=== PATIENT | female | born 1935 | race Caucasian/White ===

== ENCOUNTER → 2017-10-19 | Outpatient (CLI) | payer OTHER ==
[~2017-10-19] MED LIST: AMLO-114 PO; ASPEC81; ENAL10TA88; FLUT0.15 NAE; IPRA1AER2 INH; MULT-506 PO; SIMV20TA2
[2017-10-19 10:10] LABS: BLOOD UREA NITROGEN 13 mg/dl (7-18); CREATININE 0.91 mg/dl (0.60-1.20)
== END | disposition home or self-care (01) ==
LOC: C.LAB 08:29
PROVIDERS: ATTEND Internal Medicine Pulmonary Disease
DX: J43.9 Emphysema, unspecified (principal); I10 Essential (primary) hypertension

== ENCOUNTER → 2017-10-22 | Outpatient (CLI) | payer OTHER ==
[~2017-10-22] MED LIST changes: +OPTIRAY 320 IV PRN
--- NOTE | 2017-10-22 13:47 | DIAGNOSTIC IMAGING REPORT ---
CT OF THE CHEST WITH IV CONTRAST CLINICAL HISTORY: Emphysema. COMPARISON STUDY: Chest CT November 28, 2015. TECHNIQUE: Following IV administration of 93 mL of Optiray-320, helical axial images of the chest were obtained. Sagittal and coronal reconstructions were viewed as well as maximal intensity projections on an independent 3-D workstation. A dose lowering technique was utilized adhering to the principles of ALARA. CT DOSE: 219.99 mGy.cm FINDINGS: The heart is mildly enlarged. Mild dilatation of the ascending aorta, measuring 4.1 cm at the level the main pulmonary artery is unchanged per there is no thoracic aortic dissection. There is no pericardial effusion. There is a mildly enlarged precarinal lymph node that measures 1.4 cm in short axis diameter. This region was obscured on prior CT of November 28, 2015 due to artifact. However, this node was likely present and is unchanged. Central airways are patent. There is moderate emphysema. Linear and groundglass opacities reflect atelectasis. There is no consolidation to suggest pneumonia. Symmetric biapical opacities are unchanged and reflects scarring. The central airways are patent. There is no pneumothorax or pleural effusion. There are no suspicious pulmonary nodules. Bony thorax is unremarkable. A left renal cyst is partially imaged. Calcifications within visualized portions of the pancreas indicate chronic pancreatitis. A 1.5 cm cystic lesion arising from the superior aspect of the pancreatic body shown on axial image 307 of 346 is unchanged since exam of November 24, 2015. This likely reflects a side branch intraductal papillary mucinous neoplasm. There is moderate atherosclerotic plaque of the thoracic aorta. IMPRESSION: 1. No acute intrathoracic findings. 2. Moderate emphysema. 3. No suspicious pulmonary nodules. 4. Mildly enlarged precarinal lymph node which is nonspecific but likely unchanged since CT of November 24, 2015. 5. 1.5 cm cystic lesion within the pancreatic body which is similar to CT of November 24, 2015 and likely reflects a side branch IPMN. Electronically signed by: Abelino Porter M.D. 10/22/2017 1:45 PM Dictated Date/Time: 10/22/2017 1:25 PM
== END | disposition home or self-care (01) ==
LOC: C.CTS 12:43
PROVIDERS: ATTEND Internal Medicine Pulmonary Disease
DX: J43.9 Emphysema, unspecified (principal)

== ENCOUNTER 2018-02-21 15:39 | Emergency (ER) | payer OTHER ==
[~2018-02-21] VITALS: Ht 163.8 cm; Wt 57.0 kg
[~2018-02-21 15:39] MED LIST changes: -ENAL10TA88; +ENAL10TA88 PO; -OPTIRAY 320 IV PRN; -SIMV20TA2; +SIMV20TA2 PO
[2018-02-21 15:47] VITALS: TEMP 36.6; Ht 163.8 cm; Wt 57.0 kg
--- NOTE | 2018-02-21 16:16 | DIAGNOSTIC IMAGING REPORT ---
L FOOT MIN 3 VIEWS ROUTINE HISTORY: 82 years-old Female L foot pain acute left foot pain status post trauma COMPARISON: None available TECHNIQUE: 3 views of the left foot FINDINGS: Bones are mildly demineralized. At least mild degenerative changes about the first MTP joint with mild to moderate multidigit interphalangeal and mild multidigit metatarsal phalangeal osteoarthritis. Prominent medial marginal spurring about the first metatarsal head with mild hallux valgus deformity compatible with bunion formation with mild adjacent soft tissue prominence. There is an acute transverse fracture involving the base of the fifth metatarsal with apparent intra-articular extension into the metatarsal cuboid joint. Moderate associated soft tissue swelling. No opaque foreign body. Mild spurring about the calcaneus and dorsal midfoot. IMPRESSION: 1. Acute nondisplaced transverse fracture involves the proximal metaphyseal portion of the fifth metatarsal with intra-articular extension. 2. Osteopenic appearance of the bones with degenerative changes as above. The above report was generated using voice recognition software. It may contain grammatical, syntax or spelling errors. Electronically signed by: Joaquin Lopez M.D. 02/21/2018 4:15 PM Dictated Date/Time: 02/21/2018 4:13 PM
[2018-02-21] MEDS ORDERED: ACETAMINOPHEN/CODEINE 300/30MG TAB PO ONE (16:30)
[2018-02-21] MEDS ORDERED: ASPI81TA28 PO (16:30)
[2018-02-21] MEDS ORDERED: ACET300T3 PO (16:31)
--- NOTE | 2018-02-21 16:35 | EMERGENCY ROOM VISIT NOTE ---
History First contact with patient: 15:50 Chief Complaint: FOOT PAIN Stated Complaint: LEFT FOOT PAIN HARD TO WALK History of Present Illness The patient is a 82 year old female who presents to the Emergency Room with complaints of left foot pain. The patient reports that her foot went to sleep, and when she got up to walk, her foot inverted. The patient did not fall to the ground. She denies any pain extending into the ankle or leg. Weightbearing worsens her pain to a 6 out of 10. The patient denies any prior history of left foot injuries. Review of Systems 10 system review was performed and was negative except for pertinent positives and negatives as indicated in history of present illness Past Medical/Surgical History Medical Problems: (1) COPD, moderate (2) High cholesterol (3) HTN (hypertension) Surgical Problems: (1) H/O tubal ligation Family History Patient reports no known family medical history. Social History Smoking Status: Former Smoker Drug Use: none Marital Status: Housing Status: lives with significant other Occupation Status: retired Current/Historical Medications Scheduled Amlodipine (Norvasc), 10 MG PO DAILY Aspirin (Aspirin Ec), 81 MG PO DAILY Enalapril (Vasotec), 10 MG PO DAILY Fluticasone Propionate (Nasal) (Flonase Allergy Relief), 2 SPRAYS HOLLIS DAILY Ipratropium-Albuterol (Combivent Respimat), 1 PUFFS INH QID Multivitamin (Multivitamin), 1 TAB PO DAILY Simvastatin (Zocor), 20 MG PO DAILY Scheduled PRN Acetaminophen/Codeine (Tylenol W/Codeine #3), 1-2 TABS PO q4-6h PRN for Pain Physical Exam Vital Signs Date Time Temp Pulse Resp B/P (MAP) Pulse Ox O2 Delivery O2 Flow Rate FiO2 02/21/18 15:47 36.6 80 20 134/69 88 Nasal Cannula 2.0 Physical Exam CONSTITUTIONAL: Healthy and well nourished. Alert and oriented X 3 with positive affect. Patient does not appear in any acute distress. HEENT: Normocephalic, atraumatic. Pupils equal, round and reactive. NECK: Full active range of motion without discomfort. MUSCULOSKELETAL: Examination of the left foot shows dorsal lateral ecchymosis and edema. The patient has no focal tenderness over the lateral malleolus or deltoid ligament. Negative anterior draw. No focal tenderness over the phalanges, calcaneus or Achilles tendon. Pedal pulses are intact. INTEGUMENTARY: No rash or other significant dermatologic conditions noted. NEUROLOGIC: Left foot and toes are sensory intact. Medical Decision & Procedures ER Provider Diagnostic Interpretation: My interpretation of left foot x-rays shows a transverse intra-articular fracture of the fifth metatarsal. Radiologist report is as follows: L FOOT MIN 3 VIEWS ROUTINE HISTORY: 82 years-old Female L foot pain acute left foot pain status post trauma COMPARISON: None available TECHNIQUE: 3 views of the left foot FINDINGS: Bones are mildly demineralized. At least mild degenerative changes about the first MTP joint with mild to moderate multidigit interphalangeal and mild multidigit metatarsal phalangeal osteoarthritis. Prominent medial marginal spurring about the first metatarsal head with mild hallux valgus deformity compatible with bunion formation with mild adjacent soft tissue prominence. There is an acute transverse fracture involving the base of the fifth metatarsal with apparent intra-articular extension into the metatarsal cuboid joint. Moderate associated soft tissue swelling. No opaque foreign body. Mild spurring about the calcaneus and dorsal midfoot. IMPRESSION: 1. Acute nondisplaced transverse fracture involves the proximal metaphyseal portion of the fifth metatarsal with intra-articular extension. 2. Osteopenic appearance of the bones with degenerative changes as above. ED Course Patient history and physical exam were performed. Nurse's notes were reviewed. Vital signs were reviewed. The patient had an O2 saturation of 88% on room air. She does have an oxygen tank with her. The patient was switched to wall O2 at 2 L/min via nasal cannula. The patient's oxygen saturation elevated to 92 %. The patient reports that this is usually what her levels are. The patient refused any analgesics on initial exam. X-rays of the left foot confirms an intra-articular fracture at the base of the fifth metatarsal. A walking boot was applied. The patient reports that she has multiple ambulatory devices at home, including a wheelchair and walker. She was encouraged to intermittently apply ice and elevate the foot for swelling and pain. On final reevaluation, the patient did request some Tylenol with codeine for pain. The patient was administered this, and provided a prescription for the same. She was warned about constipation and drowsiness while taking this medicine. She was instructed to follow-up with [facility] for further reevaluation and management. The patient was happy with plan of care, and voiced understanding of all discharge instructions, rating her discomfort a 4 out of 10. The case was also discussed with Dr. Acosta, ED attending physician, who agrees with workup and plan of care. Medical Decision [place] Drug Monitoring Program Search Results: patient reviewed within database, no issues identified Medication Reconcilliation Current Medication List: was personally reviewed by me Blood Pressure Screening Patient's blood pressure: Normal blood pressure Impression Primary Impression: Fracture of fifth metatarsal bone of left foot Departure Information Prescriptions Acetaminophen/Codeine (Tylenol W/Codeine #3) 300 Mg/30 Mg Tab 1-2 TABS PO q4-6h Y for Pain, #15 TAB For Initial Treatment Prov: Toby Castañeda PA 02/21/18 Referrals Roger Khalil M.D.(LUÍS) (PCP) Patient Instructions My [facility] Problem Qualifiers Primary Impression: Fracture of fifth metatarsal bone of left foot Encounter type: initial encounter Fracture type: closed Fracture alignment : displaced Qualified Codes: S92.352A - Displaced fracture of fifth metatarsal bone, left foot, initial encounter for closed fracture
[2018-02-21 16:39] VITALS: BP 153/66; PULSE 84; O2SAT 95
--- NOTE | 2018-02-21 23:34 | EMERGENCY ROOM VISIT NOTE ---
ED Visit Note First contact with patient: 15:50 I reviewed the patient's past medical history, medications, and visit nursing notes. I discussed the case with the physician blood donor unit assistant, examined the patient, and agree with the findings and plan as documented in the physician assistants note.
== END 2018-02-21 17:20 | disposition home or self-care (01) ==
LOC: C.EDB 15:41 → C.EDD 17:20
DX: S92.355A Nondisplaced fracture of fifth metatarsal bone, left foot, initial encounter for closed fracture (principal); X58.XXXA Exposure to other specified factors, initial encounter; Z87.891 Personal history of nicotine dependence; Z79.82 Long term (current) use of aspirin; Z79.899 Other long term (current) drug therapy; Z79.52 Long term (current) use of systemic steroids

== ENCOUNTER 2019-10-11 04:22 | Inpatient (IN) ==
[2019-10-11] MEDS ORDERED: fentaNYL citrate 100 MCG/2 ML VIAL IV STA (05:15)
[2019-10-11] MEDS ORDERED: SODIUM CHLORIDE 0.9% 1000ML 1,000 ML IV SCH (05:15)
[2019-10-11] MEDS ORDERED: LORazepam 0.5 MG/1 ML VIAL IV STA (05:27)
[2019-10-11] MEDS ORDERED: fentaNYL citrate 100 MCG/2 ML VIAL IV ONE (05:38)
[2019-10-11 06:10] LABS: Basophils # (auto) 0.03 K/uL (0-0.2); Basophils % (auto) 0.3 %; Eosinophils # (auto) 0.06 K/uL (0-0.5); Eosinophils % (auto) 0.6 %; Hematocrit (blood only) 32.6 % (37-47); Hemoglobin 10.7 g/dL (12.0-16.0); Immature Granulocytes # (auto) 0.03 K/uL (0.00-0.02); Immature Granulocytes % (auto) 0.3 %; Lymphocytes # (auto) 0.66 K/uL (1.2-3.4); Lymphocytes % (auto) 6.1 %; Mean Corpuscular Hemoglobin 29.1 pg (25-34); Mean Corpuscular Hgb Conc 32.8 g/dL (32-36); Mean Corpuscular Volume 88.6 fL (80-100); Mean Platelet Volume 9.5 fL (7.4-10.4); Monocytes # (auto) 0.55 K/uL (0.11-0.59); Monocytes % (auto) 5.1 %; Neutrophils # (auto) 9.49 K/uL (1.4-6.5); Neutrophils % (auto) 87.6 %; Platelet Count 323 K/uL (130-400); RDW Coefficient of Variation 14.6 % (11.5-14.5); RDW Standard Deviation 47.5 fL (36.4-46.3); Red Blood Count 3.68 M/uL (4.2-5.4); White Blood Count 10.82 K/uL (4.8-10.8)
[2019-10-11 06:26] LABS: Albumin Level 3.5 gm/dl (3.4-5.0); BUN Creatinine Ratio 14.7 (10-20); Calcium 9.3 mg/dl (8.5-10.1); Creatinine Clr Calc Pharmacy 38.6 ml/min; Est GFR (African American) 68.1; Est GFR (Non-African American) 58.7; Potassium 4.1 mmol/L (3.5-5.1)
[2019-10-11 06:29] LABS: Bilirubin,Total 0.6 mg/dl (0.2-1); Globulin 3.6 gm/dl (2.5-4.0); Total Protein 7.1 gm/dl (6.4-8.2)
[2019-10-11 06:45] LABS: Partial Thromboplastin Ratio 0.9; Partial Thromboplastin Time 24.4 Seconds (21.0-31.0); Prothrombin Time 10.1 Seconds (9.0-12.0)
--- NOTE | 2019-10-11 06:48 | XRay Report ---
XR chest 1V portable CLINICAL HISTORY: trauma COMPARISON STUDY: Chest radiograph November 20, 2018. FINDINGS: This study is significantly rotated. No pneumothorax or pleural effusion is noted. No lobar consolidation is noted. No evidence for pulmonary edema. Allowing for patient rotation, cardiomediastinal silhouette is likel y unremarkable. IMPRESSION: No acute cardiopulmonary findings. Rotated study. ACT 112: Negative or not required by law. Electronically signed by: Abelino Porter M.D. 10/11/2019 6:47 AM
--- NOTE | 2019-10-11 06:49 | XRay Report ---
XR hip LT min 2V CLINICAL HISTORY: trauma COMPARISON: None FINDINGS: Note is made of an acute displaced left femoral neck fracture. No additional fractures are identified on this examination. Sacroiliac joints and symphysis pubis appear intact. IMPRESSION: Acute displaced left femoral neck fracture. ACT 112: Negative or not required by law. Electronically signed by: Abelino Porter M.D. 10/11/2019 6:48 AM
--- NOTE | 2019-10-11 07:25 | Orthopedic Consultation ---
Date of Consultation October 11, 2019 Assessment & Plan (1) Subcapital fracture of left hip: Will require Left hip hemiarthroplasty to return to ambulation. Small elevation in WBC - recommend UA Keep NPO. Hospitalist service reports that she is otherwise clear for surgery - can plan for surgery this morning. Plan for admission for evaluation by PT/OT before disposition to next level of care. Expect to be WBAT with posterior hip precautions. Plan for 6 weeks of DVT ppxconsider Lovenox while inpatient and transition to daily aspirin, defer choice to the hospitalist service.. History of Present Illness Reason for Consultation: left femoral neck fracture Attending Physician: Ruddy Hancock MD History of Present Illness 84 yo F with O2-dependency from COPD and pulmonary HTN who lives independently tripped over oxygen cord in bathroom, resulting in fall and subsquent pain and difficulty WBing on LLE. Was brought to [place] ED overnight and diagnosed with left femoral neck fracture. She was accompanied in her hospital room today by her daughter, who is the power of litigation attorney associate and her granddaughter. They report that she lives independently and does not use a cane or walker to ambulate. Her oxygen requirement recently increased but she has been cared for recently by her senior ui designer. They deny recent illnesses nor hip pain. Allergies Allergy/AdvReac Type Severity Reaction Status Date / Time bee venom protein (honey bee) Allergy Mild RASH Verified 10/11/19 05:59 Home Medications Home Medications Medication Instructions Recorded Confirmed Type amlodipine 10 mg tablet 10 mg PO DAILY 09/15/19 10/11/19 History aspirin 81 mg tablet,delayed 81 mg PO DAILY 09/15/19 10/11/19 History release enalapril maleate 10 mg tablet 10 mg PO DAILY 09/15/19 10/11/19 History epinephrine 0.3 mg/0.3 mL 0.3 mg IM UD PRN 09/15/19 10/11/19 History injection, auto-injector fluticasone propionate 50 2 sprays INTNAS DAILY 09/15/19 10/11/19 History mcg/actuation nasal spray,suspension ipratropium-albuterol 0.5 mg-3 3 ml INH Q6H PRN ml 09/15/19 10/11/19 History mg(2.5 mg base)/3 mL nebulization soln multivitamin 1 tab PO DAILY 09/15/19 10/11/19 History simvastatin 20 mg tablet 20 mg PO QPM 09/15/19 10/11/19 History cholecalciferol (vitamin D3) 1,000 unit PO DAILY 10/11/19 10/11/19 History [Vitamin D3] Patient History Medical History COPD, moderate (Chronic) High cholesterol (Chronic) HTN (hypertension) (Chronic) Surgical History H/O tubal ligation (Resolved) "1972" Family History Other No pertinent family history Social History Preferred Language: Andorran Communication Ability: Effective Maintenance Supervisor Required: No Beliefs That Will Affect Care: None Current Living Situation: Alone Other Information That Helps Us Care for You: No Feels Safe at Home: Yes Safety Concerns: Feels Safe At This Time Smoking Status: Current every day smoker Tobacco Type: cigarettes ; Do You Dip or Chew Tobacco: No ; Smoking End Date: 1-2 per day. Use to be a 1 PPD smoker. Trying to quit. ; Second Hand Exposure: No ; Tobacco Cessation Education Requested by Patient: Yes Hx Substance Use: No Review of Systems Constitutional: no fever, no chills and no problem reported Eyes: as per Subjective / HPI; no problem reported Ear, Nose, Mouth, Throat: as per Subjective / HPI; no problem reported Respiratory: as per Subjective / HPI; no problem reported Cardiovascular: no edema and no problem reported Gastrointestinal: no nausea, no vomiting and no problem reported Musculoskeletal: as per Subjective / HPI Integumentary: as per Subjective / HPI; no problem reported Neurologic: no tingling, no paresthesia and no problem reported Psychiatric: no problem reported Endocrine: as per Subjective / HPI Hematologic / Lymphatic: as per Subjective / HPI Allergy / Immunological: no problem reported Physical Exam Constitutional: well nourished, + thin and + underweight; no acute distress, not ill appearing and no altered mental status Eyes: PERRL, conjunctivae normal, anicteric sclerae ENMT: external ear and nose normal, oropharynx normal Respiratory: normal respiratory effort; no labored breathing Using oxygen by nasal cannula. Cardiovascular: Extremities: normal capillary refill; no pedal edema Musculoskeletal: Left lower extremity: The skin overlying the hip is without disruption. She has position with high hip and knee flexion, stating this is the most comfortable position. There is no obvious ecchymosis. She can dorsiflex and plantarflex through the her ankle and has positive EHL activity. She has 2+ DP and PT pulses. Sensation is grossly intact to light touch. Results & Data Vital Signs (Past 12 Hours) Vital Signs Temp Pulse Pulse Resp BP BP Pulse Ox 10/11/19 07:11 86 20 140/67 95 10/11/19 06:10 83 16 130/65 94 10/11/19 04:32 36.6 C 95 H 18 147/66 H 95 PG Care Time/CCT Total # of Minutes Spent Total Time Spent with Patient: Total time spent is greater than 50% in coordination of care (as documented) at patient's floor/unit and/or counseling patient: (1) Subcapital fracture of left hip Encounter type: initial encounter Fracture type: closed Qualified Code(s): S72.012A - Unspecified intracapsular fracture of left femur, initial encounter for closed fracture
[2019-10-11] MEDS ORDERED: POLYETHYLENE (MIRALAX) 17 GM PACK PO PRN (07:57)
[2019-10-11] MEDS ORDERED: ONDANSETRON INJ 2 MG/ML 2 ML VIAL IV PRN ×2 (07:57→14:40)
[2019-10-11] MEDS ORDERED: EPINEPHRINE ADULT AUTO-INJECT 0.3 MG SYR IM PRN (07:57)
[2019-10-11] MEDS: SODIUM CHLORIDE 0.9% 1000ML 1,000 ML IV SCH ×2 (09:15→21:20)
[2019-10-11] MEDS: HYDROmorphone INJ 0.5 MG/0.5 ML SYR IV PRN (09:17)
[2019-10-11] MEDS ORDERED: fentaNYL citrate 100 MCG/2 ML VIAL ONE (10:02)
[2019-10-11] MEDS ORDERED: BACITRACIN INJ 50,000 UNIT VIAL ONE (10:07)
[2019-10-11] MEDS ORDERED: BUPIVACAINE 0.5 % 5 MG/1 ML MPF 30ML VIAL ONE (10:07)
[2019-10-11 10:14] LABS: Appearance Urine Clear (Clear); Bilirubin Urine Negative (Negative); Blood Urine Negative (Negative); Color Urine Yellow; Glucose Urine UA Negative (Negative); Ketones Urine Negative (Negative); Leukocyte Esterase Urine Negative (Negative); Nitrite Urine Negative (Negative); Protein Urine Negative (Negative); Specific Gravity Urine 1.011 (1.000-1.030); Urobilinogen Urine Negative (Negative)
--- NOTE | 2019-10-11 10:25 | History and Physical Report ---
DATE OF ADMISSION: 10/11/2019 CHIEF COMPLAINT: Status post fall and left hip fracture. HISTORY OF PRESENT ILLNESS: This is an 84-year-old female with past medical history significant for hyperlipidemia, COPD - on home oxygen, pulmonary hypertension, hypertension. The patient lives alone. She comes with a fall and found to have a left hip fracture. In the middle of the night when she went to bathroom, she tripped on her oxygen cannula and fell in the bathroom. She somehow got into the bedroom and sat in a chair and she waited until 3:30 in the morning to call her daughter and was brought in here. Imaging study shows a left hip fracture. After the pain medication, currently she feels drowsy. She says she did not loss her consciousness. She did not hit her head. Denies any headache, no dizziness, no blurred vision, no earache, no runny nose, no sore throat, no difficulty swallowing. Appetite is okay. No chest pain, no shortness of breath, no cough, no fevers, no nausea, no vomiting, no abdominal pain. Sometimes constipated, but no black stools or bloody stools. Normal bladder movements. No hematuria. No swelling in the legs, no rash. Hemodynamically stable. Daughter says the patient is otherwise very active. She can climb steps and walk without any issues. ALLERGIES: BEE STINGS. PAST MEDICAL HISTORY: As mentioned above. PAST SURGICAL HISTORY: Ligation of oviduct, appendectomy, cataract surgery. MEDICATIONS: The patient is on Flonase 2 sprays to each nostril daily, DuoNeb q.6 hours p.r.n., simvastatin 20 mg p.o. daily, enalapril 10 mg p.o. daily, amlodipine 10 mg p.o. daily, vitamin D 2000 units p.o. daily, EpiPen p.r.n., multivitamins p.o. daily, aspirin 81 mg p.o. daily. FAMILY HISTORY: Significant for mother had diabetes, stroke. Daughter has hypothyroidism. Father at the age of 65. Sister has ND. SOCIAL HISTORY: , currently lives alone. Quit smoking in 2017, smoked for 48 years. Alcohol rare. No drug use. REVIEW OF SYMPTOMS: As per HPI. Rest of the review of systems is negative. PHYSICAL EXAMINATION: GENERAL: The patient is old and frail, not in acute distress. VITAL SIGNS: Temperature 36.6, pulse 83, respiratory rate 16, blood pressure 130/65, oxygen 95% on 2.5 liters. HEENT: No pallor, no icterus. Pupils equal, round, reactive to light. NECK: No JVD, no neck masses, no carotid bruits. CARDIOVASCULAR: S1, S2 heard, regular rhythm. No murmurs. RESPIRATORY SYSTEM: Normal AP diameter. No accessory muscle use. No wheezing, no crackles. ABDOMEN: Soft, bowel sounds present, nontender. No distention. CENTRAL NERVOUS SYSTEM: Cranial nerves II-XII grossly intact. Nonfocal. EXTREMITIES: No edema, no erythema. LABORATORY DATA: WBC 10.8, hemoglobin 10.7, hematocrit 30.6, platelets 323. PT 10.1, INR 1, APTT 24.4. Sodium 133, potassium 4.1, chloride 98, bicarbonate 30, BUN 13, creatinine 0.9, serum glucose 131, calcium 9.3, total bilirubin 0.6, AST 20, ALT 19, alkaline phosphatase 61. Chest x-ray: No acute pulmonary findings. Left hip x-ray: Acute displaced left femoral neck fracture. EKG: Normal sinus rhythm with rate of 92. No significant change from previous EKG. ASSESSMENT AND PLAN: This is an 84-year-old female who presents with fall and left hip fracture. 1. Mechanical fall, left hip fracture, acute displaced left femoral neck fracture. Laboratories are okay. Chest x-ray and EKG are unremarkable. The patient is otherwise active, but she uses oxygen 2.5 liters while resting and sleeping and 3 liters while ambulating because of her chronic obstructive pulmonary disease. The patient should be at acceptable risk to proceed with surgery. We will keep her n.p.o., IV fluids, IV pain medications p.r.n., IV antiemetics p.r.n. and consult Orthopedics. Monitor on the medical floor. 2. History of chronic obstructive pulmonary disease and pulmonary hypertension. Continue home oxygen and and nebulizers p.r.n. Currently stable.Stress echo in 2014 Normal Ef and Pulmonary artery pressure of 49mmhg. 3. Hypertension. Continue amlodipine, enalapril. 4. Hyperlipidemia, on statin. 5. Deep venous thrombosis prophylaxis. Could not put sequential compression devices because of the femur fracture and could not place on anticoagulation secondary to plan for surgery. Postoperatively, deep venous thrombosis prophylaxis per surgery. 6. Disposition: Admit to medical floor. Physical therapy and occupational therapy prior to discharge. Social Service to help with discharge planning. Code status: Level 1, full code. MTDD
--- NOTE | 2019-10-11 10:51 | Anesthesiology Consultation ---
Date of Service October 11, 2019 Assessment & Plan (1) Encounter for pre-operative examination: Chart Review Chart Review: Acceptable Risk for Surgery and Patient NOT seen in Pre Admission Testing Consults Requested none ASA ASA4 Proposed Anesthesia Anesthesia Type: Spinal Risk / Benefits Reviewed With: PT / POA / Parent / Guardian, Accepts Plan and Informed Consent Obtained History Surgery Operation Date: 10/11/19 09:30 Proposed Procedures p Left Bipolar Hip Hemiarthroplasty(Left) - Ruddy Santi Height/Weight Height: 5 ft 5 in Weight: 53.2 kg Allergies Allergy/AdvReac Type Severity Reaction Status Date / Time bee venom protein (honey bee) Allergy Mild RASH Verified 10/11/19 05:59 Medications Home Medications Medication Instructions Recorded Confirmed Last Taken amlodipine 10 mg tablet 10 mg PO DAILY 09/15/19 10/11/19 10/10/19 aspirin 81 mg tablet,delayed 81 mg PO DAILY 09/15/19 10/11/19 10/10/19 release enalapril maleate 10 mg tablet 10 mg PO DAILY 09/15/19 10/11/19 10/10/19 epinephrine 0.3 mg/0.3 mL 0.3 mg IM UD PRN 09/15/19 10/11/19 Unknown injection, auto-injector fluticasone propionate 50 2 sprays INTNAS DAILY 09/15/19 10/11/19 10/10/19 mcg/actuation nasal spray,suspension ipratropium-albuterol 0.5 mg-3 3 ml INH Q6H PRN ml 09/15/19 10/11/19 10/10/19 mg(2.5 mg base)/3 mL nebulization soln multivitamin 1 tab PO DAILY 09/15/19 10/11/19 10/10/19 simvastatin 20 mg tablet 20 mg PO QPM 09/15/19 10/11/19 10/10/19 cholecalciferol (vitamin D3) 1,000 unit PO DAILY 10/11/19 10/11/19 10/10/19 [Vitamin D3] Active Medications Generic Name Dose Route Start Last Admin Trade Name Freq PRN Reason Stop Dose Admin Hydromorphone HCl 0.5 mg 10/11/19 07:57 10/11/19 09:17 Dilaudid IV 10/25/19 07:56 0.5 mg Q3H PRN Administration Pain Sodium Chloride 1,000 mls @ 80 mls/hr 10/11/19 09:00 10/11/19 09:15 Nss 1000ml IV 11/10/19 08:59 80 mls/hr .[id number] SHARITA Administration NPO Date Last Intake of Fluids: 10/10/19 Time Last Intake of Fluids: 23:30 Date Last Intake of Solids: 10/10/19 Time Last Intake of Solids: 21:30 Past Medical History Medical History COPD, moderate (Chronic) High cholesterol (Chronic) HTN (hypertension) (Chronic) Exercise / Class Metabolic Activity IV < 2 Limit ADL/Bedbound Past Family History Family History Other No pertinent family history Past Surgical History Surgical History H/O tubal ligation (Resolved) "1972" History of appendectomy Social History Smoking Status: Current every day smoker tobacco type: cigarettes Do You Dip or Chew Tobacco: No Smoking End Date: 1-2 per day. Use to be a 1 PPD smoker. Trying to quit. Alcohol type: wine alcohol intake frequency: holidays/special occasions only Hx Substance Use: No Physical Exam Vital Signs Last Vital Signs Temp 36.9 C 10/11/19 07:58 Pulse 91 H 10/11/19 07:58 Resp 18 10/11/19 07:58 BP 134/69 10/11/19 07:58 Pulse Ox 91 10/11/19 07:58 Constitutional not obese ENMT Mouth: + edentulous; no TMJ abnormality and oral opening not small Thyromental Distance: < 3.5 Finger Breadths Mallampati Class: II Neck normal visual inspection; neck extension not limited Respiratory normal respiratory effort Auscultation: lungs clear to auscultation bilaterally Cardiovascular Rate/Rhythm: regular rate and regular rhythm Heart Sounds: no murmur Neurologic moves all extremities Psychiatric Orientation: alert and oriented x 3 Testing Laboratory Results 10/11/19 05:52 10/11/19 05:52 PT 10.1 Seconds (9.0-12.0) 10/11/19 05:52 INR 1.0 (0.9-1.1) 10/11/19 05:52 APTT 24.4 Seconds (21.0-31.0) 10/11/19 05:52 Urine Color Yellow 10/11/19 09:55 Urine Appearance Clear (Clear) 10/11/19 09:55 Urine pH 8.0 (4.5-7.5) H 10/11/19 09:55 Ur Specific [place] 1.011 (1.000-1.030) 10/11/19 09:55 Urine Protein Negative (Negative) 10/11/19 09:55 Urine Glucose (UA) Negative (Negative) 10/11/19 09:55 Urine Ketones Negative (Negative) 10/11/19 09:55 Urine Nitrite Negative (Negative) 10/11/19 09:55 Ur Leukocyte Esterase Negative (Negative) 10/11/19 09:55 Electrocardiogram Date: 10/11/19 Normal sinus rhythm Minimal voltage criteria for LVH, may be normal variant Possible Anterior infarct , age undetermined Chest X-Ray Normal sinus rhythm (92) Minimal voltage criteria for LVH, may be normal variant Possible Anterior infarct , age undetermined Echocardiogram Date: 10/23/17 EF: 65-70% LV Function: normal Other Findings: + LVH (mild, concentric) and + diastolic dysfunction (grade 1) Valvular Disease: + no significant valvular disease mildly elevated RVSP (46 mmHg)
[2019-10-11] MEDS ORDERED: BUPIVACAINE/EPINEPHRINE 0.5% MPF 1:200,000 10 ML VIAL ONE (11:03)
[2019-10-11] MEDS ORDERED: BUPIVACAINE LIPOSOME 1.3% 266 MG/20 ML VIAL ONE (12:12)
[2019-10-11] MEDS ORDERED: SODIUM CHLORIDE 0.9% PF 50 ML VIAL ONE (12:12)
[2019-10-11] MEDS ORDERED: BUPIVACAINE/EPINEPHRINE 0.25% 1:200,000 30 ML VIAL ONE (12:12)
[2019-10-11] MEDS ORDERED: PROPOFOL IV EMULSION 10 MG/ML 20 ML VIAL IV ONE (13:50)
[2019-10-11] MEDS ORDERED: ePHEDrine sulfate 50 MG/ML SYR ONE (13:50)
[2019-10-11] MEDS ORDERED: PHENYLEPHRINE HCL 10 MG/ML VIAL ONE (13:50)
[2019-10-11] MEDS ORDERED: LIDOCAINE HCL 2% 2 ML VIAL/AMP(20MG/ML) INFIL ONE (13:50)
[2019-10-11] MEDS ORDERED: PHENYLEPHRINE 100MCG/ML 5ML SYR ONE (13:50)
[2019-10-11] MEDS: CHOLECALCIFEROL 1,000 UNITS TAB PO SCH (13:55)
[2019-10-11] MEDS: MULTIVITAMIN TAB PO SCH (13:55)
[2019-10-11] MEDS: FLUTICASONE PROPIONATE NA SPR 16 GM BTL SCH (13:58)
--- NOTE | 2019-10-11 14:02 | Post Operative Brief Note ---
PG Immediate Post Op with CF Date of Surgery October 11, 2019 Pre & Post Diagnosis Operation Date: 10/11/19 09:30 Pre-Op Diagnosis: left femoral neck fracture Post-Op Diagnosis: left femoral neck fracture I identified the patient and participated in the time-out.: Yes Procedure Operation Date: 10/11/19 09:30 Actual Procedures p Left Bipolar Hip Hemiarthroplasty(Left) - Ruddy Hancock Surgeon Ruddy Hancock Nail Feeder Lobo, PAShaunnaC Estimated Blood Loss 50 Findings Consistent with Post-Op Diagnosis Specimens Specimen Description: Permanent: A. Left Femoral Head Drains Wilhelm Catheter (patient arrived to OR with patent wilhelm draining clear yellow urine)
--- NOTE | 2019-10-11 14:03 | Operative Report ---
PG Post Operative Report Pre & Post Diagnosis Operation Date: 10/11/19 09:30 Pre-Op Diagnosis: left femoral neck fracture Post-Op Diagnosis: left femoral neck fracture I identified the patient and participated in the time-out.: Yes Procedure Operation Date: 10/11/19 09:30 Actual Procedures p Left Bipolar Hip Hemiarthroplasty(Left) - Ruddy Hancock Surgeon Ruddy Hancock Injection Wax Molder PATRICIA Diamond Estimated Blood Loss 50 Findings Consistent with Post-Op Diagnosis Biomet/Kandy left bipolar hemiarthroplasty implants: Stem8 mm Taperloc, standard Shell/liner45 mm RingLoc Head28 mm ceramic, standard, +0 neck Fluids See anesthetic record Specimens Femoral head to pathology. Anesthesia Type MAC Spinal Regional Complications none Disposition Accompanied Patient To Recovery: No Disposition: Surgical ICU Indications 84-year-old independent living female who sustained a fall in her bathroom after tripping on her oxygen line. She had immediate pain and inability to bear weight. She is admitted to the emergency room with a femoral neck fracture. Orthopedics was consulted for operative management. The risks and benefits of surgery were reviewed with the family members in detail. Her power of insurance attorney was her daughter who participated in the consent process. We discussed the risks include but are not limited to infection, neurovascular injury, need for revision surgery, pain syndromes, leg length discrepancy, hip instability, blood clots and complications related to anesthesia. The power of insurance attorney, the patient, and accompanying family members asked appropriate questions, demonstrated a good understanding, and elected to proceed with operative stabilization of her hip fracture with a partial hip replacement or hemia rthroplasty. We did discuss her nickel allergy. We evaluated the implant options and were limited to the use of cobalt chrome for a bipolar hemiarthroplasty situation. I did not think the risk of instability and further bleeding and morbidity of a total hip arthroplasty surgery would warrant the avoidance of cobalt-chromium for its minimal nickel content. We did plan for a titanium convertible stem, ceramic head, and standard polyethylene and cobalt- chromium bipolar shell. I discussed that the stem will be convertible if she develops an allergy. In that situation the cobalt chromium bipolar shell could be removed for a total hip arthroplasty without cobalt chromium components. They were agreeable to proceed today with a bipolar hemiarthroplasty as described. Description of Procedure On the day of surgery was agreed in the preoperative holding area with informed consent was reviewed and confirmed by the patient. The the operative extremity was identified by the patient and then signed by myself. She was then turned over anesthesia. Anesthesia took the patient to the operating room and positioned upon the OR after placing a spinal anesthetic. The spinal was placed and had excellent effect. She was then positioned for surgery in the lateral decubitus position of her left hip surgery. All bony prominences were well-padded. A Stulberg positioner was used to hold the pelvis firmly in the lateral decubitus position. The right lower extremity then prepped and draped in usual sterile fashion. Surgical timeout was called by the circulating nurse and verified by all present. Laterality was confirmed and appropriate equipment and implants were available and functional. Surgery was initiated by creating a standard posterior approach to the hip with a sharp incision over the greater trochanter measuring at least 8 cm. Dissection was carried out using Bovie electrocautery for hemostasis. Skin rakes were used to assist with retracting the skin layers. The fascia was then identified and exposed using a Wright. We marked the midpoint to plan for a accurate repair of the IT band. Then used a 10 blade to incise to the IT band and carried up into the muscular tissues of the gluteus cyrus. We spread in line with the raphe and carried the opening of the fascia down distally to approximately the gluteal sling. The Charnley self-retaining retractor was then placed to hold open the fascial incision. We then internally rotated the hip and exposed the bursa which was taken down using the Bovie. We exposed the short external rotators and the piriformis tendon which was identified. We then tagged the piriformis and short external hip rotators with separate Ti-Cron sutures. We then used a Bovie to take down the piriformis and short external rotators with caution for the nearby sciatic nerve. We internally rotated the hip to expose the hip capsule we removed soft tissue by scraping with a lap sponge. Then performed a capsulotomy in a T-shaped fashion across the base of the neck and extending along the course of the neck. We tacked the corners with 0 Ethibond sutures. The femoral neck fracture was then exposed. The hematoma was evacuated. The neck cut was then plan using the proprietary template from [employer]. Bovie electrocautery was used to williams the planned neck cut approximately 1 fingerbreadth above the lesser trochanter. Sagittal saw was then used to complete this cut. We then used a rongeur to to remove excess bone on the lateral aspect of the femoral neck. We then worked to remove the femoral head first using a corkscrew and next using the tenaculum. We did have to rotate this to put tension of the ligament teres and the used a shoehorn device to disrupt the ligamentum teres. The acetabulum was cleared of debris and appeared unhealthy cartilage. We did remove some excess capsular tissue in the most inferior aspect to ensure we did not have tissue blocking our reduction. Adequate hemostasis was achieved. We then sized the acetabulum using the ball shaped sizers. We had a good suction fit and fill using a 45 template. The Charnley retractor was then removed. The femoral intertrochanteric was then exposing the femoral retractors. The double foot retractor was placed under the femoral neck. Sharp Hohmann was placed behind the abductor sling. This exposed the entrance to the femoral canal well. We used a hot box spotter to remove excess lateral femoral neck and access the intertrochanteric region. We then used a canal finder to access the canal. The lateralizing reamer was then placed into this canal and used to remove excess bone from the lateral aspect of the greater trochanter to ensure no induced varus. We then began our broach sequence. A size 4 broach was then used to initiate and find the canal. This was sunk easily. We then moved sequentially from a size 5 up to a size 8 broach. This had adequate fill and fit. We used the broach to rasp the lateral aspect of our canal entrance. We then sunk the 8 while ensuring appropriate version which was marked on the base of the femoral neck. The size 8 broach was left in place for trialing. We put on a standard neck and 45 head. This appeared to be an adequate fit and adequate islam of leg length and excellent stability. Provided the ability to externally rotate the foot in full extension approximately 30 degrees. Hip flexed past 90 with good stability and internally rotated approximately 60 degrees before liftoff inside the acetabulum. There was excellent mid flexion stability with no shuck or toggle. We then removed our trial implants and thoroughly irrigated the canal. We then placed the stem down in the canal and use the positioner device to ensure appropriate rotation, before sinking the final implant down to the level of neck cut. It had good capture of the femur. There was no evidence of fracture. The joint was then thoroughly irrigated with bacitracin impregnated pulse lavage. We then began our closing sequence. This involve repair of her capsule layers using side to side repair in [id number] fashion of her longitudinal cut. We then tied the previous tagging sutures in the capsular corners together firmly. This repaired her back wall of the capsule well. 2 mm drill bit was used to access the piriformis fossa for independent repair of the conjoined tendon and piriformis. A firm knot was tied after passing the sutures through the bone tunnel. We irrigated once again thoroughly. We then positioned the hip in anatomic position and began closure of the IT band and fascial layer. For this we use #1 PDS suture in a running and interrupted fashion. Then thoroughly irrigated once again. We then closed the fatty layer using interrupted size 0 undyed Vicryl suture in the deep fascial layers followed by interrupted 2-0 Polysorb suture in the subcuticular layer. The final skin closure was performed with pa. The wound was then cleansed and dressed with sterile Xeroform, sterile gauze, and ABD. Foam tape was used to hold her dressing. The patient tolerated procedure well. She awoke from anesthesia without complication in the operating room. She was rolled supine and an abduction pillow was placed. She was transferred onto her hospital bed and then escorted to the PACU by anesthesia in stable condition. Disposition: She will be weightbearing as tolerated and begin physical therapy as soon as possible. We will use routine DVT prophylaxis consisting of Lovenox while inpatient and likely transition to oral aspirin therapy. We will get postoperative x-ray in the PACU. Surgical findings and plan ahead will be reviewed with the family members. I attest to the content of the Intraoperative Record and any orders documented therein. Any exceptions are noted below.
[2019-10-11] MEDS ORDERED: fentaNYL citrate 100 MCG/2 ML VIAL IV PRN (14:40)
[2019-10-11] MEDS ORDERED: ALBUT/IPRATROP 3MG/0.5MG NEB 3 ML VIAL INH PRN (14:40)
[2019-10-11] MEDS ORDERED: ATROPINE SULFATE 0.1 MG/ML 10ML SYR IV PRN (14:40)
[2019-10-11] MEDS ORDERED: ePHEDrine sulfate 50 MG/ML AMP IV PRN (14:40)
[2019-10-11] MEDS: ENALAPRIL MALEATE 10 MG TAB PO SCH (14:49)
[2019-10-11] MEDS: AMLODIPINE BESYLATE 5 MG TAB PO SCH (14:49)
--- NOTE | 2019-10-11 15:17 | XRay Report ---
XR hip LT min 2V CLINICAL HISTORY: Post-Operative implant position COMPARISON: Left hip radiographs performed earlier today. FINDINGS: Alignment of the total left hip arthroplasty is anatomic. There is no periprosthetic fract ure or unexpected radiopaque foreign body. There are skin pa. IMPRESSION: Expected findings following total left hip arthroplasty. ACT 112: Negative or not required by law. Electronically signed by: Abelino Porter M.D. 10/11/2019 3:16 PM
--- NOTE | 2019-10-11 15:19 | XRay Report ---
XR chest 1V portable CLINICAL HISTORY: SOB after surgery COMPARISON STUDY: Chest CT October 2017. Chest radiograph performed earlier today. FINDINGS: Patient is rotated. Skinfold projects over the left hemithorax. There is no pneumothorax or pleural effusion. There is no consolidation. Cardiac size is unremarkable. Mediastinal contours are unremarkable when allowing for patient rotation. There is pulmonary vascular congestion without overt pulmonary edema. IMPRESSION: 1. Pulmonary vascular congestion without overt pulmonary edema. 2. Rotated study. ACT 112: Negative or not required by law. Electronically signed by: Abelino Porter M.D. 10/11/2019 3:18 PM
[2019-10-11] MEDS ORDERED: NALOXONE HCL 0.4 MG/1 ML VIAL/CARP IV PRN (15:47)
--- NOTE | 2019-10-11 17:13 | Anesthesiology Progress Note ---
Date of Service October 11, 2019 Anesthesia Post Procedure Vital Signs Vital Signs: Temp Pulse Pulse Pulse Resp BP BP 10/11/19 16:38 36.3 C L 98 H 16 126/64 10/11/19 16:06 37 C 90 16 129/66 10/11/19 15:39 37.0 C 95 H 16 145/71 H 10/11/19 15:30 93 H 14 10/11/19 15:26 92 H 14 140/63 10/11/19 15:25 91 H 14 10/11/19 15:21 93 H 16 141/72 H 10/11/19 15:20 92 H 14 10/11/19 15:16 91 H 14 140/73 10/11/19 15:15 37.6 C H 92 H 14 10/11/19 15:11 91 H 12 130/69 10/11/19 15:10 94 H 12 10/11/19 15:06 95 H 16 136/72 10/11/19 15:05 96 H 15 10/11/19 15:01 93 H 20 120/70 10/11/19 15:00 94 H 10 L 10/11/19 14:56 85 14 136/68 10/11/19 14:55 87 16 10/11/19 14:51 91 H 20 145/87 H 10/11/19 14:50 91 H 17 10/11/19 14:49 90 18 10/11/19 14:47 91 H 22 149/70 H 10/11/19 14:45 86 10 L 10/11/19 14:41 89 23 160/75 H 10/11/19 14:40 92 H 19 10/11/19 14:36 89 15 150/77 H 10/11/19 14:35 91 H 21 10/11/19 14:31 92 H 23 142/74 H 10/11/19 14:30 94 H 16 10/11/19 14:26 95 H 19 157/78 H 10/11/19 14:25 96 H 16 10/11/19 14:21 87 17 166/82 H 10/11/19 14:20 89 21 10/11/19 14:16 90 14 160/76 H 10/11/19 14:15 25 H 10/11/19 14:11 94 H 23 158/81 H 10/11/19 14:10 96 H 19 10/11/19 14:06 37.1 C 93 H 92 H 24 156/84 H 156/84 H 10/11/19 07:58 36.9 C 91 H 18 134/69 10/11/19 07:11 86 20 140/67 10/11/19 06:10 83 16 130/65 10/11/19 04:32 36.6 C 95 H 18 147/66 H Pulse Ox 10/11/19 16:38 91 10/11/19 16:06 96 10/11/19 15:39 95 10/11/19 15:30 94 10/11/19 15:26 95 10/11/19 15:25 95 10/11/19 15:21 95 10/11/19 15:20 93 10/11/19 15:16 92 10/11/19 15:15 92 10/11/19 15:11 90 10/11/19 15:10 92 10/11/19 15:06 92 10/11/19 15:05 92 10/11/19 15:01 88 L 10/11/19 15:00 88 L 10/11/19 14:56 99 10/11/19 14:55 99 10/11/19 14:51 99 10/11/19 14:50 99 10/11/19 14:49 97 10/11/19 14:47 97 10/11/19 14:45 97 10/11/19 14:41 97 10/11/19 14:40 92 10/11/19 14:36 89 L 10/11/19 14:35 86 L 10/11/19 14:31 88 L 10/11/19 14:30 90 10/11/19 14:26 90 10/11/19 14:25 90 10/11/19 14:21 92 10/11/19 14:20 93 10/11/19 14:16 93 10/11/19 14:15 89 L 10/11/19 14:11 88 L 10/11/19 14:10 95 10/11/19 14:06 94 10/11/19 07:58 91 10/11/19 07:11 95 10/11/19 06:10 94 10/11/19 04:32 95 Pain Intensity Left Hip: Pain Intensity: 0 Transfer of Care Handoff Completed per policy Notes Mental Status: alert / awake / arousable and participated in evaluation Nausea / Vomiting: adequately controlled Pain: adequately controlled Airway Patency, RR, SpO2: stable & adequate BP & HR: stable & adequate Hydration State: stable & adequate Neuraxial Anesthesia: was administered and sensory block is resolving Anesthetic Complications: no major complications apparent and Pt Satisfied with anesthetic care Notes: Patient c/o SOB in PACU. CXR ordered and reviewed - consistent with COPD but without any acute findings. Given nebulizer treatment with good effect. Continuous pulse oximetry ordered for the floor.
[2019-10-11] MEDS: ACETAMINOPHEN 325 MG TAB PO PRN (17:53)
--- NOTE | 2019-10-11 18:41 | Emergency Department Note ---
Entered by [place] acting as a scribe for History of Present Illness General Chief complaint: Fall Stated complaint: Fall, Left Hip pain Time Seen by Provider: 10/11/19 05:05 Source: patient History of Present Illness Onset (ago): hour(s) (5.5) Location: hip and left Severity: severe Pain Consistency: + constant Maximum Pain Intensity: 7 Exacerbated By: + movement Associated symptoms: + denies other symptoms (abdominal pain, neck pain); no chest pain and no shortness of breath The patient is an 84 y/o female who presents to the ED w/ CC of constant, severe, left hip pain beginning 5.5 hours ago. The patient states she fell this morning around 0000 when she was trying to go to the restroom. She reports she thinks she tripped over her oxygen cord. The patient notes she cannot move her left hip without a significant increase in her discomfort. She states she did not call her daughter until 3 hours after the fall because she wanted her to sleep. The patient denies abdominal pain, neck pain, chest pain, and shortness of breath. Home Medications Home Medications Medication Instructions Recorded Confirmed Type amlodipine 10 mg tablet 10 mg PO DAILY 09/15/19 10/11/19 History aspirin 81 mg tablet,delayed 81 mg PO DAILY 09/15/19 10/11/19 History release enalapril maleate 10 mg tablet 10 mg PO DAILY 09/15/19 10/11/19 History epinephrine 0.3 mg/0.3 mL 0.3 mg IM UD PRN 09/15/19 10/11/19 History injection, auto-injector fluticasone propionate 50 2 sprays INTNAS DAILY 09/15/19 10/11/19 History mcg/actuation nasal spray,suspension ipratropium-albuterol 0.5 mg-3 3 ml INH Q6H PRN ml 09/15/19 10/11/19 History mg(2.5 mg base)/3 mL nebulization soln multivitamin 1 tab PO DAILY 09/15/19 10/11/19 History simvastatin 20 mg tablet 20 mg PO QPM 09/15/19 10/11/19 History cholecalciferol (vitamin D3) 1,000 unit PO DAILY 10/11/19 10/11/19 History [Vitamin D3] Allergies Allergy/AdvReac Type Severity Reaction Status Date / Time bee venom protein (honey bee) Allergy Mild RASH Verified 10/11/19 05:59 nickel AdvReac Redness of Verified 10/11/19 12:21 Skin Past Med/Surg History Medical History COPD, moderate (Chronic) High cholesterol (Chronic) HTN (hypertension) (Chronic) Surgical History H/O tubal ligation (Resolved) "1972" History of appendectomy Family History Other No pertinent family history Social History Preferred Language: Kiswahili Communication Ability: Effective Complex Care Nurse Practitioner Required: No Beliefs That Will Affect Care: None marital status: / Current Living Situation: Alone Other Information That Helps Us Care for You: No Feels Safe at Home: Yes Safety Concerns: Feels Safe At This Time Smoking Status: Current every day smoker Tobacco Type: cigarettes ; Do You Dip or Chew Tobacco: No ; Smoking End Date: 1-2 per day. Use to be a 1 PPD smoker. Trying to quit. ; Second Hand Exposure: No ; Tobacco Cessation Education Requested by Patient: Yes Hx Substance Use: No Review of Systems See HPI for pertinent positives & negatives. and A total of 10 systems reviewed and were otherwise negative Physical Exam Vital Signs Vital Signs - 24 hr 10/11/19 04:32 10/11/19 06:10 Temperature 36.6 C Temperature Source Oral Pulse Rate 95 H Pulse Rate [Finger] 83 Respiratory Rate 18 16 Respiratory Effort / Characteristics Non-Labored Respiratory Depth Normal Normal Blood Pressure 147/66 H Blood Pressure [Left Arm] 130/65 Blood Pressure Mean 93 Blood Pressure Mean [Left Arm] 86 Pulse Oximetry 95 94 Oxygen Delivery Method Nasal Cannula Nasal Cannula Oxygen Flow Rate 2.5 2.5 Sepsis Recent Fever Within 48 Hours No Sepsis Action Taken by Nursing No Action Required Vital signs reviewed. General: 84 year old somewhat frail-appearing female in significant discomfort. HEENT: No scleral icterus, PERRLA, neck supple. Atraumatic. Nasal cannula oxyge n in place. Cardiovascular: Regular rate and rhythm, no extra sounds. Pulmonary: Clear to auscultation bilaterally, normal work of breathing. Abdomen: Soft, nontender, nondistended, positive bowel sounds. Musculoskeletal: No peripheral edema. Tenderness to palpation over the left hip. Unable to fully straighten the leg. Neurovascularly intact distally. Neurologic: Patient awake alert and oriented x 3 Skin: Warm, dry, no rash Course Course 0525: Past medical records reviewed. The patient was evaluated in room B06. A complete history and physical examination was performed. 0610: Upon reevaluation, the patient is resting comfortably. I discussed laboratory and radiographic results with the patient's daughter. She verbalized agreement of the treatment plan. The patient will be evaluated for further management and care. 0612: I [facility] the [facility] will [facility] the patient for further management. 0625: I discussed the albertina's case with Dr. Hancock, Orthopedic Surgery. He is aware of the patient's case. Administered Medications Acetaminophen (Tylenol) 650 mg PO Q4H PRN PRN Reason: pain/fever Stop: 11/10/19 07:56 Last Admin: 10/12/19 11:07 Dose: 650 mg Documented by: [id number] Admin: 10/11/19 17:53 Dose: 650 mg Documented by: [id number] Hydrox/Mg Hydrox/Simethicone (Maalox Max) 30 ml PO Q6H PRN PRN Reason: Indigestion Stop: 11/11/19 20:03 Last Admin: 10/12/19 20:26 Dose: 30 ml Documented by: [id number] Albuterol (Duoneb) 3 ml INH Q6H PRN PRN Reason: Shortness Of Breath Or Wheezing Stop: 11/10/19 07:56 Last Admin: 10/12/19 23:05 Dose: 3 ml Documented by: [id number] Admin: 10/12/19 18:07 Dose: 3 ml Documented by: [id number] Admin: 10/12/19 08:27 Dose: 3 ml Documented by: [id number] Admin: 10/11/19 19:10 Dose: 3 ml Documented by: [id number] Amlodipine Besylate (Norvasc) 10 mg PO DAILY SHARITA Stop: 11/10/19 08:59 Last Admin: 10/12/19 08:16 Dose: 10 mg Documented by: [id number] Admin: 10/11/19 14:49 Dose: Not Given Documented by: [id number] Enalapril Maleate (Vasotec) 10 mg PO DAILY SHARITA Stop: 11/10/19 08:59 Last Admin: 10/12/19 08:16 Dose: 10 mg Documented by: [id number] Admin: 10/11/19 14:49 Dose: Not Given Documented by: [id number] Enoxaparin Sodium (Lovenox) 40 mg SQ QAM SHARITA Stop: 11/11/19 08:59 Last Admin: 10/12/19 08:16 Dose: 40 mg Documented by: [id number] Fluticasone Propionate (Flonase) 2 sprays NA DAILY SHARITA Stop: 11/10/19 08:59 Last Admin: 10/12/19 08:15 Dose: 2 sprays Documented by: [id number] Admin: 10/11/19 13:58 Dose: Not Given Documented by: [id number] Hydromorphone HCl (Dilaudid) 0.5 mg IV Q3H PRN PRN Reason: Pain Stop: 10/25/19 07:56 Last Admin: 10/11/19 09:17 Dose: 0.5 mg Documented by: [id number] Sodium Chloride (Nss 1000ml) 1,000 mls @ 80 mls/hr IV .[id number] SHARITA Stop: 11/10/19 08:59 Last Infusion: 10/12/19 22:00 Dose: 80 mls/hr Documented by: [id number] Admin: 10/12/19 20:29 Dose: 80 mls/hr Documented by: [id number] Infusion: 10/12/19 20:29 Dose: 80 mls/hr Documented by: [id number] Admin: 10/12/19 08:17 Dose: 80 mls/hr Documented by: [id number] Infusion: 10/12/19 08:17 Dose: 80 mls/hr Documented by: [id number] Admin: 10/11/19 21:20 Dose: 80 mls/hr Documented by: [id number] Infusion: 10/11/19 21:20 Dose: 0 mls/hr Documented by: [id number] Infusion: 10/11/19 10:40 Dose: 0 mls/hr Documented by: [id number] Admin: 10/11/19 09:15 Dose: 80 mls/hr Documented by: [id number] Multivitamins (Multivitamin Tab) 1 tab PO DAILY SHARITA Stop: 11/10/19 08:59 Last Admin: 10/12/19 08:16 Dose: 1 tab Documented by: [id number] Admin: 10/11/19 13:55 Dose: Not Given Documented by: [id number] Oxycodone HCl (Roxicodone Immediate Rel) 5 - 10 mg PO Q4H PRN PRN Reason: Pain Stop: 10/25/19 15:46 Last Admin: 10/13/19 01:05 Dose: 10 mg Documented by: [id number] Admin: 10/12/19 13:28 Dose: 10 mg Documented by: [id number] Admin: 10/12/19 08:14 Dose: 10 mg Documented by: [id number] Admin: 10/12/19 03:36 Dose: 10 mg Documented by: [id number] Admin: 10/11/19 22:42 Dose: 5 mg Documented by: [id number] Admin: 10/11/19 21:24 Dose: 5 mg Documented by: [id number] Simvastatin (Zocor) 20 mg PO QPM [facility] Stop: 11/10/19 20:59 Last Admin: 10/12/19 20:26 Dose: 20 mg Documented by: [id number] Admin: 10/11/19 21:17 Dose: 20 mg Documented by: [id number] Vitamin D (Vitamin D3) 1,000 units PO DAILY [facility] Stop: 11/10/19 08:59 Last Admin: 10/12/19 08:16 Dose: 1,000 units Documented by: [id number] Admin: 10/11/19 13:55 Dose: Not Given Documented by: [id number] Discontinued Medications Albuterol (Duoneb) 3 ml INH ONCE PRN PRN Reason: PACU Use Only-SOB/Wheezing Stop: 10/11/19 19:41 Last Admin: 10/11/19 14:48 Dose: 3 ml Documented by: [id number] Bacitracin (Bacitracin) Confirm Administered Dose 50,000 units .ROUTE .STK-MED ONE Stop: 10/11/19 10:08 Last Admin: 10/11/19 13:48 Dose: 50,000 units Documented by: [id number] Bupivacaine HCl (Marcaine 0.5% Mpf) Confirm Administered Dose 30 ml .ROUTE .STK- MED ONE Stop: 10/11/19 10:08 Last Admin: 10/11/19 13:49 Dose: Not Given Documented by: [id number] Bupivacaine HCl/Epinephrine Bitart (Sensorcaine/Epinephrine 0.5% Mpf 1:200,000) Confirm Administered Dose 60 ml .ROUTE .STK-MED ONE Stop: 10/11/19 11:04 Last Admin: 10/11/19 13:49 Dose: Not Given Documented by: [id number] Bupivacaine HCl/Epinephrine Bitart (Bupivacaine 0.25%-Epi 1:[id number]) Confirm Administered Dose 60 ml .ROUTE .STK-MED ONE Stop: 10/11/19 12:13 Last Admin: 10/11/19 13:50 Dose: 50 ml Documented by: [id number] Bupivacaine Liposome (Exparel) Confirm Administered Dose 266 mg .ROUTE .STK-MED ONE Stop: 10/11/19 12:13 Last Admin: 10/11/19 13:50 Dose: 266 mg Documented by: [id number] Fentanyl Citrate (Fentanyl Citrate) 25 mcg IV NOW STA Stop: 10/11/19 05:16 Last Admin: 10/11/19 05:21 Dose: 25 mcg Documented by: [id number] Fentanyl Citrate (Fentanyl Citrate) 25 mcg IV NOW ONE Stop: 10/11/19 05:39 Last Admin: 10/11/19 05:39 Dose: 25 mcg Documented by: [id number] Sodium Chloride (Nss 1000ml) 1,000 mls @ 75 mls/hr IV .[id number] [facility]ARITA Stop: 10/11/19 18:34 Last Infusion: 10/11/19 18:58 Dose: 0 mls/hr Documented by: [id number] Admin: 10/11/19 05:38 Dose: 75 mls/hr Documented by: [id number] Lorazepam (Ativan) 0.5 mg in 1 mls @ 1 mls/min IV NOW STA Stop: 10/11/19 05:28 Last Admin: 10/11/19 05:33 Dose: 1 mls/min Documented by: [id number] Sodium Chloride (Sodium Chloride 0.9% Pf) Confirm Administered Dose 50 ml .ROUTE .STK-MED ONE Stop: 10/11/19 12:13 Last Admin: 10/11/19 13:49 Dose: 30 ml Documented by: [id number] Sodium Chloride ([place] Nasal) Confirm Administered Dose 225 sprays .ROUTE .STK- MED ONE Stop: 10/11/19 18:53 Last Admin: 10/11/19 19:10 Dose: 225 sprays Documented by: [id number] Medical Decision Making Differential Diagnosis Differential diagnoses include major intracranial, cervical, spinal, thoracic, abdominal, pelvic and neurologic injury. Fracture, contusion, sprain, strain, laceration, abrasions included as well. Medical Records Attestation: I reviewed the patient's medical records. Home Medications Current Medication List: was personally reviewed by me Laboratory Data Attestation: I reviewed the patient's lab results. Result diagrams: 10/12/19 08:34 10/12/19 08:34 Lab Results 10/11/19 10/11/19 10/11/19 Range/Units 05:52 05:52 05:52 WBC 10.82 H (4.8-10.8) K/uL RBC 3.68 L (4.2-5.4) M/uL Hgb 10.7 L (12.0-16.0) g/dL Hct 32.6 L (37-47) % MCV 88.6 (80-100) fL MCH 29.1 (25-34) pg MCHC 32.8 (32-36) g/dL RDW Std Deviation 47.5 H (36.4-46.3) fL RDW Coeff of Gladis 14.6 H (11.5-14.5) % Plt Count 323 (130-400) K/uL MPV 9.5 (7.4-10.4) fL Immature Gran % (Auto) 0.3 % Neut % (Auto) 87.6 % Lymph % (Auto) 6.1 % [place] % (Auto) 5.1 % Eos % (Auto) 0.6 % Baso % (Auto) 0.3 % Immature Gran # (Auto) 0.03 H (0.00-0.02) K/uL Neut # (Auto) 9.49 H (1.4-6.5) K/uL Lymph # (Auto) 0.66 L (1.2-3.4) K/uL [place] # (Auto) 0.55 (0.11-0.59) K/uL Eos # (Auto) 0.06 (0-0.5) K/uL Baso # (Auto) 0.03 (0-0.2) K/uL PT 10.1 (9.0-12.0) Seconds INR 1.0 (0.9-1.1) APTT 24.4 (21.0-31.0) Seconds PTT Ratio 0.9 Sodium 133 L (136-145) mmol/L Potassium 4.1 (3.5-5.1) mmol/L Chloride 98 (98-107) mmol/L Carbon Dioxide 30 (21-32) mmol/L Anion Gap 5.0 (3-11) BUN 13 (7-18) mg/dl Creatinine 0.90 (0.6-1.2) mg/dl Est Cr Clr Drug Dosing 38.6 ml/min Est GFR ( Amer) 68.1 Est GFR (Non-Af Amer) 58.7 BUN/Creatinine Ratio 14.7 (10-20) Glucose 131 H (70-99) mg/dl Calcium 9.3 (8.5-10.1) mg/dl Total Bilirubin 0.6 (0.2-1) mg/dl AST 20 (15-37) U/L ALT 19 (12-78) U/L Alkaline Phosphatase 61 (45-117) U/L Total Protein 7.1 (6.4-8.2) gm/dl Albumin 3.5 (3.4-5.0) gm/dl Globulin 3.6 (2.5-4.0) gm/dl Albumin/Globulin Ratio 1.0 (0.9-2) Imaging Data Attestation: I personally reviewed and interpreted this imaging study as follows: My Impression: XR chest 1V portable: no focal lung consolidation. No pneumothorax. No failure. XR hip LT min 2V: Subcapital hip fracture on the left. ECG Data Attestation: I personally reviewed and interpreted this ECG as follows: Indication: + other (trauma) Rate (beats per minute): 92 Rhythm: + sinus rhythm ECG Intervals/blocks: + Normal QT ECG Findings: + LVH and + Other (Poor quality baseline, possible previous anterior infarct) Blood Pressure Blood Pressure Findings: Elevated blood pressure Blood Pressure Disposition: further management by hospitalist RUSLAN Preston This patient was evaluated and appeared to be in no significant distress. IV access was obtained and laboratory work was drawn. The patient was placed on the lathe set up operator and found to be in a sinus rhythm. Patient was medicated with IV fentanyl and Zofran with minimal improvement. She was subsequently given 0.5 mg of Ativan for muscle relaxation with significant improvement. X- rays were performed and reveals a left hip fracture. Chest x-ray was obtained and is clear. EKG reveals a sinus rhythm without acute ischemic change. Findings were discussed with the patient and her daughter. Consultation with Dr. Hancock of orthopedic surgery was placed. The patient will be evaluated by Dr. Cantu of the [facility] service for admission and further management. Impression & Plan Subcapital fracture of left hip Discharge Plan Visit Data *Final* Discharge Date/Time: 10/11/19 07:18 Chief Complaint: Fall Stated Complaint: Fall, Left Hip pain ED Provider: Alexandria Newton Discharge Problem: Subcapital fracture of left hip Patient Disposition: Admitted As Inpatient Discharge Instructions Interventions: ED Discharge Assessment Last Done: 10/11/19 07:18 Discharge Problem: Subcapital fracture of left hip Qualifiers: Encounter type: initial encounter Fracture type: closed Qualified Code(s): S72.012A - Unspecified intracapsular fracture of left femur, initial encounter for closed fracture The scribe's documentation has been prepared under my direction and personally reviewed by me in its entirety. I confirm that the note above accurately reflects all work, treatment, procedures, and medical decision making performed by me.
[2019-10-11] MEDS ORDERED: SODIUM CHLORIDE 0.65% NA SOLN 45 ML (OCEAN) ONE (18:52)
[2019-10-11] MEDS: ALBUT/IPRATROP 3MG/0.5MG NEB 3 ML VIAL INH PRN (19:10)
[2019-10-11] MEDS: SIMVASTATIN 20 MG TAB PO SCH (21:17)
[2019-10-11] MEDS: OXYCODONE HCL IR 5 MG TAB (IMMEDIATE RELEASE) PO PRN ×2 (21:24→22:42)
[2019-10-12] MEDS: OXYCODONE HCL IR 5 MG TAB (IMMEDIATE RELEASE) PO PRN ×3 (03:36→13:28)
[2019-10-12] MEDS: FLUTICASONE PROPIONATE NA SPR 16 GM BTL SCH (08:15)
[2019-10-12] MEDS: CHOLECALCIFEROL 1,000 UNITS TAB PO SCH (08:16)
[2019-10-12] MEDS: MULTIVITAMIN TAB PO SCH (08:16)
[2019-10-12] MEDS: ENALAPRIL MALEATE 10 MG TAB PO SCH (08:16)
[2019-10-12] MEDS: ENOXAPARIN INJ 40 MG/0.4 ML SYR SQ SCH (08:16)
[2019-10-12] MEDS: AMLODIPINE BESYLATE 5 MG TAB PO SCH (08:16)
[2019-10-12] MEDS: SODIUM CHLORIDE 0.9% 1000ML 1,000 ML IV SCH ×2 (08:17→20:29)
[2019-10-12] MEDS: ALBUT/IPRATROP 3MG/0.5MG NEB 3 ML VIAL INH PRN ×3 (08:27→23:05)
--- NOTE | 2019-10-12 08:47 | Anesthesiology Progress Note ---
Date of Service October 12, 2019 Anesthesia Post Procedure Vital Signs Vital Signs: Temp Pulse Pulse Pulse Resp BP BP 10/12/19 08:27 100 H 22 10/12/19 07:25 37.3 C 95 H 19 136/65 10/12/19 03:47 37 C 98 H 20 149/78 H 10/12/19 02:33 88 10/11/19 23:12 37.0 C 105 H 17 136/60 10/11/19 22:03 94 H 10/11/19 19:22 37.2 C 108 H 18 118/73 10/11/19 19:14 102 H 18 10/11/19 17:35 37.0 C 100 H 16 137/65 10/11/19 16:38 36.3 C L 98 H 16 126/64 10/11/19 16:06 37 C 90 16 129/66 10/11/19 15:39 37.0 C 95 H 16 145/71 H 10/11/19 15:30 93 H 14 10/11/19 15:26 92 H 14 140/63 10/11/19 15:25 91 H 14 10/11/19 15:21 93 H 16 141/72 H 10/11/19 15:20 92 H 14 10/11/19 15:16 91 H 14 140/73 10/11/19 15:15 37.6 C H 92 H 14 10/11/19 15:11 91 H 12 130/69 10/11/19 15:10 94 H 12 10/11/19 15:06 95 H 16 136/72 10/11/19 15:05 96 H 15 10/11/19 15:01 93 H 20 120/70 10/11/19 15:00 94 H 10 L 10/11/19 14:56 85 14 136/68 10/11/19 14:55 87 16 10/11/19 14:51 91 H 20 145/87 H 10/11/19 14:50 91 H 17 10/11/19 14:49 90 18 10/11/19 14:47 91 H 22 149/70 H 10/11/19 14:45 86 10 L 10/11/19 14:41 89 23 160/75 H 10/11/19 14:40 92 H 19 10/11/19 14:36 89 15 150/77 H 10/11/19 14:35 91 H 21 12/28/19 14:31 92 H 23 142/74 H 10/11/19 14:30 94 H 16 10/11/19 14:26 95 H 19 157/78 H 10/11/19 14:25 96 H 16 10/11/19 14:21 87 17 166/82 H 10/11/19 14:20 89 21 10/11/19 14:16 90 14 160/76 H 10/11/19 14:15 25 H 10/11/19 14:11 94 H 23 158/81 H 10/11/19 14:10 96 H 19 10/11/19 14:06 37.1 C 93 H 92 H 24 156/84 H 156/84 H Pulse Ox 10/12/19 08:27 94 10/12/19 07:25 100 10/12/19 03:47 93 10/12/19 02:33 95 10/11/19 23:12 93 10/11/19 22:03 93 10/11/19 19:22 94 10/11/19 19:14 94 10/11/19 17:35 97 10/11/19 16:38 91 10/11/19 16:06 96 10/11/19 15:39 95 10/11/19 15:30 94 10/11/19 15:26 95 10/11/19 15:25 95 10/11/19 15:21 95 10/11/19 15:20 93 10/11/19 15:16 92 10/11/19 15:15 92 10/11/19 15:11 90 10/11/19 15:10 92 10/11/19 15:06 92 10/11/19 15:05 92 10/11/19 15:01 88 L 10/11/19 15:00 88 L 10/11/19 14:56 99 10/11/19 14:55 99 10/11/19 14:51 99 10/11/19 14:50 99 10/11/19 14:49 97 10/11/19 14:47 97 10/11/19 14:45 97 10/11/19 14:41 97 10/11/19 14:40 92 10/11/19 14:36 89 L 10/11/19 14:35 86 L 10/11/19 14:31 88 L 10/11/19 14:30 90 12/28/19 14:26 90 10/11/19 14:25 90 10/11/19 14:21 92 10/11/19 14:20 93 10/11/19 14:16 93 10/11/19 14:15 89 L 10/11/19 14:11 88 L 10/11/19 14:10 95 10/11/19 14:06 94 Pain Intensity Left Hip: Pain Intensity: 6 Notes Mental Status: alert / awake / arousable and participated in evaluation Patient Amnestic to Procedure: Yes Nausea / Vomiting: adequately controlled Pain: adequately controlled Airway Patency, RR, SpO2: stable & adequate BP & HR: stable & adequate Hydration State: stable & adequate Neuraxial Anesthesia: was administered and sensory block resolved Anesthetic Complications: no major complications apparent and Pt Satisfied with anesthetic care
[2019-10-12 08:48] LABS: Hematocrit (blood only) 28.8 % (37-47); Hemoglobin 9.3 g/dL (12.0-16.0); Mean Corpuscular Hemoglobin 29.5 pg (25-34); Mean Corpuscular Hgb Conc 32.3 g/dL (32-36); Mean Corpuscular Volume 91.4 fL (80-100); Mean Platelet Volume 9.1 fL (7.4-10.4); Platelet Count 227 K/uL (130-400); RDW Standard Deviation 50.4 fL (36.4-46.3); Red Blood Count 3.15 M/uL (4.2-5.4); White Blood Count 7.65 K/uL (4.8-10.8)
[2019-10-12 09:03] LABS: BUN Creatinine Ratio 21.6 (10-20); Calcium 8.7 mg/dl (8.5-10.1); Creatinine Clr Calc Pharmacy 46.9 ml/min; Est GFR (African American) 84.8; Est GFR (Non-African American) 73.2; Potassium 4.4 mmol/L (3.5-5.1)
[2019-10-12 09:06] LABS: Basophils # (auto) 0.01 K/uL (0-0.2); Basophils % (auto) 0.1 %; Eosinophils # (auto) 0.01 K/uL (0-0.5); Eosinophils % (auto) 0.1 %; Immature Granulocytes # (auto) 0.01 K/uL (0.00-0.02); Immature Granulocytes % (auto) 0.1 %; Lymphocytes # (auto) 0.59 K/uL (1.2-3.4); Lymphocytes % (auto) 7.7 %; Monocytes % (auto) 10.5 %; Neutrophils # (auto) 6.23 K/uL (1.4-6.5); Neutrophils % (auto) 81.5 %
[2019-10-12] MEDS: ACETAMINOPHEN 325 MG TAB PO PRN (11:07)
--- NOTE | 2019-10-12 12:59 | Orthopedic Progress Note ---
Date of Service October 12, 2019 Assessment & Plan (1) Subcapital fracture of left hip: Making uncomplicated progress at postop day 1. Continue pain management per the primary team. Continue DVT prophylaxis. Continue PT/OT evaluations. Dressing can be changed on postop day 3, and then daily until the wound is dry for 24 hours. Disposition: Based on the PT/OT recommendations, she will likely need some inpatient next level of care. She lives at home alone and was previously independent ambulatory. After discharge, she can follow-up with orthopedics in 10 to 14 days after her surgery. She will need staple removal and repeat radiographs. Subjective Patient reports that she continues to have pain to the left hip, as expected. She was encouraged that she was able to get out of bed with physical therapy and get to the chair. She reports a good appetite. Family was at bedside including her daughter who is the power of communications station manager. They reported that she had some pain overnight and they were concerned. Review of Systems Review of Systems: All systems reviewed & are unremarkable except as noted in HPI & below Physical Exam Physical Exam: She was seated in the bedside chair. She is awake, alert and oriented. She is cooperative on exam. She is very conversant. Left hip: Dressing was clean dry and intact. Leg lengths appear to be equal on inspection. She is distally neurovascular intact with positive dorsiflexion/plantarflexion/EHL activity. She has 2+ DP/PT pulses Results & Data Vital Signs (Past 12 Hours) Vital Signs Temp Pulse Resp BP Pulse Ox 10/12/19 08:27 100 H 22 94 10/12/19 07:25 37.3 C 95 H 19 136/65 100 10/12/19 03:47 37 C 98 H 20 149/78 H 93 10/12/19 02:33 88 95 Radiographs: Suboptimal position limits the utility of this radiograph. The implant is reduced and there appear to be no obvious complications. PG Care Time/CCT Total # of Minutes Spent Total Time Spent with Patient: Total time spent is greater than 50% in coordination of care (as documented) at patient's floor/unit and/or counseling patient: (1) Subcapital fracture of left hip Encounter type: initial encounter Fracture type: closed Qualified Code(s): S72.012A - Unspecified intracapsular fracture of left femur, initial encounter for closed fracture
--- NOTE | 2019-10-12 13:21 | Hospitalist Progress Note ---
Date of Service October 12, 2019 Assessment & Plan (1) Subcapital fracture of left hip: Status post mechanical fall with left hip fracture Status post left hip bipolar hemiarthroplasty on 10/11 Appreciate Ortho input and recommendation Minimal pain at the left hip Management as per Ortho (2) COPD, moderate: No shortness of breath and/or wheezing at rest We will continue current medications (3) HTN (hypertension): Blood pressure seems to be under control Continue current meds (4) High cholesterol: Continue current meds Subjective 10/12 The patient was seen and examined in the medical floor in presence of the daughter She is a status post left bipolar hip hemiarthroplasty on 10/11 Complains today of some pain at the joint but denies any other symptoms Review of Systems Review of Systems: All systems reviewed and are unremarkable except as noted below Musculoskeletal: Pain in the left hip on movement Physical Exam Physical Exam: Lying in bed comfortably Constitutional: well developed and well nourished; no acute distress Eyes: PERRL, conjunctivae normal, anicteric sclerae ENMT: external ear and nose normal, oropharynx normal Neck: trachea midline, no thyromegaly Respiratory: normal respiratory effort Auscultation: lungs clear to auscultation bilaterally and + diminished lung sounds Cardiovascular: Rate/Rhythm: regular rate and regular rhythm Heart Sounds: no murmur Gastrointestinal (Abdomen): Inspection/Auscultation: abdomen normal to inspection and normal bowel sounds Musculoskeletal: Left hip area is bandaged,status post surgery Neurologic: Alert, awake and oriented x3 Results & Data Vital Signs (Past 12 Hours) Vital Signs Temp Pulse Resp BP Pulse Ox 10/12/19 08:27 100 H 22 94 10/12/19 07:25 37.3 C 95 H 19 136/65 100 10/12/19 03:47 37 C 98 H 20 149/78 H 93 10/12/19 02:33 88 95 Laboratory Results Short CBC 10/12/19 Range/Units 08:34 WBC 7.65 (4.8-10.8) K/uL Hgb 9.3 L (12.0-16.0) g/dL Hct 28.8 L (37-47) % Plt Count 227 (130-400) K/uL BMP 10/12/19 08:34 Sodium 135 L Potassium 4.4 Chloride 100 Carbon Dioxide 30 BUN 16 Creatinine 0.75 Glucose 103 H Calcium 8.7 Medications Administered Current Inpatient Medications Acetaminophen (Tylenol) 650 mg PO Q4H PRN PRN Reason: pain/fever Stop: 11/10/19 07:56 Last Admin: 10/12/19 11:07 Dose: 650 mg Documented by: Albuterol (Duoneb) 3 ml INH Q6H PRN PRN Reason: Shortness Of Breath Or Wheezing Stop: 11/10/19 07:56 Last Admin: 10/12/19 08:27 Dose: 3 ml Documented by: Amlodipine Besylate (Norvasc) 10 mg PO DAILY [facility] Stop: 11/10/19 08:59 Last Admin: 10/12/19 08:16 Dose: 10 mg Documented by: Enalapril Maleate (Vasotec) 10 mg PO DAILY [facility] Stop: 11/10/19 08:59 Last Admin: 10/12/19 08:16 Dose: 10 mg Documented by: Enoxaparin Sodium (Lovenox) 40 mg SQ QAM [facility] Stop: 11/11/19 08:59 Last Admin: 10/12/19 08:16 Dose: 40 mg Documented by: Fluticasone Propionate (Flonase) 2 sprays NA DAILY [facility] Stop: 11/10/19 08:59 Last Admin: 10/12/19 08:15 Dose: 2 sprays Documented by: Hydromorphone HCl (Dilaudid) 0.5 mg IV Q3H PRN PRN Reason: Pain Stop: 10/25/19 07:56 Last Admin: 10/11/19 09:17 Dose: 0.5 mg Documented by: Sodium Chloride (Nss 1000ml) 1,000 mls @ 80 mls/hr IV .[id number] [facility] Stop: 11/10/19 08:59 Last Admin: 10/12/19 08:17 Dose: 80 mls/hr Documented by: Multivitamins (Multivitamin Tab) 1 tab PO DAILY [facility] Stop: 11/10/19 08:59 Last Admin: 10/12/19 08:16 Dose: 1 tab Documented by: Naloxone HCl (Narcan) 0.1 mg IV UD PRN PRN Reason: Opioid Overdose Stop: 11/10/19 15:46 Ondansetron HCl (Zofran) 4 mg IV Q6H PRN PRN Reason: Nausea Stop: 11/10/19 07:56 Oxycodone HCl (Roxicodone Immediate Rel) 5 - 10 mg PO Q4H PRN PRN Reason: Pain Stop: 10/25/19 15:46 Last Admin: 10/12/19 08:14 Dose: 10 mg Documented by: Polyethylene Glycol (Miralax Powder Packet) 17 gm PO DAILY PRN PRN Reason: Constipation Stop: 11/10/19 07:56 Simvastatin (Zocor) 20 mg PO QPM [facility] Stop: 11/10/19 20:59 Last Admin: 10/11/19 21:17 Dose: 20 mg Documented by: Vitamin D (Vitamin D3) 1,000 units PO DAILY [facility] Stop: 11/10/19 08:59 Last Admin: 10/12/19 08:16 Dose: 1,000 units Documented by: (1) Subcapital fracture of left hip Encounter type: initial encounter Fracture type: closed Qualified Code(s): S72.012A - Unspecified intracapsular fracture of left femur, initial encounter for closed fracture
[2019-10-12] MEDS: SIMVASTATIN 20 MG TAB PO SCH (20:26)
[2019-10-12] MEDS: ALUMINUM/MAGNESIUM/SIMETH (MAALOX MAX) 30 ML UDC PO PRN (20:26)
[2019-10-13] MEDS: OXYCODONE HCL IR 5 MG TAB (IMMEDIATE RELEASE) PO PRN ×3 (01:05→17:08)
--- NOTE | 2019-10-13 07:17 | Orthopedic Progress Note ---
Date of Service October 13, 2019 Assessment & Plan (1) Subcapital fracture of left hip: Making uncomplicated progress at postop day 2. Continue pain management per the primary team. Continue DVT prophylaxis. Continue PT/OT evaluations. Dressing can be changed daily until the wound is dry for 24 hours. Disposition: Based on the PT/OT recommendations, she will likely need some inpatient next level of care. She lives at home alone and was previously independent ambulatory. After discharge, she can follow-up with orthopedics in 10 to 14 days after her surgery. She will need staple removal and repeat radiographs. Subjective She reports continued pain and difficulty with ambulation, as expected. Pain is located in her groin and the left hip. No other issues. She is eating well. Review of Systems Review of Systems: All systems reviewed & are unremarkable except as noted in HPI & below Physical Exam Physical Exam: She was sleeping upon arrival but wakes easily.. She is cooperative on exam. She is very conversant and pleasant. Left hip: Dressing was removed and the wound was exposed upon arrival. The wound is well approximated without erythema or drainage. There is mild ecchymosis, as expected.. Leg lengths appear to be equal on inspection. She is distally neurovascular intact with positive dorsiflexion/plantarflexion/EHL activity. She has 2+ DP/PT pulses Results & Data Vital Signs (Past 12 Hours) Vital Signs Temp Pulse Resp BP Pulse Ox 10/12/19 23:11 37.3 C 109 H 18 125/80 97 10/12/19 23:05 107 H 22 70 L PG Care Time/CCT Total # of Minutes Spent Total Time Spent with Patient: Total time spent is greater than 50% in coordination of care (as documented) at patient's floor/unit and/or counseling patient: (1) Subcapital fracture of left hip Encounter type: initial encounter Fracture type: closed Qualified Code(s): S72.012A - Unspecified intracapsular fracture of left femur, initial encounter for closed fracture
[2019-10-13] MEDS: ALBUT/IPRATROP 3MG/0.5MG NEB 3 ML VIAL INH PRN ×2 (07:39→13:20)
[2019-10-13 08:04] LABS: Basophils # (auto) 0.01 K/uL (0-0.2); Basophils % (auto) 0.1 %; Hematocrit (blood only) 24.8 % (37-47); Hemoglobin 8.2 g/dL (12.0-16.0); Immature Granulocytes # (auto) 0.02 K/uL (0.00-0.02); Immature Granulocytes % (auto) 0.2 %; Lymphocytes # (auto) 0.96 K/uL (1.2-3.4); Lymphocytes % (auto) 9.3 %; Mean Corpuscular Hgb Conc 33.1 g/dL (32-36); Mean Corpuscular Volume 90.8 fL (80-100); Mean Platelet Volume 9.6 fL (7.4-10.4); Monocytes # (auto) 0.97 K/uL (0.11-0.59); Monocytes % (auto) 9.4 %; Neutrophils # (auto) 8.37 K/uL (1.4-6.5); Platelet Count 223 K/uL (130-400); RDW Coefficient of Variation 14.8 % (11.5-14.5); RDW Standard Deviation 49.2 fL (36.4-46.3); Red Blood Count 2.73 M/uL (4.2-5.4); White Blood Count 10.33 K/uL (4.8-10.8)
[2019-10-13 08:30] LABS: BUN Creatinine Ratio 26.5 (10-20); Creatinine Clr Calc Pharmacy 43.4 ml/min; Est GFR (African American) 77.3; Est GFR (Non-African American) 66.7; Potassium 4.5 mmol/L (3.5-5.1)
[2019-10-13] MEDS: HYDROmorphone INJ 0.5 MG/0.5 ML SYR IV PRN (08:39)
[2019-10-13] MEDS: SODIUM CHLORIDE 0.9% 1000ML 1,000 ML IV SCH ×2 (08:40→20:37)
[2019-10-13] MEDS: FLUTICASONE PROPIONATE NA SPR 16 GM BTL SCH (09:41)
[2019-10-13] MEDS: ENALAPRIL MALEATE 10 MG TAB PO SCH (09:42)
[2019-10-13] MEDS: CHOLECALCIFEROL 1,000 UNITS TAB PO SCH (09:42)
[2019-10-13] MEDS: ENOXAPARIN INJ 40 MG/0.4 ML SYR SQ SCH (09:42)
[2019-10-13] MEDS: ACETAMINOPHEN 325 MG TAB PO PRN ×3 (09:42→19:46)
[2019-10-13] MEDS: MULTIVITAMIN TAB PO SCH (09:42)
[2019-10-13] MEDS: AMLODIPINE BESYLATE 5 MG TAB PO SCH (09:42)
[2019-10-13] MEDS ORDERED: bisacodyL 5 MG TABEC PO ONE ×2 (13:46)
--- NOTE | 2019-10-13 16:23 | Hospitalist Progress Note ---
Date of Service October 13, 2019 Assessment & Plan (1) Subcapital fracture of left hip: Status post mechanical fall with left hip fracture Status post left hip bipolar hemiarthroplasty on 10/11 Appreciate Ortho input and recommendation Minimal pain at the left hip Management as per Ortho Clinically much better, tolerating physical therapy Ready to be discharged when accepted to rehab (2) COPD, moderate: No shortness of breath and/or wheezing at rest We will continue current medications Denies any acute symptoms (3) HTN (hypertension): Blood pressure seems to be under control Continue current meds Blood pressure is controlled (4) High cholesterol: Continue current meds Subjective 10/12 The patient was seen and examined in the medical floor in presence of the daughter She is a status post left bipolar hip hemiarthroplasty on 10/11 Complains today of some pain at the joint but denies any other symptoms 10/13 The patient was seen and examined in medical floor She has been feeling a lot better Her pain is well controlled She is ready to be out of the hospital Review of Systems Review of Systems: All systems reviewed and are unremarkable except as noted below Musculoskeletal: Pain in the left hip on movement Physical Exam Physical Exam: No apparent distress at rest Constitutional: well developed and well nourished; no acute distress Eyes: PERRL, conjunctivae normal, anicteric sclerae ENMT: external ear and nose normal, oropharynx normal Neck: trachea midline, no thyromegaly Respiratory: normal respiratory effort Auscultation: lungs clear to auscultation bilaterally and + diminished lung sounds Cardiovascular: Rate/Rhythm: regular rate and regular rhythm Heart Sounds: no murmur Gastrointestinal (Abdomen): Inspection/Auscultation: abdomen normal to inspection and normal bowel sounds Musculoskeletal: Pain with movement of the left lower extremity Skin: no rashes, warm and dry Neurologic: Alert, awake and oriented x3 Lymphatic: no cervical or axillary lymphadenopathy Results & Data Vital Signs (Past 12 Hours) Vital Signs Temp Pulse Resp BP Pulse Ox 10/13/19 15:41 36.5 C 93 H 18 112/56 L 91 10/13/19 13:23 90 20 90 10/13/19 07:39 85 20 95 10/13/19 07:18 37.1 C 98 H 20 101/44 L 93 Laboratory Results Short CBC 10/13/19 Range/Units 07:39 WBC 10.33 (4.8-10.8) K/uL Hgb 8.2 L (12.0-16.0) g/dL Hct 24.8 L (37-47) % Plt Count 223 (130-400) K/uL [facility] 10/13/19 07:39 Sodium 132 L Potassium 4.5 Chloride 99 Carbon Dioxide 29 BUN 22 H Creatinine 0.81 Glucose 106 H Calcium 9.0 Medications Administered Current Inpatient Medications Acetaminophen (Tylenol) 650 mg PO Q4H PRN PRN Reason: pain/fever Stop: 11/10/19 07:56 Last Admin: 10/13/19 13:36 Dose: 650 mg Documented by: Al Hydrox/Mg Hydrox/Simethicone (Maalox Max) 30 ml PO Q6H PRN PRN Reason: Indigestion Stop: 11/11/19 20:03 Last Admin: 10/12/19 20:26 Dose: 30 ml Documented by: Albuterol (Duoneb) 3 ml INH Q6H PRN PRN Reason: Shortness Of Breath Or Wheezing Stop: 11/10/19 07:56 Last Admin: 10/13/19 13:20 Dose: 3 ml Documented by: Amlodipine Besylate (Norvasc) 10 mg PO DAILY [facility] Stop: 11/10/19 08:59 Last Admin: 10/13/19 09:42 Dose: 10 mg Documented by: Enalapril Maleate (Vasotec) 10 mg PO DAILY [facility] Stop: 11/10/19 08:59 Last Admin: 10/13/19 09:42 Dose: 10 mg Documented by: Enoxaparin Sodium (Lovenox) 40 mg SQ QAM [facility] Stop: 11/11/19 08:59 Last Admin: 10/13/19 09:42 Dose: 40 mg Documented by: Fluticasone Propionate (Flonase) 2 sprays NA DAILY [facility] Stop: 11/10/19 08:59 Last Admin: 10/13/19 09:41 Dose: 2 sprays Documented by: Hydromorphone HCl (Dilaudid) 0.5 mg IV Q3H PRN PRN Reason: Pain Stop: 10/25/19 07:56 Last Admin: 10/13/19 08:39 Dose: 0.5 mg Documented by: Sodium Chloride (Nss 1000ml) 1,000 mls @ 80 mls/hr IV .[id number] [facility] Stop: 11/10/19 08:59 Last Admin: 10/13/19 08:40 Dose: 80 mls/hr Documented by: Multivitamins (Multivitamin Tab) 1 tab PO DAILY [facility] Stop: 11/10/19 08:59 Last Admin: 10/13/19 09:42 Dose: 1 tab Documented by: Naloxone HCl (Narcan) 0.1 mg IV UD PRN PRN Reason: Opioid Overdose Stop: 11/10/19 15:46 Ondansetron HCl (Zofran) 4 mg IV Q6H PRN PRN Reason: Nausea Stop: 11/10/19 07:56 Oxycodone HCl (Roxicodone Immediate Rel) 5 - 10 mg PO Q4H PRN PRN Reason: Pain Stop: 10/25/19 15:46 Last Admin: 10/13/19 07:31 Dose: 10 mg Documented by: Polyethylene Glycol (Miralax Powder Packet) 17 gm PO DAILY PRN PRN Reason: Constipation Stop: 11/10/19 07:56 Simvastatin (Zocor) 20 mg PO QPM [facility] Stop: 11/10/19 20:59 Last Admin: 10/12/19 20:26 Dose: 20 mg Documented by: Vitamin D (Vitamin D3) 1,000 units PO DAILY [facility] Stop: 11/10/19 08:59 Last Admin: 10/13/19 09:42 Dose: 1,000 units Documented by: (1) Subcapital fracture of left hip Encounter type: initial encounter Fracture type: closed Qualified Code(s): S72.012A - Unspecified intracapsular fracture of left femur, initial encounter for closed fracture
[2019-10-13] MEDS: SIMVASTATIN 20 MG TAB PO SCH (20:35)
[2019-10-14] MEDS: OXYCODONE HCL IR 5 MG TAB (IMMEDIATE RELEASE) PO PRN ×5 (02:08→22:55)
[2019-10-14 07:22] LABS: Basophils # (auto) 0.01 K/uL (0-0.2); Basophils % (auto) 0.1 %; Eosinophils % (auto) 1.1 %; Hematocrit (blood only) 25.6 % (37-47); Hemoglobin 8.6 g/dL (12.0-16.0); Immature Granulocytes # (auto) 0.02 K/uL (0.00-0.02); Immature Granulocytes % (auto) 0.2 %; Lymphocytes # (auto) 0.69 K/uL (1.2-3.4); Lymphocytes % (auto) 7.4 %; Mean Corpuscular Hemoglobin 30.5 pg (25-34); Mean Corpuscular Hgb Conc 33.6 g/dL (32-36); Mean Corpuscular Volume 90.8 fL (80-100); Mean Platelet Volume 9.3 fL (7.4-10.4); Monocytes % (auto) 7.5 %; Neutrophils # (auto) 7.79 K/uL (1.4-6.5); Neutrophils % (auto) 83.7 %; Platelet Count 222 K/uL (130-400); RDW Coefficient of Variation 14.9 % (11.5-14.5); RDW Standard Deviation 49.7 fL (36.4-46.3); Red Blood Count 2.82 M/uL (4.2-5.4); White Blood Count 9.31 K/uL (4.8-10.8)
[2019-10-14] MEDS: ALBUT/IPRATROP 3MG/0.5MG NEB 3 ML VIAL INH PRN ×2 (07:50→13:10)
[2019-10-14] MEDS: FLUTICASONE PROPIONATE NA SPR 16 GM BTL SCH (08:24)
[2019-10-14] MEDS: AMLODIPINE BESYLATE 5 MG TAB PO SCH (08:36)
[2019-10-14] MEDS: CHOLECALCIFEROL 1,000 UNITS TAB PO SCH (08:37)
[2019-10-14] MEDS: MULTIVITAMIN TAB PO SCH (08:37)
[2019-10-14] MEDS: ENOXAPARIN INJ 40 MG/0.4 ML SYR SQ SCH (08:37)
[2019-10-14] MEDS: ENALAPRIL MALEATE 10 MG TAB PO SCH (08:38)
--- NOTE | 2019-10-14 09:15 | Orthopedic Progress Note ---
Date of Service October 14, 2019 Assessment & Plan (1) Subcapital fracture of left hip: Making uncomplicated progress at postop day 3. Continue pain management per the primary team. Continue DVT prophylaxis. Continue PT/OT evaluations. Dressing can be changed daily until the wound is dry for 24 hours. Disposition: Based on the PT/OT recommendations, she will likely need some inpatient next level of care. She lives at home alone and was previously independent ambulatory. After discharge, she can follow-up with orthopedics in 10 to 14 days after her surgery. She will need staple removal and repeat radiographs. Supervising Physician Co-Signing Physician Notes Patient seen and examined by myself. Please keep the wound covered and change the dressing daily. Agree with the above note by PATRICIA Prabhakar for transition to inpatient rehabilitation when possible. Valencia Howell complains of constipation today. Reports that she had it even before her surgery. She was recently given prune juice to hopefully relieve this. She is otherwise symptom free and denies hip pain at rest. States that she has gotten up and ambulated the previous two days. She is hoping to go to a rehab facility once an open room is available. She denies fevers, chills, and sweats. Review of Systems Review of Systems: All systems reviewed & are unremarkable except as noted in HPI & below Physical Exam Physical Exam: She was sitting upright in her bed in mild discomfort from constipation, with her daughter accompanying her. She is cooperative on exam. She is very conversant and pleasant. Left hip: Dressing was removed and the wound was exposed upon arrival. The wound is well approximated. The incision site is clean, dry, and intact without erythema or drainage. There is mild ecchymosis, as expected. Leg lengths appear to be equal on inspection. She is distally neurovascular intact with positive dorsiflexion/plantarflexion/EHL activity. She has 2+ DP/PT pulses Results & Data Vital Signs (Past 12 Hours) Vital Signs Temp Pulse Resp BP Pulse Ox 10/14/19 07:37 92 10/14/19 07:09 36.5 C 99 H 20 120/58 L 10/13/19 23:54 36.4 C L 91 H 14 122/58 L 97 PG Care Time/CCT Total # of Minutes Spent Total Time Spent with Patient: Total time spent is greater than 50% in coordination of care (as documented) at patient's floor/unit and/or counseling patient: (1) Subcapital fracture of left hip Encounter type: initial encounter Fracture type: closed Qualified Code(s): S72.012A - Unspecified intracapsular fracture of left femur, initial encounter for closed fracture
[2019-10-14] MEDS ORDERED: bisacodyL 10 MG SUPP PR STA (10:30)
[2019-10-14] MEDS ORDERED: SOD PHOSPHATE/SOD BIPHOSPHATE ENEMA 132 ML BTL PR PRN (10:45)
[2019-10-14] MEDS ORDERED: FUROSEMIDE 40 MG in SYRINGE 0 ML IV ONE (11:00)
[2019-10-14] MEDS: SODIUM CHLORIDE 0.9% 1000ML 1,000 ML IV SCH ×2 (11:33→22:56)
--- NOTE | 2019-10-14 14:01 | Hospitalist Progress Note ---
Date of Service October 14, 2019 Assessment & Plan (1) Subcapital fracture of left hip: Status post mechanical fall with left hip fracture Status post left hip bipolar hemiarthroplasty on 10/11 Appreciate Ortho input and recommendation Minimal pain at the left hip Management as per Ortho Clinically much better, tolerating physical therapy Ready to be discharged when accepted to rehab Not yet accepted to rehab (2) COPD, moderate: No shortness of breath and/or wheezing at rest We will continue current medications Denies any acute symptoms Complains a little short of breath today Likely has minimal bibasilar crackles Will try 1 dose of intravenous Lasix today (3) HTN (hypertension): Blood pressure seems to be under control Continue current meds Blood pressure is controlled (4) High cholesterol: Continue current meds Has not been accepted yet to rehab Likely to go in a day or 2 Subjective 10/12 The patient was seen and examined in the medical floor in presence of the daughter She is a status post left bipolar hip hemiarthroplasty on 10/11 Complains today of some pain at the joint but denies any other symptoms 10/13 The patient was seen and examined in medical floor She has been feeling a lot better Her pain is well controlled She is ready to be out of the hospital 10/14 The patient was seen and examined in medical floor She complains of constipation with some abdominal discomfort today Feels a little more short of breath today Pain seems to be under control Review of Systems Review of Systems: All systems reviewed and are unremarkable except as noted below Musculoskeletal: Pain in the left hip on movement Physical Exam Physical Exam: Lying in bed with minimal discomfort Constitutional: well developed and well nourished; no acute distress Eyes: PERRL, conjunctivae normal, anicteric sclerae ENMT: external ear and nose normal, oropharynx normal Neck: trachea midline, no thyromegaly Respiratory: normal respiratory effort Auscultation: + diminished lung sounds and + crackles (Occasional crackles at the bases) Cardiovascular: Rate/Rhythm: regular rate and regular rhythm Heart Sounds: no murmur Gastrointestinal (Abdomen): Inspection/Auscultation: abdomen normal to inspection and normal bowel sounds Skin: no rashes, warm and dry Lymphatic: no cervical or axillary lymphadenopathy Results & Data Vital Signs (Past 12 Hours) Vital Signs Temp Pulse Resp BP Pulse Ox 10/14/19 13:10 114 H 18 96 10/14/19 07:50 102 H 18 90 10/14/19 07:37 92 10/14/19 07:09 36.5 C 99 H 20 120/58 L Laboratory Results Short CBC 10/14/19 Range/Units 06:58 WBC 9.31 (4.8-10.8) K/uL Hgb 8.6 L (12.0-16.0) g/dL Hct 25.6 L (37-47) % Plt Count 222 (130-400) K/uL Medications Administered Current Inpatient Medications Acetaminophen (Tylenol) 650 mg PO Q4H PRN PRN Reason: pain/fever Stop: 11/10/19 07:56 Last Admin: 10/13/19 19:46 Dose: 650 mg Documented by: Al Hydrox/Mg Hydrox/Simethicone (Maalox Max) 30 ml PO Q6H PRN PRN Reason: Indigestion Stop: 11/11/19 20:03 Last Admin: 10/12/19 20:26 Dose: 30 ml Documented by: Albuterol (Duoneb) 3 ml INH Q6H PRN PRN Reason: Shortness Of Breath Or Wheezing Stop: 11/10/19 07:56 Last Admin: 10/14/19 13:10 Dose: 3 ml Documented by: Amlodipine Besylate (Norvasc) 10 mg PO DAILY [facility] Stop: 11/10/19 08:59 Last Admin: 10/14/19 08:36 Dose: 10 mg Documented by: Enalapril Maleate (Vasotec) 10 mg PO DAILY [facility] Stop: 11/10/19 08:59 Last Admin: 10/14/19 08:38 Dose: 10 mg Documented by: Enoxaparin Sodium (Lovenox) 40 mg SQ QAM [facility] Stop: 11/11/19 08:59 Last Admin: 10/14/19 08:37 Dose: 40 mg Documented by: Fluticasone Propionate (Flonase) 2 sprays NA DAILY [facility] Stop: 11/10/19 08:59 Last Admin: 10/14/19 08:24 Dose: 2 sprays Documented by: Hydromorphone HCl (Dilaudid) 0.5 mg IV Q3H PRN PRN Reason: Pain Stop: 10/25/19 07:56 Last Admin: 10/13/19 08:39 Dose: 0.5 mg Documented by: Sodium Chloride (Nss 1000ml) 1,000 mls @ 80 mls/hr IV .[id number] [facility] Stop: 11/10/19 08:59 Last Admin: 10/14/19 11:33 Dose: 80 mls/hr Documented by: Multivitamins (Multivitamin Tab) 1 tab PO DAILY [facility] Stop: 11/10/19 08:59 Last Admin: 10/14/19 08:37 Dose: 1 tab Documented by: Naloxone HCl (Narcan) 0.1 mg IV UD PRN PRN Reason: Opioid Overdose Stop: 11/10/19 15:46 Ondansetron HCl (Zofran) 4 mg IV Q6H PRN PRN Reason: Nausea Stop: 11/10/19 07:56 Oxycodone HCl (Roxicodone Immediate Rel) 5 - 10 mg PO Q4H PRN PRN Reason: Pain Stop: 10/25/19 15:46 Last Admin: 10/14/19 11:32 Dose: 5 mg Documented by: Polyethylene Glycol (Miralax Powder Packet) 17 gm PO DAILY PRN PRN Reason: Constipation Stop: 11/10/19 07:56 Last Admin: 10/14/19 08:37 Dose: 17 gm Documented by: Simvastatin (Zocor) 20 mg PO QPM [facility] Stop: 11/10/19 20:59 Last Admin: 10/13/19 20:35 Dose: 20 mg Documented by: Sodium Biphosphate/Sodium Phosphate (Fleet Enema) 132 ml [place] 1200 PRN PRN Reason: CONSTIPATION Stop: 10/14/19 23:59 Vitamin D (Vitamin D3) 1,000 units PO DAILY [facility] Stop: 11/10/19 08:59 Last Admin: 10/14/19 08:37 Dose: 1,000 units Documented by: (1) Subcapital fracture of left hip Encounter type: initial encounter Fracture type: closed Qualified Code(s): S72.012A - Unspecified intracapsular fracture of left femur, initial encounter for closed fracture
[2019-10-14] MEDS ORDERED: bisacodyL 10 MG SUPP PR ONE (15:22)
[2019-10-14] MEDS: SIMVASTATIN 20 MG TAB PO SCH (20:20)
[2019-10-15] MEDS: ALBUT/IPRATROP 3MG/0.5MG NEB 3 ML VIAL INH PRN (07:01)
[2019-10-15] MEDS: OXYCODONE HCL IR 5 MG TAB (IMMEDIATE RELEASE) PO PRN ×3 (07:29→15:51)
[2019-10-15] MEDS: FLUTICASONE PROPIONATE NA SPR 16 GM BTL SCH (07:37)
[2019-10-15 08:03] LABS: Basophils # (auto) 0.02 K/uL (0-0.2); Basophils % (auto) 0.2 %; Eosinophils # (auto) 0.11 K/uL (0-0.5); Eosinophils % (auto) 1.2 %; Hematocrit (blood only) 27.1 % (37-47); Hemoglobin 8.9 g/dL (12.0-16.0); Immature Granulocytes # (auto) 0.03 K/uL (0.00-0.02); Immature Granulocytes % (auto) 0.3 %; Lymphocytes % (auto) 11.9 %; Mean Corpuscular Hemoglobin 29.3 pg (25-34); Mean Corpuscular Hgb Conc 32.8 g/dL (32-36); Mean Corpuscular Volume 89.1 fL (80-100); Mean Platelet Volume 9.3 fL (7.4-10.4); Monocytes # (auto) 0.89 K/uL (0.11-0.59); Monocytes % (auto) 9.6 %; Neutrophils # (auto) 7.09 K/uL (1.4-6.5); Neutrophils % (auto) 76.8 %; Platelet Count 269 K/uL (130-400); RDW Coefficient of Variation 14.9 % (11.5-14.5); RDW Standard Deviation 49.2 fL (36.4-46.3); Red Blood Count 3.04 M/uL (4.2-5.4); White Blood Count 9.24 K/uL (4.8-10.8)
[2019-10-15] MEDS: CHOLECALCIFEROL 1,000 UNITS TAB PO SCH (09:08)
[2019-10-15] MEDS: MULTIVITAMIN TAB PO SCH (09:08)
[2019-10-15] MEDS: ENOXAPARIN INJ 40 MG/0.4 ML SYR SQ SCH (09:08)
[2019-10-15] MEDS: AMLODIPINE BESYLATE 5 MG TAB PO SCH (09:08)
[2019-10-15] MEDS: ENALAPRIL MALEATE 10 MG TAB PO SCH (09:08)
--- NOTE | 2019-10-15 09:47 | Orthopedic Progress Note ---
Date of Service October 15, 2019 Assessment & Plan (1) Subcapital fracture of left hip: Making uncomplicated progress at postop day 4 -continue plan of care and await for transfer to [facility]. Continue pain management per the primary team. Continue DVT prophylaxis. Continue PT/OT evaluations. Dressing can be changed daily until the wound is dry for 24 hours. Disposition: After discharge, she can follow-up with orthopedics in 10 to 14 days after her surgery. She will need staple removal and repeat radiographs. Subjective Accompanied by her daughter today. They report that she is doing quite well. She states that she is ready to transition to [facility]. They are waiting for a bed. She says the pain is in and out. She thinks she is generally improved. Her daughter has no concerns today. Physical Exam Physical Exam: She was sleeping upon arrival but wakes easily.. She is cooperative on exam. She is very conversant and pleasant. Left hip: Dressing clean dry and intact. There is a minimal amount of spotting centrally. Leg lengths appear to be equal on inspection. She is distally neurovascular intact with positive dorsiflexion/plantarflexion/EHL activity. She has 2+ DP/PT pulses Constitutional: WD/WN, vitals as above well nourished and + well hydrated; no acute distress Results & Data Vital Signs (Past 12 Hours) Vital Signs Temp Pulse Pulse Resp BP Pulse Ox 10/15/19 07:03 101 H 22 90 10/15/19 06:49 36.8 C 100 H 17 141/70 H 87 L 10/14/19 23:35 95 H 14 91 10/14/19 23:15 37 C 104 H 18 126/63 88 L PG Care Time/CCT Total # of Minutes Spent Total Time Spent with Patient: Total time spent is greater than 50% in coordination of care (as documented) at patient's floor/unit and/or counseling patient: (1) Subcapital fracture of left hip Encounter type: initial encounter Fracture type: closed Qualified Code(s): S72.012A - Unspecified intracapsular fracture of left femur, initial encounter for closed fracture
--- NOTE | 2019-10-15 11:14 | Hospitalist Progress Note ---
Date of Service October 15, 2019 Assessment & Plan (1) Subcapital fracture of left hip: (1) Subcapital fracture of left hip: Status post mechanical fall with left hip fracture Status post left hip bipolar hemiarthroplasty on 10/11 -- (+) SOB today, management noted below -- on Lovenox for DVT prophylaxis since 10/12 to be discharged to Rehab when medically stable -- ff up with [facility] 10 days after surgery (2) COPD, moderate: Acute on Chronic Hypoxic Respiratory Failure -- likely COPD Exacerbation component of mild volume overload -- patient takes nebs q4h at home, has not been receiving this while admitted -- CXR: Cardiomegaly and emphysema with no acute cardiopulmonary abnormality. -- Solumedrol 40mg IV stat Nebs q6h Advair started Lasix 20mg IV one dose, IV fluids discontinued -- re-evaluated at around 3pm patient states she feels much better lungs: better air entry BL, no rales or wheezing (3) HTN (hypertension): -- stable Amlodipine, Enalapril (4) High cholesterol: -- Continue current Simvastatin Subjective ff up for s/p left hip surgery notified by RN that patient was requiring higher 02 supplement, tachycardic seen resting in bed, on 5 L NC not in distress reports mild dyspnea and dry cough, no sputum denies chest pain, palpitations, dizziness no abdominal pain, nausea/vomiting no other symptom Review of Systems Review of Systems: All systems reviewed & are unremarkable except as noted in HPI & below Physical Exam Physical Exam: General- oriented x 3, not in distress, speaks in sentences with no effort or accessory muscle use Head- atraumatic Eyes- PERRL, EOMI, anicteric ENT- oropharynx clear Neck- supple, no JVD, no adenopathy, no thyromegaly; carotids +2/2, no bruits appreciated Lungs- diminished breath sounds bilaterally, faint wheeze at the bases Heart- normal rate, regular rhythm; no murmur, no gallop, no rub appreciated Abdomen- normal bowel sounds, nondistended, soft, nontender, no masses or hepatosplenomegaly Extremities- Left hip- dressing in place, no bleeding/discharge/hematoma no pretibial edema, no calf tenderness; peripheral pulses intact Neuro- alert, oriented x 3; CN 2-12 grossly intact; motor 5/5 bilaterally;sensation 100% on all extremities; no other gross focal neurologic deficits Skin- warm & dry Results & Data Vital Signs (Past 12 Hours) Vital Signs Temp Pulse Pulse Resp BP Pulse Ox 10/15/19 07:03 101 H 22 90 10/15/19 06:49 36.8 C 100 H 17 141/70 H 87 L 10/14/19 23:35 95 H 14 91 10/14/19 23:15 37 C 104 H 18 126/63 88 L Laboratory Results Laboratory Results - last 24 hr 10/15/19 07:40 WBC 9.24 RBC 3.04 L Hgb 8.9 L Hct 27.1 L MCV 89.1 MCH 29.3 MCHC 32.8 RDW Std Deviation 49.2 H RDW Coeff of Gladis 14.9 H Plt Count 269 MPV 9.3 Immature Gran % (Auto) 0.3 Neut % (Auto) 76.8 Lymph % (Auto) 11.9 [place] % (Auto) 9.6 Eos % (Auto) 1.2 Baso % (Auto) 0.2 Immature Gran # (Auto) 0.03 H Neut # (Auto) 7.09 H Lymph # (Auto) 1.10 L [place] # (Auto) 0.89 H Eos # (Auto) 0.11 Baso # (Auto) 0.02 (1) Subcapital fracture of left hip Encounter type: initial encounter Fracture type: closed Qualified Code(s): S72.012A - Unspecified intracapsular fracture of left femur, initial encounter for closed fracture
[2019-10-15] MEDS ORDERED: XOPENEX/ATROVENT 0.63mg/0.5MG NEB COMBO NEB SCH (11:15)
[2019-10-15] MEDS ORDERED: methylPREDNISolone 40 MG in SYRINGE 0 ML IV STA (11:17)
[2019-10-15] MEDS: FLUTICASONE/SALMETEROL 250/50 (ADVAIR) 14 PUFF/1 INHALER INH SCH ×3 (11:36→22:58)
--- NOTE | 2019-10-15 11:38 | XRay Report ---
SINGLE VIEW CHEST CLINICAL HISTORY: Hypoxia. FINDINGS: 2 AP, portable, upright chest radiographs are compared to study dated 10/11/2019 and correl ated with chest CT dated 10/22/2017. The examination is degraded by portable technique, apical lordotic positioning, and patient rotation. The heart is mildly enlarged and there is atherosclerotic calcifi cation of the thoracic aorta. The pulmonary vasculature is noncongested. Emphysema and chronic inters titial thickening are similar to previous. There is mild bibasilar scarring/atelectasis. No airspace consolidation or large pleural effusion is identified. No pneumothorax is seen. The skeletal structur es are osteopenic. The bony thorax is grossly intact. IMPRESSION: Cardiomegaly and emphysema with no acute cardiopulmonary abnormality. ACT 112: Negative or not required by law. Electronically signed by: Thompson Solorio M.D. 10/15/2019 11:36 AM
[2019-10-15] MEDS: ACETAMINOPHEN 325 MG TAB PO PRN (11:45)
[2019-10-15] MEDS ORDERED: FUROSEMIDE 20 MG in SYRINGE 0 ML IV ONE (12:00)
[2019-10-15] MEDS: HYDROmorphone INJ 0.5 MG/0.5 ML SYR IV PRN (12:27)
[2019-10-15] MEDS: LEVALBUTEROL HCL 0.63 MG/3 ML NEB NEB SCH ×2 (13:56→19:23)
[2019-10-15] MEDS: IPRATROPIUM BROMIDE NEB SOLN 0.02% 2.5 ML VIAL INH SCH ×2 (13:56→19:23)
[2019-10-15] MEDS: ALUMINUM/MAGNESIUM/SIMETH (MAALOX MAX) 30 ML UDC PO PRN (18:41)
--- NOTE | 2019-10-15 19:00 | Communication Note ---
Date of Service: October 15, 2019 Notified by RN as patient had chest pain while transferring from bed to chair EKG: Sinus tachycardia, no signs of acute ischemia First troponin: 0.05 Seen resting in bed, not in distress, states chest discomfort is on the lateral side-sharp, no other associated symptoms Given Maalox Chest pain likely secondary to muscular skeletal pain Doubt ACS, but will check 2 sets of troponins No contraindications for heparin drip if necessary Will sign out to Dr. Rosita Hough MD
[2019-10-15] MEDS: SIMVASTATIN 20 MG TAB PO SCH ×2 (22:06→22:59)
[2019-10-16] MEDS: IPRATROPIUM BROMIDE NEB SOLN 0.02% 2.5 ML VIAL INH SCH ×4 (01:27→19:38)
[2019-10-16] MEDS: LEVALBUTEROL HCL 0.63 MG/3 ML NEB NEB SCH ×4 (01:27→19:38)
[2019-10-16] MEDS: OXYCODONE HCL IR 5 MG TAB (IMMEDIATE RELEASE) PO PRN ×4 (04:44→21:16)
[2019-10-16] MEDS: AMLODIPINE BESYLATE 5 MG TAB PO SCH (07:31)
--- NOTE | 2019-10-16 07:52 | Orthopedic Progress Note ---
Date of Service October 16, 2019 Assessment & Plan (1) Subcapital fracture of left hip: Making uncomplicated progress at postop day 5 -continue plan of care and await for transfer to [facility], hopefully today. Continue pain management per the primary team. Continue DVT prophylaxis. Continue PT/OT evaluations. Dressing can be changed daily until the wound is dry for 24 hours. Disposition: After discharge, she can follow-up with orthopedics in 10 to 14 days after her surgery. She will need staple removal and repeat radiographs. Supervising Physician Co-Signing Physician Notes ATTENDING NOTE: John Reyez PA-C assisted in caring for this patient. I agree with his note. The assessment and plan is my own. Valencia Howell is 5 days s/p subcapital femoral fracture. She is making progress as expected. She states her pain comes and goes. She has been using her walker with PT for ambulation. She still reports constipation but is otherwise symptomatic free. She is planning on going to [facility] today for additional rehabilitation. She denies fever, chills, and sweats. Review of Systems Review of Systems: All systems reviewed & are unremarkable except as noted in HPI & below Physical Exam Physical Exam: She was sitting upright in her bed. A+0x3 She is cooperative on exam. She is very conversant and pleasant. Left hip: Leg lengths appear to be equal on inspection. She is distally neurovascular intact with positive dorsiflexion/plantarflexion/EHL activity. She has 2+ DP/PT pulses. Her dressing was changed this morning. There was mild spotting noted on the previous dressing but no active signs of drainage today. Her incision was clean, dry, and intact. Constitutional: WD/WN, vitals as above well nourished and + well hydrated; no acute distress Results & Data Vital Signs (Past 12 Hours) Vital Signs Temp Pulse Pulse Pulse Pulse Resp BP 10/16/19 07:37 36.8 C 100 H 22 138/60 10/16/19 07:09 108 H 16 10/16/19 06:47 36.7 C 93 H 16 130/68 10/16/19 01:29 109 H 16 10/15/19 23:35 96 H 10/15/19 23:15 37.0 C 113 H 17 146/70 H Pulse Ox 10/16/19 07:37 91 10/16/19 07:09 93 10/16/19 06:47 95 10/16/19 01:29 98 10/15/19 23:35 10/15/19 23:15 91 PG Care Time/CCT Total # of Minutes Spent Total Time Spent with Patient: Total time spent is greater than 50% in coordination of care (as documented) at patient's floor/unit and/or counseling patient: (1) Subcapital fracture of left hip Encounter type: initial encounter Fracture type: closed Qualified Code(s): S72.012A - Unspecified intracapsular fracture of left femur, initial encounter for closed fracture
[2019-10-16 08:40] LABS: BUN Creatinine Ratio 22.8 (10-20); Creatinine Clr Calc Pharmacy 56.7 ml/min; Est GFR (Non-African American) 82.8; Potassium 3.9 mmol/L (3.5-5.1)
[2019-10-16 08:47] LABS: Troponin I 0.05 ng/ml (0-0.045)
[2019-10-16] MEDS: FLUTICASONE/SALMETEROL 250/50 (ADVAIR) 14 PUFF/1 INHALER INH SCH ×2 (09:18→20:23)
[2019-10-16] MEDS: FLUTICASONE PROPIONATE NA SPR 16 GM BTL SCH (09:19)
[2019-10-16] MEDS: MULTIVITAMIN TAB PO SCH (09:20)
[2019-10-16] MEDS: CHOLECALCIFEROL 1,000 UNITS TAB PO SCH (09:20)
[2019-10-16] MEDS: ENOXAPARIN INJ 40 MG/0.4 ML SYR SQ SCH (09:20)
[2019-10-16] MEDS: ENALAPRIL MALEATE 10 MG TAB PO SCH (09:20)
[2019-10-16] MEDS ORDERED: MAGNESIUM HYDROXIDE SUSP 30 ML UDC PO PRN (11:26)
--- NOTE | 2019-10-16 11:50 | Hospitalist Progress Note ---
Date of Service October 16, 2019 Assessment & Plan (1) Subcapital fracture of left hip: (1) Subcapital fracture of left hip: Status post mechanical fall with left hip fracture Status post left hip bipolar hemiarthroplasty on 10/11 -- stable today -- on Lovenox for DVT prophylaxis since 10/12, continue x at least 6 weeks -- ff up with [facility] Dr. Ruddy Hancock next week daily dressing changes continue PT/OT discharge to Rehab (2) COPD, moderate: Acute on Chronic Hypoxic Respiratory Failure -- likely COPD Exacerbation component of mild volume overload -- patient takes nebs q4h at home, has not been receiving this while admitted -- CXR: Cardiomegaly and emphysema with no acute cardiopulmonary abnormality. -- patient given: Solumedrol 40mg IV stat Nebs q6h Advair started Lasix 20mg IV one dose, IV fluids discontinued -- patient states she feels much better back to O2 2.5L via NC (baseline) -- discharge plan: Advair (new medication) continue Nebs but reduce to Q6h, from q4h at home ff up with [employer] Dr. Boyle upon discharge from Rehab (3) HTN (hypertension): -- stable Amlodipine, Enalapril (4) High cholesterol: -- Continue current Simvastatin discharge to Rehab when accepted ff up with Ortho and Pulmonary as noted above Subjective ff up for sp hip surgery now down to 2.5 L via NC resting, comfortable states she feels much better today no dyspnea, cough, chest pain feeling "gassy", no BM's yet but (+) flatus, no nausea/vomiting denies chest pain, palpitations, dizziness no other symptoms states she is ready for discharge today if accepted to Rehab Review of Systems Review of Systems: All systems reviewed & are unremarkable except as noted in HPI & below Physical Exam Physical Exam: General- oriented x 3, not in distress, speaks in sentences with no effort or accessory muscle use Eyes- anicteric Neck- no JVD Lungs- clear breath sounds bilaterally, no rales/wheezes Heart- normal rate, regular rhythm; no murmurs Abdomen- normal bowel sounds, nondistended, soft, nontender Extremities- no pretibial edema, no calf tenderness left hip: dressing in place, no hematoma/edema/erythema Neuro- alert, oriented x 3; no gross focal neurologic deficits Skin- warm & dry Results & Data Vital Signs (Past 12 Hours) Vital Signs Temp Pulse Pulse Pulse Resp BP Pulse Ox 10/16/19 07:37 36.8 C 100 H 22 138/60 91 10/16/19 07:09 108 H 16 93 10/16/19 06:47 36.7 C 93 H 16 130/68 95 10/16/19 01:29 109 H 16 98 Laboratory Results Laboratory Results - last 24 hr 10/15/19 10/15/19 10/16/19 18:05 23:08 05:20 Sodium Potassium Chloride Carbon Dioxide Anion Gap BUN Creatinine Est Cr Clr Drug Dosing Est GFR ( Amer) Est GFR (Non-Af Amer) BUN/Creatinine Ratio Glucose Calcium Troponin I 0.055 H* 0.044 0.049 H* 10/16/19 07:58 Sodium 133 L Potassium 3.9 Chloride 93 L Carbon Dioxide 37 H Anion Gap 2.0 L BUN 14 Creatinine 0.62 Est Cr Clr Drug Dosing 56.7 Est GFR ( Amer) 96.0 Est GFR (Non-Af Amer) 82.8 BUN/Creatinine Ratio 22.8 H Glucose 109 H Calcium 9.0 Troponin I 0.050 H* (1) Subcapital fracture of left hip Encounter type: initial encounter Fracture type: closed Qualified Code(s): S72.012A - Unspecified intracapsular fracture of left femur, initial encounter for closed fracture
[2019-10-16] MEDS: DOCUSATE SODIUM/SENNA 50/8.6MG TAB PO SCH (12:04)
--- NOTE | 2019-10-16 12:04 | Discharge Summary ---
Date of Service October 16, 2019 Admission HPI Per Admitting Provider CHIEF COMPLAINT: Status post fall and left hip fracture. HISTORY OF PRESENT ILLNESS: This is an 84-year-old female with past medical history significant for hyperlipidemia, COPD - on home oxygen, pulmonary hypertension, hypertension. The patient lives alone. She comes with a fall and found to have a left hip fracture. In the middle of the night when she went to bathroom, she tripped on her oxygen cannula and fell in the bathroom. She somehow got into the bedroom and sat in a chair and she waited until 3:30 in the morning to call her daughter and was brought in here. Imaging study shows a left hip fracture. After the pain medication, currently she feels drowsy. She says she did not loss her consciousness. She did not hit her head. Denies any headache, no dizziness, no blurred vision, no earache, no runny nose, no sore throat, no difficulty swallowing. Appetite is okay. No chest pain, no shortness of breath, no cough, no fevers, no nausea, no vomiting, no abdominal pain. Sometimes constipated, but no black stools or bloody stools. Normal bladder movements. No hematuria. No swelling in the legs, no rash. Hemodynamically stable. Daughter says the patient is otherwise very active. She can climb steps and walk without any issues. ALLERGIES: BEE STINGS. PAST MEDICAL HISTORY: As mentioned above. PAST SURGICAL HISTORY: Ligation of oviduct, appendectomy, cataract surgery. MEDICATIONS: The patient is on Flonase 2 sprays to each nostril daily, DuoNeb q.6 hours p.r.n., simvastatin 20 mg p.o. daily, enalapril 10 mg p.o. daily, amlodipine 10 mg p.o. daily, vitamin D 2000 units p.o. daily, EpiPen p.r.n., multivitamins p.o. daily, aspirin 81 mg p.o. daily. FAMILY HISTORY: Significant for mother had diabetes, stroke. Daughter has hypothyroidism. Father at the age of 65. Sister has SD. SOCIAL HISTORY: , currently lives alone. Quit smoking in 2017, smoked for 48 years. Alcohol rare. No drug use. REVIEW OF SYMPTOMS: As per HPI. Rest of the review of systems is negative. Admission Exam Per Admitting Provider PHYSICAL EXAMINATION: GENERAL: The patient is old and frail, not in acute distress. VITAL SIGNS: Temperature 36.6, pulse 83, respiratory rate 16, blood pressure 130/65, oxygen 95% on 2.5 liters. HEENT: No pallor, no icterus. Pupils equal, round, reactive to light. NECK: No JVD, no neck masses, no carotid bruits. CARDIOVASCULAR: S1, S2 heard, regular rhythm. No murmurs. RESPIRATORY SYSTEM: Normal AP diameter. No accessory muscle use. No wheezing, no crackles. ABDOMEN: Soft, bowel sounds present, nontender. No distention. CENTRAL NERVOUS SYSTEM: Cranial nerves II-XII grossly intact. Nonfocal. EXTREMITIES: No edema, no erythema. Principal Diagnosis Left femoral neck fracture S/p Left Bipolar Hip Hemiarthroplasty(Left) Discharge Exam General- oriented x 3, not in distress, speaks in sentences with no effort or accessory muscle use Eyes- anicteric Neck- no JVD Lungs- clear breath sounds bilaterally, no rales/wheezes Heart- normal rate, regular rhythm; no murmurs Abdomen- normal bowel sounds, nondistended, soft, nontender Extremities- no pretibial edema, no calf tenderness left hip: dressing in place, no hematoma/edema/erythema Neuro- alert, oriented x 3; no gross focal neurologic deficits Skin- warm & dry Discharge Data Allergies Allergy/AdvReac Type Severity Reaction Status Date / Time bee venom protein (honey bee) Allergy Mild RASH Verified 10/11/19 05:59 nickel AdvReac Redness of Verified 10/11/19 12:21 Skin Consultations 10/11/19 06:13 Consult Orthopedic Surgery Stat ED Decision to Admit Stat 10/11/19 07:57 Consult Case Management - Discharge Planning Routine 10/11/19 15:47 Consult Case Management - Discharge Planning Routine Procedures Performed Operation Date: 10/11/19 09:30 Actual Procedures p Left Bipolar Hip Hemiarthroplasty(Left) - Ruddy Hancock [facility] Course (1) Subcapital fracture of left hip: (1) Subcapital fracture of left hip: Status post mechanical fall with left hip fracture Status post left hip bipolar hemiarthroplasty on 10/11 -- stable today -- on Lovenox for DVT prophylaxis since 10/12, continue x at least 6 weeks -- ff up with [facility] Dr. Ruddy Hancock next week daily dressing changes continue PT/OT discharge to Rehab (2) COPD, moderate: Acute on Chronic Hypoxic Respiratory Failure -- likely COPD Exacerbation component of mild volume overload -- patient takes nebs q4h at home, has not been receiving this while admitted -- CXR: Cardiomegaly and emphysema with no acute cardiopulmonary abnormality. -- patient given: Solumedrol 40mg IV stat Nebs q6h Advair started Lasix 20mg IV one dose, IV fluids discontinued -- patient states she feels much better back to O2 2.5L via NC (baseline) -- discharge plan: Advair (new medication) continue Nebs but reduce to Q6h, from q4h at home ff up with [employer] Dr. Boyle upon discharge from Rehab (3) HTN (hypertension): -- stable Amlodipine, Enalapril (4) High cholesterol: -- Continue current Simvastatin discharge to Rehab when accepted ff up with Ortho and Pulmonary as noted above Total Time Total Time Spent Total Time Spent (In Minutes): 55 MINUTES Discharge Plan Discharge Items Patient Disposition: Home - Home Health Services Reason For Visit: FALL Discharge Diagnosis: Left femoral neck fracture Activity: Per Instructions section Lifting: Wait until after follow-up appointment Bathing: May shower/bathe in 3 days Weightbearing: Full weightbearing Non-emergency contact: Surgeon Call non-emergency contact if: your pain is not controlled, your temperature is above 101.5, your wound has increased redness and your wound has increased drainage Follow-up/Referrals: Anthony Boyle MD [Physician] - Ruddy aHncock [Surgeon] - (10-14 days after surgery for staple removal and repeat x-rays) Roger Khalil MD [Primary Care Provider] - 10/16/19 9:05 am Diet: Heart Healthy Addtl Attending Provider Instructions: MONITOR RESPIRATORY STATUS. PLEASE REFER TO ACCOMPANYING HOSPITAL DISCHARGE SUMMARY FOR FURTHER DETAILS. ORTHOPEDIC INSTRUCTIONS Hip Hemiarthroplasty Activity and Therapy Recommendations: 1. You were shown a series of exercises in the hospital. Do these exercises three times each day if you are able. CONTINUE POSTERIOR HIP PRECAUTIONS. 2. Get up and walk several times each day if you are capable. Make sure you have assistance is needed. For the first four weeks, try not to stand or walk for more than one hour at a time. If you do stand or walk for more than one hour, you will not hurt anything, but your leg will likely swell. 3. As you feel comfortable, you may change from the walker or crutches to a cane and then to independent walking if you are able. Please be safe. Medications: 1. Narcotic You will likely be sent from the hospital with the narcotic pain medication that worked best throughout your stay. 2. Aspirin You will be required to take Aspirin 81mg twice a day (or another blood clot medication from your medical doctor) for 6 weeks after surgery to prevent blood clots. 3. Other medications may be given for specific circumstances. If you have any questions, please call the office at [phone]. 4. Resume previous home medications unless otherwise instructed TEDs/Elastic Stockings: The white elastic stockings help limit swelling and prevent blood clots from forming in your legs. The more you wear them, the more they work. Wear them for six weeks. Dressing Care: Keep the dressing in place, clean and dry until 3 days after surgery. After that, it is ok to cleanse around the wound with gentle soap and water. Redress the wound with light clean dressing and change daily until there is no drainage or spotting on the dressing for over 24 hours. Then, you may leave the pa open to air or cover them with a dry dressing so they do not rub on your pants. The pa will be removed at your 2 week follow-up appointment. Showering: After 3 days, the dressing is removed and you may shower normally with the pa exposed. Let soapy water run over the pa and pat them dry. Do not soak or submerse the wound until pa are out and 3 weeks have passed since surgery. Things To Watch For: 1. Drainage from the incision site that occurs more than one week after your surgery. 2. Increased redness at the incision site. 3. Fever above 102 degrees Fahrenheit. 4. Unusual chest pain or shortness of breath. 5. Call [facility] at with any of the above problems Follow-Up Visit: Follow-up with Dr. Hancock 2 weeks after your day of surgery. Please call to make an appointment or be sure your rehab facility has made one. If you have any questions call Pending Studies at Discharge: Yes Studies:: repeat CBC and BMP in 1 week Stand-Alone Forms: My [facility], Smoking Cessation Medications and DC Order Prescriptions: New levalbuterol HCl 0.63 mg/3 mL Solution For Nebulization 0.63 mg NEB Q6R 30 Days Qty: 90 RF: 2 magnesium hydroxide [Milk of Magnesia] 400 mg/5 mL Suspension 30 ml PO Q6H PRN (Reason: constipation) 30 Days Qty: 50 RF: 0 ipratropium bromide 0.02 % Solution 0.5 mg inhalation Q6R 30 Days Qty: 150 RF: 0 oxycodone 5 mg Tablet 5 mg PO Q4H PRN (Reason: pain) 7 Days Qty: 10 RF: 0 enoxaparin 40 mg/0.4 mL Syringe 40 mg subcut QAM 45 Days Qty: 18 RF: 0 fluticasone propion-salmeterol [Advair Diskus] 250-50 mcg/dose Blister With Device 1 ea inhalation BID 30 Days Qty: 60 RF: 2 sennosides-docusate sodium [Senokot-S] 8.6-50 mg Tablet 1 tab PO QAM 30 Days Qty: 30 RF: 0 Continued ipratropium-albuterol 0.5 mg-3 mg(2.5 mg base)/3 mL solution for nebulization 3 ml INH Q6H PRN (Reason: Shortness Of Breath Or Wheezing) RF: 0 amlodipine 10 mg tablet 10 mg PO DAILY RF: 0 aspirin 81 mg tablet,delayed release (DR/EC) 81 mg PO DAILY RF: 0 enalapril maleate 10 mg tablet 10 mg PO DAILY RF: 0 epinephrine [EpiPen] 0.3 mg/0.3 mL auto-injector 0.3 mg IM UD PRN (Reason: Allergic Reaction) RF: 0 fluticasone propionate [Allergy Relief (fluticasone)] 50 mcg/actuation spray,suspension 2 sprays INTNAS DAILY RF: 0 multivitamin tablet 1 tab PO DAILY RF: 0 simvastatin 20 mg tablet 20 mg PO QPM RF: 0 cholecalciferol (vitamin D3) [Vitamin D3] 1,000 unit Tablet,Chewable 1,000 unit PO DAILY RF: 0 Discharge Orders: Discharge Order (Routine); Ordered 10/16/19 Ordered By: Raymundo Hough Admission Data Admit Date/Time: 10/11/19 06:48 Attending Provider: Raymundo Hough Admit Provider: Gregorio Cantu Primary Care Provider: Roger Khalil Other Providers: Ruddy Hancock ; Gregorio Cantu ; Kristin Thacker at [facility] ; Tommie Brambila
[2019-10-16] MEDS: ACETAMINOPHEN 325 MG TAB PO PRN ×3 (12:05→23:34)
[2019-10-16] MEDS: SIMETHICONE 80 MG CHEW PO PRN (15:17)
[2019-10-16] MEDS: SIMVASTATIN 20 MG TAB PO SCH (20:23)
[2019-10-17] MEDS: LEVALBUTEROL HCL 0.63 MG/3 ML NEB NEB SCH ×2 (00:16→07:16)
[2019-10-17] MEDS: IPRATROPIUM BROMIDE NEB SOLN 0.02% 2.5 ML VIAL INH SCH ×2 (00:16→07:16)
[2019-10-17] MEDS: OXYCODONE HCL IR 5 MG TAB (IMMEDIATE RELEASE) PO PRN ×2 (07:51→09:15)
--- NOTE | 2019-10-17 07:51 | Orthopedic Progress Note ---
Date of Service October 17, 2019 Assessment & Plan (1) Subcapital fracture of left hip: Making uncomplicated progress at postop day 6 -continue plan of care and await for transfer to [facility], hopefully today. Continue pain management per the primary team. Continue DVT prophylaxis. Continue PT/OT evaluations. Dressing can be changed daily until the wound is dry for 24 hours. Remove Briscoe before discharge unless absolutely needed for fluid management reasons Disposition: After discharge, she can follow-up with orthopedics in 10 to 14 days after her surgery. She will need staple removal and repeat radiographs. Supervising Physician Co-Signing Physician Notes Patient was seen and examined by myself. I agree with the physician's volunteer services assistant's note. We ordered the Briscoe to remove the day 1 but understand it was desired for fluid management monitoring. If possible, I would recommend removing the Briscoe given her hip implant. If necessary for fluid management reasons that I defer to the primary team's management. Appreciate hospitalist care of this patient. Subjective Dante is 6 days s/p left subcapital femoral fracture. States she had some difficulty with pain control yesterday but her pain eventually subsided and she was able to sleep well through the night. Her pain is well controlled this morning. States she has continued ambulating with PT, using her walker. She does still report constipation and increased gas production. She has no other new complaints today. She is hoping to be transferred to [facility] today after a communication issue yesterday. She is looking forward to this transition. She denies and fever, chills, or sweats. Review of Systems Review of Systems: All systems reviewed & are unremarkable except as noted in HPI & below Physical Exam Physical Exam: She was sitting upright in her bed. A+0x3 She is cooperative on exam. She is very conversant and pleasant. Left hip: Leg lengths appear to be equal on inspection. She is distally neurovascular intact with positive dorsiflexion/plantarflexion/EHL activity. She has 2+ DP/PT pulses. Her dressing had no active signs of drainage today. Her incision was clean, dry, and intact. Constitutional: WD/WN, vitals as above well nourished and + well hydrated; no acute distress Results & Data Vital Signs (Past 12 Hours) Vital Signs Temp Pulse Pulse Resp BP Pulse Ox 10/17/19 00:17 89 20 96 10/16/19 23:30 36.7 C 92 H 17 157/70 H 93 PG Care Time/CCT Total # of Minutes Spent Total Time Spent with Patient: Total time spent is greater than 50% in coordination of care (as documented) at patient's floor/unit and/or counseling patient: (1) Subcapital fracture of left hip Encounter type: initial encounter Fracture type: closed Qualified Code(s): S72.012A - Unspecified intracapsular fracture of left femur, initial encounter for closed fracture
--- NOTE | 2019-10-17 08:14 | Electrocardiogram Report ---
Test Reason : Blood Pressure : / mmHG Vent. Rate : 128 BPM Atrial Rate : 128 BPM P-R Int : 138 ms QRS Dur : 074 ms QT Int : 286 ms P-R-T Axes : 074 058 071 degrees QTc Int : 417 ms Sinus tachycardia with Premature atrial complexes Otherwise normal ECG When compared with ECG of 11-OCT-2019 05:17, Premature atrial complexes are now Present Borderline criteria for Anterior infarct are no longer Present Nonspecific T wave abnormality now evident in Lateral leads Confirmed by Redd Sanchez ([id number] on 10/16/2019 5:33:38 PM Referred By: REFERRED SELF Confirmed By:Zack Sanchez
[2019-10-17] MEDS: FLUTICASONE/SALMETEROL 250/50 (ADVAIR) 14 PUFF/1 INHALER INH SCH (08:46)
[2019-10-17] MEDS: FLUTICASONE PROPIONATE NA SPR 16 GM BTL SCH (08:46)
[2019-10-17] MEDS: DOCUSATE SODIUM/SENNA 50/8.6MG TAB PO SCH (08:47)
[2019-10-17] MEDS: AMLODIPINE BESYLATE 5 MG TAB PO SCH (08:47)
[2019-10-17] MEDS: ENOXAPARIN INJ 40 MG/0.4 ML SYR SQ SCH (08:47)
[2019-10-17] MEDS: MULTIVITAMIN TAB PO SCH (08:47)
[2019-10-17] MEDS: CHOLECALCIFEROL 1,000 UNITS TAB PO SCH (08:48)
[2019-10-17] MEDS: ENALAPRIL MALEATE 10 MG TAB PO SCH (08:48)
[2019-10-17] MEDS: SIMETHICONE 80 MG CHEW PO PRN (09:15)
[2019-10-17] MEDS ORDERED: LACTULOSE SYRUP 30 GM/45 ML UDP PO PRN (09:22)
[2019-10-17] MEDS ORDERED: bisacodyL 10 MG SUPP PR PRN (09:22)
--- NOTE | 2019-10-17 10:19 | Hospitalist Progress Note ---
Date of Service Delayed entry Date of service as noted below October 17, 2019 Assessment & Plan (1) Subcapital fracture of left hip: (1) Subcapital fracture of left hip: Status post mechanical fall with left hip fracture Status post left hip bipolar hemiarthroplasty on 10/11 --Patient remained stable for discharge -- on Lovenox for DVT prophylaxis since 10/12, continue x at least 6 weeks -- ff up with [facility] Dr. Ruddy Hancock next week daily dressing changes continue PT/OT discharge to Rehab (2) COPD, moderate: Acute on Chronic Hypoxic Respiratory Failure -- likely COPD Exacerbation component of mild volume overload -- patient takes nebs q4h at home, has not been receiving this while admitted -- CXR: Cardiomegaly and emphysema with no acute cardiopulmonary abnormality. -- patient given: Solumedrol 40mg IV stat Nebs q6h Advair started Lasix 20mg IV one dose, IV fluids discontinued -- patient states she feels much better back to O2 2.5L via NC (baseline) --Respiratory status continues to remain stable -- discharge plan: Advair (new medication) continue Nebs but reduce to Q6h, from q4h at home ff up with [employer] Dr. Boyle upon discharge from Rehab (3) HTN (hypertension): -- stable Amlodipine, Enalapril (4) High cholesterol: -- Continue current Simvastatin discharge to Rehab when accepted ff up with Ortho and Pulmonary as noted above Subjective Follow-up for status post hip repair Seen resting in bed, comfortable, awake and alert, in good spirit States she feels much better overall Pain well controlled No shortness of breath, chest pain No other symptoms States that she is ready and would like to be discharged on that day Review of Systems Review of Systems: All systems reviewed & are unremarkable except as noted in HPI & below Physical Exam Physical Exam: General- oriented x 3, not in distress, speaks in sentences with no effort or accessory muscle use Eyes- anicteric Neck- no JVD Lungs- clear breath sounds, no crackles or wheezing appreciated Heart- normal rate, regular rhythm; no murmurs Abdomen- normal bowel sounds, nondistended, soft, nontender Extremities- no pretibial edema, no calf tenderness Dressing in place, no bleeding or discharge Neuro- alert, oriented x 3; no gross focal neurologic deficits Skin- warm & dry Results & Data Vital Signs (Past 12 Hours) Vital Signs Temp Pulse Pulse Pulse Resp BP BP 10/17/19 07:50 36.4 C L 99 H 21 152/72 H 10/17/19 07:16 89 18 10/17/19 00:17 89 20 10/16/19 23:30 36.7 C 92 H 17 157/70 H Pulse Ox 10/17/19 07:50 89 L 10/17/19 07:16 91 10/17/19 00:17 96 10/16/19 23:30 93 (1) Subcapital fracture of left hip Encounter type: initial encounter Fracture type: closed Qualified Code(s): S72.012A - Unspecified intracapsular fracture of left femur, initial encounter for closed fracture
== END 2019-10-17 11:14 | DRG 469 ==
LOC: ED 04:22 → SUATTDRO 06:48 → 3N 06:48 → 3W 10-12 15:35

== ENCOUNTER 2022-06-15 17:04 | Inpatient (IN) ==
[2022-06-15] MEDS ORDERED: ALBUT/IPRATROP 3MG/0.5MG NEB 3 ML VIAL NEB STA (18:09)
--- NOTE | 2022-06-15 18:13 | Emergency Department Note ---
History of Present Illness General Chief complaint: Shortness of Breath/Dyspnea Stated complaint: SOB Time Seen by Provider: 06/15/22 17:59 Source: patient and family Mode of arrival: EMS Limitations: physical limitation History of Present Illness Provider complaint: Increased shortness of breath, fall Onset (ago): day(s) 3 This is an 86-year-old female presents emergency department via EMS due to increased shortness of breath and fall today. Patient's daughter bedside helps with history as the patient has significant dyspnea made worse with conversation. Patient does have a history of COPD and wears home oxygen at 2.5 L/min chronically. Patient does use MDIs and nebulizers at home and does follow with pulmonology. Daughter states she has had increased difficulty breathing over the last several days. Patient denies fevers or chills, cough, or chest pain. Patient states she does have mild leg swelling but states that is because she has been unable to prop her legs up today. She states today while putting away a vacuum she became off balance and fell. She denies head trauma or LOC. Denies any concern for pain or injury secondary to the fall. Patient does use low-dose aspirin, no other anticoagulation. Patient denies any history of heart problems. Patient did receive neb tx by EMS en route with minimal improvement. Pt seen during a time of high acuity and national emergency pandemic while wearing PPE. Home Medications Medication Instructions Recorded Confirmed Type amlodipine 10 mg tablet 10 mg PO DAILY 09/15/19 06/15/22 History enalapril maleate 10 mg tablet 10 mg PO DAILY 09/15/19 06/15/22 History epinephrine 0.3 mg/0.3 mL 0.3 mg IM UD PRN Allergic Reaction 09/15/19 06/15/22 History injection, auto-injector (EpiPen) simvastatin 20 mg tablet 20 mg PO QPM 09/15/19 06/15/22 History cholecalciferol (vitamin D3) 25 1,000 unit PO DAILY 10/11/19 06/15/22 History mcg (1,000 unit) chewable tablet (Vitamin D3) acetaminophen 325 mg tablet 325 mg PO QID PRN Pain 10/22/19 06/15/22 History aspirin 81 mg tablet,delayed 81 mg PO BID 03/09/21 06/15/22 History release sennosides 8.6 mg capsule (senna) 8.6 mg PO BID 03/09/21 06/15/22 History multivitamin 1 tab PO DAILY 11/30/21 06/15/22 History ipratropium 0.5 mg-albuterol 3 mg 3 ml inhalation Q8H PRN shortness 12/07/21 06/15/22 Rx (2.5 mg base)/3 mL nebulization of breath or wheezing #180 mL soln levalbuterol HCl 0.63 mg/3 mL 0.63 mg (3 mL) NEB Q6H PRN 12/14/21 06/15/22 Rx solution for nebulization shortness of breath or wheezing 30 days #480 mL arformoterol 15 mcg/2 mL solution 2 ml inhalation BID #120 mL 05/03/22 06/15/22 Rx for nebulization (Brovana) budesonide 0.25 mg/2 mL suspension 0.25 mg (2 mL) inhalation BID #60 05/03/22 06/15/22 Rx for nebulization mL pseudoephedrine HCl 120 mg 120 mg PO Q12H 05/03/22 06/15/22 History tablet,extended release (Sudafed 12 Hour) revefenacin 175 mcg/3 mL solution 175 mcg (3 mL) inhalation DAILY 05/03/22 06/15/22 Rx for nebulization (Yupeludyi) #90 mL fluticasone propionate 50 1 spray intranasal BID #16 grams 05/11/22 06/15/22 Rx mcg/actuation nasal spray,suspension ipratropium bromide 42 mcg (0.06 2 spray intranasal TID #15 mL 05/22/22 06/15/22 Rx %) nasal spray ipratropium bromide 0.02 % 0.5 mg (2.5 mL) inhalation Q6H PRN 06/07/22 06/15/22 Rx solution for inhalation shortness of breath or wheezing 30 days #300 mL Allergies Allergy/AdvReac Type Severity Reaction Status Date / Time bee venom protein (honey bee) Allergy Mild RASH Verified 06/15/22 17:49 nickel AdvReac Mild Redness of Verified 06/15/22 17:49 Skin Past Med/Surg History Medical History COPD, moderate High cholesterol HTN (hypertension) Surgical History H/O tubal ligation "1972" History of appendectomy S/P hip hemiarthroplasty Family History Other No pertinent family history Social History Smoking Status: Former smoker Smoking End Date: not known by patient; Second Hand Exposure: No; Do You Dip or Chew Tobacco: No; Tobacco Cessation Education Requested by Patient: No Hx Alcohol Use: No Hx Substance Use: No Preferred Language: Barbadian Communication Ability: Effective 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 Beliefs That Will Affect Care: None marital status: / Current Living Situation: Alone How many Children do You have: 4 Other Information That Helps Us Care for You: No Feels Safe at Home: Yes Safety Concerns: Feels Safe At This Time Assistive Devices: Cane, Stair Lift and Walker Review of Systems A total of 10 systems reviewed and were otherwise negative All systems reviewed & are unremarkable except as noted in HPI & below Physical Exam Vital Signs Vital Signs - 24 hr 06/15/22 17:35 06/15/22 17:41 Temperature 37.0 C Temperature Source Oral Pulse Rate 115 H Respiratory Rate 26 H Respiratory Effort / Characteristics Labored Blood Pressure 176/91 H Blood Pressure Mean 119 Pulse Oximetry 95 Oxygen Delivery Method Nasal Cannula Nasal Cannula Oxygen Flow Rate 2 2.5 Sepsis Recent Fever Within 48 Hours No Sepsis New/Unexplained Change in Mental Status N/A Sepsis Action Taken by Nursing Physician Notified GENERAL: alert, well appearing, well nourished, no distress, non-toxic EYE EXAM: normal conjunctiva, PERRL and EOM's grossly intact OROPHARYNX: no exudate, no erythema, lips, buccal mucosa, and tongue normal and mucous membranes are moist NECK: supple, no nuchal rigidity, no adenopathy, non-tender LUNGS: Tachypnea, increased work of breathing, normal chest wall mechanics, scattered expiratory wheeze worse on the right, coarse breath sounds noted bilaterally worse at the bases HEART: no murmurs, S1 normal and S2 normal, sinus tachycardia noted on telemetry ABDOMEN: abdomen soft, non-tender, normo-active bowel sounds, no masses, no rebound or guarding. BACK: Back is symmetrical on inspection and there is no deformity, no midline tenderness, no CVA tenderness. SKIN: no rashes and no bruising UPPER EXTREMITIES: upper extremities are grossly normal. FROM, nml pulses b/l. LOWER EXTREMITIES: No pitting edema. FROM, nml pulses b/l. NEURO EXAM: Normal sensorium, cranial nerves II-XII grossly intact, normal speech, no gross weakness of arms, no gross weakness of legs. Gross sensation intact. Course Course 1855: patient updated on labs. Administered Medications Acetaminophen (Acetaminophen 325 Mg Tab) 325 mg PO QID PRN PRN Reason: Pain Stop: 07/15/22 21:18 Last Admin: 06/16/22 10:18 Dose: 325 mg Documented By: [id number] Amlodipine Besylate (Amlodipine Besylate 5 Mg Tab) 10 mg PO DAILY SHARITA Stop: 07/16/22 08:59 Last Admin: 06/16/22 08:41 Dose: 10 mg Documented By: [id number] Budesonide (Budesonide 0.25 Mg/2 Ml Vial (Pulmicort)) 0.25 mg INH BIDR SHARITA Stop: 07/15/22 21:29 Last Admin: 06/16/22 19:14 Dose: 0.25 mg Documented By: Admin: 06/16/22 07:25 Dose: 0.25 mg Documented By: Admin: 06/15/22 22:32 Dose: 0.25 mg Documented By: RAQUEL Enalapril Maleate (Enalapril Maleate 10 Mg Tab) 10 mg PO DAILY SHARITA Stop: 07/16/22 08:59 Last Admin: 06/16/22 08:41 Dose: 10 mg Documented By: [id number] Fluticasone Propionate (Fluticasone Propionate Na Spr 16 Gm Btl) 1 sprays HOLLIS BID SHARITA Stop: 07/15/22 21:29 Last Admin: 06/16/22 20:30 Dose: 1 sprays Documented By: Admin: 06/16/22 08:40 Dose: 1 sprays Documented By: [id number] Admin: 06/15/22 22:53 Dose: 1 sprays Documented By: PERNELL Formoterol Fumarate (Formoterol 20 Mcg/2 Ml Vial) 20 mcg INH BIDR SHARITA Stop: 07/15/22 21:29 Last Admin: 06/16/22 19:14 Dose: 20 mcg Documented By: Admin: 06/16/22 07:24 Dose: 20 mcg Documented By: Admin: 06/15/22 22:27 Dose: 20 mcg Documented By: RAQUEL Methylprednisolone 40 mg/ (Syringe) 0.64 mls @ 1.5 mls/min IV BID SHARITA Stop: 07/16/22 08:59 Last Admin: 06/16/22 21:23 Dose: 1.5 mls/min Documented By: Admin: 06/16/22 08:40 Dose: 1.5 mls/min Documented By: [id number] Ipratropium [place] (Ipratropium [place] Nasal [place] 0.06% 15ml) 2 sprays HOLLIS TID SHARITA Stop: 07/15/22 21:29 Last Admin: 06/16/22 20:30 Dose: 2 sprays Documented By: Admin: 06/16/22 14:39 Dose: 2 sprays Documented By: [id number] Admin: 06/16/22 08:40 Dose: 2 sprays Documented By: [id number] Admin: 06/15/22 22:54 Dose: 2 sprays Documented By: PERNELL Levalbuterol HCl (Levalbuterol Hcl 1.25 Mg/3 Ml Neb) 1.25 mg INH HS SHARITA Stop: 07/15/22 21:29 Last Admin: 06/16/22 19:14 Dose: 1.25 mg Documented By: Admin: 06/15/22 22:28 Dose: 1.25 mg Documented By: RAQUEL Miscellaneous (Order Awaiting Action) 1 each N/A QS SHARITA Stop: 07/16/22 00:00 Last Admin: 06/16/22 23:28 Dose: Not Given Documented By: Admin: 06/16/22 16:37 Dose: Not Given Documented By: [id number] Admin: 06/16/22 08:40 Dose: Not Given Documented By: [id number] Admin: 06/16/22 00:49 Dose: Not Given Documented By: PERNELL Multivitamins (Multivitamin Tab) 1 tab PO DAILY SHARITA Stop: 07/16/22 08:59 Last Admin: 06/16/22 08:41 Dose: 1 tab Documented By: [id number] Sennosides (Senna 8.6 Mg Tab) 8.6 mg PO BID SHARITA Stop: 07/15/22 21:29 Last Admin: 06/16/22 20:28 Dose: 8.6 mg Documented By: Admin: 06/16/22 08:41 Dose: 8.6 mg Documented By: [id number] Admin: 06/15/22 22:51 Dose: 8.6 mg Documented By: PERNELL Simvastatin (Simvastatin 20 Mg Tab) 20 mg PO QPM SHARITA Stop: 07/15/22 21:29 Last Admin: 06/16/22 20:29 Dose: 20 mg Documented By: Admin: 06/15/22 22:52 Dose: 20 mg Documented By: MPC Vitamin D (Cholecalciferol 1,000 Units 25 Mcg Tab) 1,000 units PO DAILY SHARITA Stop: 07/16/22 08:59 Last Admin: 06/16/22 08:41 Dose: 1,000 units Documented By: [id number] Discontinued Medications Albuterol (Albut/Ipratrop 3mg/0.5mg Neb 3 Ml Vial) 3 ml NEB NOW STA; Protocol Stop: 06/15/22 18:10 Last Admin: 06/15/22 19:00 Dose: 3 ml Documented By: RUDOLPH Amlodipine Besylate (Amlodipine Besylate 5 Mg Tab) 5 mg PO NOW STA Stop: 06/15/22 19:47 Last Admin: 06/15/22 20:54 Dose: 5 mg Documented By: LARS Methylprednisolone (Methylprednisolone 40 Mg/Ml Vial) 40 mg IV NOW STA Stop: 06/15/22 19:49 Last Admin: 06/15/22 20:54 Dose: 40 mg Documented By: LARS Medical Decision Making Differential Diagnosis Differential diagnoses includes but is not limited to pneumonia, bronchitis, COPD/Asthma exacerbation, pneumothorax, pulmonary embolism, congestive heart failure, acute coronary syndrome Medical Records Attestation: I reviewed the patient's medical records. Home Medications Current Medication List: was personally reviewed by me Laboratory Data Attestation: I reviewed the patient's lab results. Result diagrams: 06/16/22 05:42 06/16/22 05:42 Lab Results 06/15/22 06/15/22 06/15/22 Range/Units 17:20 17:20 18:16 WBC 10.86 H (4.8-10.8) K/ul RBC 2.66 L (3.93-5.22) M/uL Hgb 7.0 L (12.0-16.0) g/dl Hct 22.4 L (34.1-44.9) % MCV 84.2 (80.0-100.0) fL MCH 26.3 (25.0-34.0) pg MCHC 31.3 L (32.0-36.0) g/dL RDW Std Deviation 43.8 (36.4-46.3) fL RDW Coeff of Gladis 14.3 (11.5-14.5) % Plt Count 526 H (130-400) K/uL MPV 10.4 (9.4-12.3) fL Immature Gran % (Auto) 0.4 % Neut % (Auto) 84.2 % Lymph % (Auto) 7.4 % [place] % (Auto) 6.0 % Eos % (Auto) 1.6 % Baso % (Auto) 0.4 % Neut # (Auto) 9.16 H (1.4-6.5) K/uL Lymph # (Auto) 0.80 L (1.2-3.4) K/uL [place] # (Auto) 0.65 (0.24-0.82) K/uL Eos # (Auto) 0.17 (0-0.50) K/uL Baso # (Auto) 0.04 (0-0.2) K/uL Immature Gran # (Auto) 0.04 H (0.00-0.02) K/uL Hypochromasia Present Poikilocytosis Present Ovalocytes 1+ ABG pH 7.44 (7.35-7.45) ABG pCO2 45 (35-46) mmHg ABG pO2 88 (80-95) mmHg ABG HCO3 31 H (19-24) mmol/L ABG O2 Saturation 99.8 H (90-95) % ABG Base Excess 5.6 H (-9-1.8) mEq/L Chai Test POS (Pos) Oxygen Given 2.5L Sodium 130 L (136-145) mmol/L Potassium 4.1 (3.5-5.1) mmol/L Chloride 93 L (98-107) mmol/L Carbon Dioxide 28 (21-32) mmol/L Anion Gap 9 (3-11) BUN 13 (6-23) mg/dl Creatinine 0.74 (0.6-1.2) mg/dl Est Cr Clr Drug Dosing Not Reportable Est GFR ( Amer) 85.0 ml/min Est GFR (Non-Af Amer) 73.4 ml/min BUN/Creatinine Ratio 17.6 (10-20) Glucose 115 H (70-99(Fasting)) mg/dl Calcium 9.4 (8.5-10.1) mg/dl Magnesium 1.8 (1.7-2.4) mg/dl Total Bilirubin 0.4 (0.2-1.0) mg/dl AST 19 (13-39) U/L ALT 12 (7-52) U/L Alkaline Phosphatase 43 (34-104) U/L Troponin I High Sens 17.9 H (0-14) pg/ml B-Natriuretic Peptide (0-100) pg/ml Total Protein 7.0 (6.0-8.3) gm/dl Albumin 4.1 (3.4-5.0) gm/dl Globulin 2.9 (2.5-4.0) gm/dl Albumin/Globulin Ratio 1.4 (0.9-2) Lipase 36 (11-82) U/L SARS-CoV-2, RNA, NAAT (NEGATIVE) Blood Type Blood Type Recheck Antibody Screen Crossmatch 06/15/22 06/15/22 06/15/22 Range/Units 18:16 19:07 19:26 WBC (4.8-10.8) K/ul RBC (3.93-5.22) M/uL Hgb (12.0-16.0) g/dl Hct (34.1-44.9) % MCV (80.0-100.0) fL MCH (25.0-34.0) pg MCHC (32.0-36.0) g/dL RDW Std Deviation (36.4-46.3) fL RDW Coeff of Gladis (11.5-14.5) % Plt Count (130-400) K/uL MPV (9.4-12.3) fL Immature Gran % (Auto) % Neut % (Auto) % Lymph % (Auto) % [place] % (Auto) % Eos % (Auto) % Baso % (Auto) % Neut # (Auto) (1.4-6.5) K/uL Lymph # (Auto) (1.2-3.4) K/uL [place] # (Auto) (0.24-0.82) K/uL Eos # (Auto) (0-0.50) K/uL Baso # (Auto) (0-0.2) K/uL Immature Gran # (Auto) (0.00-0.02) K/uL Hypochromasia Poikilocytosis Ovalocytes ABG pH (7.35-7.45) ABG pCO2 (35-46) mmHg ABG pO2 (80-95) mmHg ABG HCO3 (19-24) mmol/L ABG O2 Saturation (90-95) % ABG Base Excess (-9-1.8) mEq/L Chai Test (Pos) Oxygen Given Sodium (136-145) mmol/L Potassium (3.5-5.1) mmol/L Chloride (98-107) mmol/L Carbon Dioxide (21-32) mmol/L Anion Gap (3-11) BUN (6-23) mg/dl Creatinine (0.6-1.2) mg/dl Est Cr Clr Drug Dosing Est GFR ( Amer) ml/min Est GFR (Non-Af Amer) ml/min BUN/Creatinine Ratio (10-20) Glucose (70-99(Fasting)) mg/dl Calcium (8.5-10.1) mg/dl Magnesium (1.7-2.4) mg/dl Total Bilirubin (0.2-1.0) mg/dl AST (13-39) U/L ALT (7-52) U/L Alkaline Phosphatase (34-104) U/L Troponin I High Sens (0-14) pg/ml B-Natriuretic Peptide 225 H (0-100) pg/ml Total Protein (6.0-8.3) gm/dl Albumin (3.4-5.0) gm/dl Globulin (2.5-4.0) gm/dl Albumin/Globulin Ratio (0.9-2) Lipase (11-82) U/L SARS-CoV-2, RNA, NAAT NEGATIVE (NEGATIVE) Blood Type O Positive Blood Type Recheck Antibody Screen NEGATIVE Crossmatch See Detail 06/15/22 Range/Units 19:29 WBC (4.8-10.8) K/ul RBC (3.93-5.22) M/uL Hgb (12.0-16.0) g/dl Hct (34.1-44.9) % MCV (80.0-100.0) fL MCH (25.0-34.0) pg MCHC (32.0-36.0) g/dL RDW Std Deviation (36.4-46.3) fL RDW Coeff of Gladis (11.5-14.5) % Plt Count (130-400) K/uL MPV (9.4-12.3) fL Immature Gran % (Auto) % Neut % (Auto) % Lymph % (Auto) % [place] % (Auto) % Eos % (Auto) % Baso % (Auto) % Neut # (Auto) (1.4-6.5) K/uL Lymph # (Auto) (1.2-3.4) K/uL [place] # (Auto) (0.24-0.82) K/uL Eos # (Auto) (0-0.50) K/uL Baso # (Auto) (0-0.2) K/uL Immature Gran # (Auto) (0.00-0.02) K/uL Hypochromasia Poikilocytosis Ovalocytes ABG pH (7.35-7.45) ABG pCO2 (35-46) mmHg ABG pO2 (80-95) mmHg ABG HCO3 (19-24) mmol/L ABG O2 Saturation (90-95) % ABG Base Excess (-9-1.8) mEq/L Chai Test (Pos) Oxygen Given Sodium (136-145) mmol/L Potassium (3.5-5.1) mmol/L Chloride (98-107) mmol/L Carbon Dioxide (21-32) mmol/L Anion Gap (3-11) BUN (6-23) mg/dl Creatinine (0.6-1.2) mg/dl Est Cr Clr Drug Dosing Est GFR ( Amer) ml/min Est GFR (Non-Af Amer) ml/min BUN/Creatinine Ratio (10-20) Glucose (70-99(Fasting)) mg/dl Calcium (8.5-10.1) mg/dl Magnesium (1.7-2.4) mg/dl Total Bilirubin (0.2-1.0) mg/dl AST (13-39) U/L ALT (7-52) U/L Alkaline Phosphatase (34-104) U/L Troponin I High Sens (0-14) pg/ml B-Natriuretic Peptide (0-100) pg/ml Total Protein (6.0-8.3) gm/dl Albumin (3.4-5.0) gm/dl Globulin (2.5-4.0) gm/dl Albumin/Globulin Ratio (0.9-2) Lipase (11-82) U/L SARS-CoV-2, RNA, NAAT (NEGATIVE) Blood Type Blood Type Recheck O Positive Antibody Screen Crossmatch Imaging Data Radiologist's Impression: Chest X-Ray 06/15/22 18:08 XR chest 1V portable HISTORY: Shortness of breath. COMPARISON: Chest 03/09/2021. FINDINGS: No pneumothorax. No pleural effusions. Emphysema and mild chronic interstitial thickening persists. The heart remains borderline enlarged. Calcifications within the aortic knob. IMPRESSION: No acute process. ACT 112: Negative or not required by law. Electronically signed by: Arjun Shultz M.D. 06/15/2022 6:21 PM ECG Data Attestation: I personally reviewed and interpreted this ECG as follows: Indication: + SOB/dyspnea Rate (beats per minute): 121 Rhythm: + sinus tachycardia ECG Intervals/blocks: + Normal QRS and + Normal QT ECG [place]: + Normal ECG ST segments: + Nonspecific ST abnormalities MDM Narrative An order was placed for continuous cardiac monitoring. The monitor shows a rate of _114_ with _sinus tachycardia_ rhythm. This is an 86 yo female brought in by EMS due to increased trouble breathing. Patient wears home O2 due to COPD hx. Sinus tachycardia noted initially as was tachypnea, however no overt hypoxia. She did have increased WOB and was given additional neb following bedside evaluation. Mild wheezing improved after neb and HR/RR/WOB all improved also. Labs revealed significant anemia, worse than those more recently seen in EMR. She denied melena/hematochezia. Low dose ASA daily, no other anticoagulation. Patient reported hx of anemia but doesn't currently follow with anyone for this. No obvious PNA or CHF on cxr. No clinical evidence of CHF. No prior cardiac hx. I discussed results and likely multifactorial reasons for SOB with pt and daughter at bedside. We discussed transfusion and she was in agreement and signed consent form. Case discussed with hospitalist for additional evaluation and mgmt. Mild troponin elevation I suspect is related to demand and WOB. I do not suspect ACS. I do not suspect PE. Impression & Plan Dyspnea, COPD exacerbation, Chronic respiratory failure with hypoxia, Anemia Discharge Plan Visit Data Chief Complaint: Shortness of Breath/Dyspnea Stated Complaint: SOB ED Provider: Blessing Pyle Discharge Problem: Dyspnea, COPD exacerbation, Chronic respiratory failure with hypoxia, Anemia Patient Disposition: Admitted As Inpatient Discharge Instructions Interventions: ED Discharge Assessment Last Done: 06/15/22 20:55
[2022-06-15 18:21] LABS: Basophils # (auto) 0.04 K/uL (0-0.2); Basophils % (auto) 0.4 %; Eosinophils # (auto) 0.17 K/uL (0-0.50); Eosinophils % (auto) 1.6 %; Hematocrit (blood only) 22.4 % (34.1-44.9); Immature Granulocytes # (auto) 0.04 K/uL (0.00-0.02); Immature Granulocytes % (auto) 0.4 %; Lymphocytes % (auto) 7.4 %; Mean Corpuscular Hemoglobin 26.3 pg (25.0-34.0); Mean Corpuscular Hgb Conc 31.3 g/dL (32.0-36.0); Mean Corpuscular Volume 84.2 fL (80.0-100.0); Mean Platelet Volume 10.4 fL (9.4-12.3); Monocytes # (auto) 0.65 K/uL (0.24-0.82); Neutrophils # (auto) 9.16 K/uL (1.4-6.5); Neutrophils % (auto) 84.2 %; Platelet Count 526 K/uL (130-400); RDW Coefficient of Variation 14.3 % (11.5-14.5); RDW Standard Deviation 43.8 fL (36.4-46.3); Red Blood Count 2.66 M/uL (3.93-5.22); White Blood Count 10.86 K/ul (4.8-10.8)
--- NOTE | 2022-06-15 18:22 | XRay Report ---
XR chest 1V portable HISTORY: Shortness of breath. COMPARISON: Chest 03/09/2021. FINDINGS: No pneumothorax. No pleural effusions. Emphysema and mild chronic interstitial thickening p ersists. The heart remains borderline enlarged. Calcifications within the aortic knob. IMPRESSION: No acute process. ACT 112: Negative or not required by law. Electronically signed by: Arjun Shultz M.D. 06/15/2022 6:21 PM
[2022-06-15 18:32] LABS: Base Excess ABG 5.6 mEq/L (-9-1.8); HCO3 ABG 31 mmol/L (19-24); Oxygen Saturation ABG 99.8 % (90-95); PCO2 ABG 45 mmHg (35-46); PO2 ABG 88 mmHg (80-95); pH ABG 7.44 (7.35-7.45)
[2022-06-15 18:33] LABS: Alanine Aminotransferase 12 U/L (7-52); Albumin Globulin Ratio 1.4 (0.9-2); Albumin Level 4.1 gm/dl (3.4-5.0); Alkaline Phosphatase 43 U/L (34-104); Anion Gap 9 (3-11); Aspartate Aminotransferase 19 U/L (13-39); BUN Creatinine Ratio 17.6 (10-20); Bilirubin,Total 0.4 mg/dl (0.2-1.0); Blood Urea Nitrogen 13 mg/dl (6-23); Calcium 9.4 mg/dl (8.5-10.1); Carbon Dioxide 28 mmol/L (21-32); Chloride 93 mmol/L (98-107); Est GFR (Non-African American) 73.4 ml/min; Globulin 2.9 gm/dl (2.5-4.0); Glucose 115 mg/dl (70-99(Fasting)); Lipase 36 U/L (11-82); Magnesium 1.8 mg/dl (1.7-2.4); Potassium 4.1 mmol/L (3.5-5.1); Sodium 130 mmol/L (136-145)
[2022-06-15 18:39] LABS: Allen Test POS (Pos)
[2022-06-15 18:39] LABS: Troponin I High Sensitivity 17.9 pg/ml (0-14)
[2022-06-15 18:40] LABS: Hypochromasia Present; Ovalocytes 1+; Poikilocytosis Present
[2022-06-15] MEDS ORDERED: SODIUM CHLORIDE 0.9% 250 ML IV PRN (18:58)
[2022-06-15] MEDS ORDERED: amLODIPine BESYLATE 5 MG TAB PO STA (19:46)
--- NOTE | 2022-06-15 19:55 | History & Physical Report ---
Date of Service June 15, 2022 Assessment & Plan (1) COPD exacerbation: Plan: History of severe COPD on home oxygen at a rate of 2.5 L/min Worsening condition for the last 3 days and is complicated by anemia Has exacerbation without any pneumonia We will continue with nebulized bronchodilators and steroid with Solu-Medrol ABG did not show any CO2 retention If the condition does not get any better will need to get pulmonary involvedshe sees Dr. Boyle as an outpatient (2) Chronic respiratory failure with hypoxia: Plan: As above Requiring more oxygen now with acute exacerbation of COPD (3) Dependence on continuous supplemental oxygen: Plan: Has been on 2.5 L/min at home (4) Chronic anemia: Plan: History of anemia and was seen by senior electronics engineer about 2 years ago Could be anemia of chronic disease/chronic GI blood loss/myelodysplasia Has not had any follow-up after that She denies any blood vomiting or any blood in the stool or any black stool Hemoglobin is 7 as of today and will receive 1 unit of blood transfusion Hemoccult will be tested and iron studies have been sent Monitor CBC (5) HTN (hypertension): Plan: History of hypertension Continue with current medication (6) High cholesterol: Plan: Continue the statin DVT prophylaxis Given the history of low hemoglobin we will hold any subcu heparin for now If there is no evidence of guaiac positive stool can start subcu heparin Aspirin is on hold as well and that can be started following negative stool test CODE STATUS DNR/DNI Case discussed with the daughter History of Present Illness Chief Complaint: Increasing shortness of breath and weakness for the last 3 days Primary Care Provider: Sy Camarillo MD She is an 86 years old female with significant past medical history of severe COPD on oxygen, pulmonary hypertension, chronic respiratory failure with hypoxia, hypertension, hyperlipidemia and chronic anemia apparently has been complaining of increasing shortness of breath for the last 3 days. She denies any cough or any phlegm, any fever and or chills, any chest pain and/or palpitation. She complains to have weakness and tiredness as well. No abdominal pain, nausea or vomiting and no history of hematemesis and/or melena. She was noted to have moderately shortness of breath at emergency room and hemoglobin noted to be 7.0. He was admitted to [facility] telemetry unit for continuation of care Allergies Allergy/AdvReac Type Severity Reaction Status Date / Time bee venom protein (honey bee) Allergy Mild RASH Verified 06/15/22 17:49 nickel AdvReac Mild Redness of Verified 06/15/22 17:49 Skin Home Medications Medication Instructions Recorded Confirmed Type amlodipine 10 mg tablet 10 mg PO DAILY 09/15/19 06/15/22 History enalapril maleate 10 mg tablet 10 mg PO DAILY 09/15/19 06/15/22 History epinephrine 0.3 mg/0.3 mL 0.3 mg IM UD PRN Allergic Reaction 09/15/19 06/15/22 History injection, auto-injector (EpiPen) simvastatin 20 mg tablet 20 mg PO QPM 09/15/19 06/15/22 History cholecalciferol (vitamin D3) 25 1,000 unit PO DAILY 10/11/19 06/15/22 History mcg (1,000 unit) chewable tablet (Vitamin D3) acetaminophen 325 mg tablet 325 mg PO QID PRN Pain 10/22/19 06/15/22 History aspirin 81 mg tablet,delayed 81 mg PO BID 03/09/21 06/15/22 History release sennosides 8.6 mg capsule (senna) 8.6 mg PO BID 03/09/21 06/15/22 History multivitamin 1 tab PO DAILY 11/30/21 06/15/22 History ipratropium 0.5 mg-albuterol 3 mg 3 ml inhalation Q8H PRN shortness 12/07/21 06/15/22 Rx (2.5 mg base)/3 mL nebulization of breath or wheezing #180 mL soln levalbuterol HCl 0.63 mg/3 mL 0.63 mg (3 mL) NEB Q6H PRN 12/14/21 06/15/22 Rx solution for nebulization shortness of breath or wheezing 30 days #480 mL arformoterol 15 mcg/2 mL solution 2 ml inhalation BID #120 mL 05/03/22 06/15/22 Rx for nebulization (Brovana) budesonide 0.25 mg/2 mL suspension 0.25 mg (2 mL) inhalation BID #60 05/03/22 06/15/22 Rx for nebulization mL pseudoephedrine HCl 120 mg 120 mg PO Q12H 07/20/22 09/01/22 History tablet,extended release (Sudafed 12 Hour) revefenacin 175 mcg/3 mL solution 175 mcg (3 mL) inhalation DAILY 05/03/22 06/15/22 Rx for nebulization (Yupelri) #90 mL fluticasone propionate 50 1 spray intranasal BID #16 grams 05/11/22 06/15/22 Rx mcg/actuation nasal spray,suspension ipratropium bromide 42 mcg (0.06 2 spray intranasal TID #15 mL 05/22/22 06/15/22 Rx %) nasal spray ipratropium bromide 0.02 % 0.5 mg (2.5 mL) inhalation Q6H PRN 06/07/22 06/15/22 Rx solution for inhalation shortness of breath or wheezing 30 days #300 mL Past Med/Surg History Medical History COPD, moderate High cholesterol HTN (hypertension) Surgical History H/O tubal ligation "1973" History of appendectomy S/P hip hemiarthroplasty Family History Other No pertinent family history Social History Smoking Status: Former smoker Second Hand Exposure: No; Hx Substance Use: No Preferred Language: Uzbek Communication Ability: Effective Display Carver Required: No Beliefs That Will Affect Care: None marital status: / Current Living Situation: Alone Feels Safe at Home: Yes Assistive Devices: Denture - Upper, Denture - Lower, Oxygen - Continuous and Walker Review of Systems Review of Systems: All systems reviewed and are unremarkable except as noted below Physical Exam Physical Exam: Lying in bed with moderate shortness of breath Constitutional: + ill appearing and + thin Eyes: PERRL, conjunctivae normal, anicteric sclerae ENMT: external ear and nose normal, oropharynx normal Neck: trachea midline, no thyromegaly Respiratory: + respiratory distress (Mild to moderate respiratory distress), + labored breathing (Minimal labored breathing) and + tachypneic; no cough Auscultation: + diminished lung sounds; no crackles and no wheezes Cardiovascular: Rate/Rhythm: regular rate, regular rhythm and + tachycardic Heart Sounds: normal S1 and normal S2; no murmur Extremities: + edema (Trace edema bilaterally) Gastrointestinal (Abdomen): Inspection/Auscultation: normal bowel sounds; abdomen not distended Percussion/Palpation: abdomen soft; abdomen nontender Musculoskeletal: No acute arthritis in any joint Neurologic: Alert, awake and oriented x3. No focal sensory or motor deficit appreciated. she is generally weak Lymphatic: no cervical or axillary lymphadenopathy Results & Data Results & Data ([facility]) Vital Signs (Past 12 Hours) Vital Signs Temp Pulse Resp BP Pulse Ox O2 Del Method O2 Flow Rate 06/15/22 17:41 37.0 C 115 H 26 H 176/91 H 95 Nasal Cannula 2.5 06/15/22 17:35 Nasal Cannula 2 Laboratory Results Short CBC 06/15/22 Range/Units 17:20 WBC 10.86 H (4.8-10.8) K/ul Hgb 7.0 L (12.0-16.0) g/dl Hct 22.4 L (34.1-44.9) % Plt Count 526 H (130-400) K/uL BMP 06/15/22 17:20 Sodium 130 L Potassium 4.1 Chloride 93 L Carbon Dioxide 28 BUN 13 Creatinine 0.74 Glucose 115 H Calcium 9.4 Liver Function 06/15/22 Range/Units 17:20 Total Bilirubin 0.4 (0.2-1.0) mg/dl AST 19 (13-39) U/L ALT 12 (7-52) U/L Alkaline Phosphatase 43 (34-104) U/L Albumin 4.1 (3.4-5.0) gm/dl Medications Administered Current Inpatient Medications Sodium Chloride (Nss) 250 mls @ 15 mls/hr IV .[id number] PRN PRN Reason: For Transfusion Stop: 06/16/22 04:58 Methylprednisolone (Methylprednisolone 40 Mg/Ml Vial) 40 mg IV BID STA Stop: 06/15/22 19:42 Methylprednisolone (Methylprednisolone 40 Mg/Ml Vial) 40 mg IV NOW STA Stop: 06/15/22 19:49 Code Status & VTE Plan VTE Prophylaxis Plan VTE Prophylaxis will be ordered: Yes
[2022-06-15] MEDS ORDERED: LEVALBUTEROL HCL 0.63 MG/3 ML NEB NEB PRN (21:19)
[2022-06-15] MEDS ORDERED: ACETAMINOPHEN 325 MG TAB PO PRN (21:19)
[2022-06-15] MEDS ORDERED: IPRATROPIUM BROMIDE NEB SOLN 0.02% 2.5 ML VIAL INH PRN (21:19)
[2022-06-15] MEDS ORDERED: ALBUT/IPRATROP 3MG/0.5MG NEB 3 ML VIAL INH PRN (21:23)
[2022-06-15] MEDS: FORMOTEROL 20 MCG/2 ML VIAL INH SCH (22:27)
[2022-06-15] MEDS: LEVALBUTEROL HCL 1.25 MG/3 ML NEB INH SCH (22:28)
[2022-06-15] MEDS: BUDESONIDE 0.25 MG/2 ML VIAL (PULMICORT) INH SCH (22:32)
[2022-06-15] MEDS: SENNA 8.6 MG TAB PO SCH (22:51)
[2022-06-15] MEDS: SIMVASTATIN 20 MG TAB PO SCH (22:52)
[2022-06-15] MEDS: FLUTICASONE PROPIONATE NA SPR 16 GM BTL NAE SCH (22:53)
[2022-06-15] MEDS: IPRATROPIUM BROMIDE NASAL SPRAY 0.06% 15ML NAE SCH (22:54)
[2022-06-16 06:22] LABS: Basophils # (auto) 0.01 K/uL (0-0.2); Basophils % (auto) 0.2 %; Hematocrit (blood only) 27.1 % (34.1-44.9); Hemoglobin 8.6 g/dl (12.0-16.0); Immature Granulocytes # (auto) 0.02 K/uL (0.00-0.02); Immature Granulocytes % (auto) 0.4 %; Lymphocytes # (auto) 0.34 K/uL (1.2-3.4); Lymphocytes % (auto) 7.5 %; Mean Corpuscular Hemoglobin 26.3 pg (25.0-34.0); Mean Corpuscular Hgb Conc 31.7 g/dL (32.0-36.0); Mean Corpuscular Volume 82.9 fL (80.0-100.0); Mean Platelet Volume 9.7 fL (9.4-12.3); Monocytes # (auto) 0.11 K/uL (0.24-0.82); Monocytes % (auto) 2.4 %; Neutrophils # (auto) 4.07 K/uL (1.4-6.5); Neutrophils % (auto) 89.5 %; Platelet Count 474 K/uL (130-400); RDW Coefficient of Variation 13.9 % (11.5-14.5); Red Blood Count 3.27 M/uL (3.93-5.22); White Blood Count 4.55 K/ul (4.8-10.8)
[2022-06-16 06:47] LABS: BUN Creatinine Ratio 16.7 (10-20); Calcium 9.4 mg/dl (8.5-10.1); Creatinine Clr Calc Pharmacy 52.4 ml/min; Est GFR (African American) 92.7 ml/min; Potassium 3.9 mmol/L (3.5-5.1)
[2022-06-16 07:02] LABS: Ferritin 5.7 ng/ml (8-388)
[2022-06-16 07:05] LABS: Folate (Folic Acid) > 22.30 ng/ml (>5.38)
[2022-06-16 07:06] LABS: Vitamin B12 327 pg/ml (180-914)
[2022-06-16] MEDS: FORMOTEROL 20 MCG/2 ML VIAL INH SCH ×2 (07:24→19:14)
[2022-06-16] MEDS: BUDESONIDE 0.25 MG/2 ML VIAL (PULMICORT) INH SCH ×2 (07:25→19:14)
[2022-06-16] MEDS: methylPREDNISolone 40 MG in SYRINGE 0 ML IV SCH ×2 (08:40→21:23)
[2022-06-16] MEDS: IPRATROPIUM BROMIDE NASAL SPRAY 0.06% 15ML NAE SCH ×3 (08:40→20:30)
[2022-06-16] MEDS: FLUTICASONE PROPIONATE NA SPR 16 GM BTL NAE SCH ×2 (08:40→20:30)
[2022-06-16] MEDS: amLODIPine BESYLATE 5 MG TAB PO SCH (08:41)
[2022-06-16] MEDS: SENNA 8.6 MG TAB PO SCH ×2 (08:41→20:28)
[2022-06-16] MEDS: ENALAPRIL MALEATE 10 MG TAB PO SCH (08:41)
[2022-06-16] MEDS: CHOLECALCIFEROL 1,000 UNITS 25 MCG TAB PO SCH (08:41)
[2022-06-16] MEDS: MULTIVITAMIN TAB PO SCH (08:41)
--- NOTE | 2022-06-16 08:48 | Hospitalist Progress Note ---
Date of Service June 16, 2022 Assessment & Plan (1) COPD exacerbation: Plan: History of severe COPD on home oxygen at a rate of 2.5 L/min Worsening condition for the last 3 days and is complicated by anemia Has exacerbation without any pneumonia We will continue with nebulized bronchodilators and steroid with Solu-Medrol ABG did not show any CO2 retention If the condition does not get any better will need to get pulmonary involvedshe sees Dr. Boyle/ Dr. Buchanan as an outpatient (2) Chronic respiratory failure with hypoxia: Plan: As above Requiring more oxygen now with acute exacerbation of COPD (3) Dependence on continuous supplemental oxygen: Plan: Has been on 2.5 L/min at home (4) Chronic anemia: Plan: History of anemia and was seen by flipping machine operator about 2 years ago (Dr. Rosales) Could be anemia of chronic disease/chronic GI blood loss/myelodysplasia Has not had any follow-up after that - plan was for bone marrow biopsy if anemia worsens She denies any blood vomiting or any blood in the stool or any black stool Hemoglobin 7 on admission, received 1 unit of blood transfusion Hgb now improved to 8.6 Hemoccult will be tested and iron studies have been sent FOBT - no results yet as pt had no stool yet folic acid, B12 - wnl iron level wnl, ferritin low Monitor CBC 06/16 - pt clinically improved - ambulating, and back on her home oxygen of 2.5L Troponin elevation - no chest pain -likely secondary to above -will repeat troponin, if still rises, will check echo (5) HTN (hypertension): Plan: History of hypertension Continue with current medication (6) High cholesterol: Plan: Continue the statin DVT prophylaxis Given the history of low hemoglobin we will hold any subcu heparin for now If there is no evidence of guaiac positive stool can start subcu heparin Aspirin is on hold as well and that can be started following negative stool test CODE STATUS DNR/DNI Admitting provider discussed with the daughter Admission and Anticipated Discharge Date Admission Date: June 15, 2022 Subjective Pt seen in follow up of shortness of breath, anemia hx of COPD, chronic resp. failure, hx of anemia received 1 unit of pRBC yesterday on admission, Hgb improved Centimeters in bed, in no acute distress, on supplemental oxygen Reports feeling much better, however still somewhat short of breath Says she was able to ambulate to the bathroom Denies any chest pain Also denies any palpitations, fevers chills, abdominal pain, nausea vomiting FOBT ordered - pt had no BM yet Pt reports having brown stools no black/dark stools Review of Systems Review of Systems: All systems reviewed & are unremarkable except as noted in Subjective Physical Exam Physical Exam: Physical Exam: Constitutional:L elderly, thin + ch ronically ill appe aring F in NAD Eyes: PERRL, EOMI, conju nctivae normal, an icteric sclerae ENMT: external ear and n ose normal, oropha rynx normal Neck: trachea midline Respiratory: + diminished lung sounds; no crackl es and no wheezes Cardiovascular:L regular rate, regu lar rhythm, normal S1 and normal S2; no murmur Extrem ities: no edema Gastrointestinal ( Abdomen):L Inspection/Auscult ation: normal nevaeh l sounds; abdomen not distended Per cussion/Palpation: abdomen soft; abd omen nontender Musculoskeletal: moves extremities Neurologic: Alert, awake and o riented x3.Speech fluent, no facial asymmetry, moves extremities Results & Data Results & Data ([facility]) Vital Signs (Past 12 Hours) Vital Signs Temp Pulse Pulse Pulse Resp BP BP 06/16/22 07:55 36.4 C L 93 H 19 161/76 H 06/16/22 07:25 93 H 16 06/16/22 03:21 36.4 C L 110 H 18 160/76 H 06/16/22 02:15 36.9 C 103 H 18 148/72 H 06/16/22 01:00 06/16/22 01:15 36.8 C 123 H 18 165/71 H 06/16/22 00:15 36.8 C 114 H 18 156/70 H 06/15/22 23:45 36.7 C 118 H 18 161/69 H 06/16/22 01:31 06/15/22 23:37 36.5 C 108 H 20 182/79 H 06/15/22 23:30 36.8 C 119 H 18 164/74 H 06/15/22 23:10 36.4 C L 115 H 18 182/79 H 06/15/22 22:33 101 H 20 Pulse Ox O2 Del Method O2 Flow Rate 06/16/22 07:55 98 Nasal Cannula 2.5 06/16/22 07:25 95 Nasal Cannula 2.5 06/16/22 03:21 95 Nasal Cannula 2 06/16/22 02:15 94 2.5 06/16/22 01:00 Nasal Cannula 2.5 06/16/22 01:15 93 2.5 06/16/22 00:15 95 2.5 06/15/22 23:45 95 2.5 06/16/22 01:31 Nasal Cannula 2.5 06/15/22 23:37 97 Nasal Cannula 4 06/15/22 23:30 95 2 06/15/22 23:10 97 4 06/15/22 22:33 98 Nasal Cannula 6 Laboratory Results 06/16/22 06/16/22 06/16/22 Range/Units 05:42 05:42 05:42 WBC (4.8-10.8) K/ul RBC (3.93-5.22) M/uL Hgb (12.0-16.0) g/dl Hct (34.1-44.9) % MCV (80.0-100.0) fL MCH (25.0-34.0) pg MCHC (32.0-36.0) g/dL RDW Std Deviation (36.4-46.3) fL RDW Coeff of Gladis (11.5-14.5) % Plt Count (130-400) K/uL MPV (9.4-12.3) fL Immature Gran % (Auto) % Neut % (Auto) % Lymph % (Auto) % [place] % (Auto) % Eos % (Auto) % Baso % (Auto) % Neut # (Auto) (1.4-6.5) K/uL Lymph # (Auto) (1.2-3.4) K/uL [place] # (Auto) (0.24-0.82) K/uL Eos # (Auto) (0-0.50) K/uL Baso # (Auto) (0-0.2) K/uL Immature Gran # (Auto) (0.00-0.02) K/uL Hypochromasia Poikilocytosis Ovalocytes ABG pH (7.35-7.45) ABG pCO2 (35-46) mmHg ABG pO2 (80-95) mmHg ABG HCO3 (19-24) mmol/L ABG O2 Saturation (90-95) % ABG Base Excess (-9-1.8) mEq/L Chai Test (Pos) Oxygen Given Sodium 132 L (136-145) mmol/L Potassium 3.9 (3.5-5.1) mmol/L Chloride 95 L (98-107) mmol/L Carbon Dioxide 30 (21-32) mmol/L Anion Gap 7 (3-11) BUN 11 (6-23) mg/dl Creatinine 0.66 (0.6-1.2) mg/dl Est Cr Clr Drug Dosing 52.4 Est GFR ( Amer) 92.7 ml/min Est GFR (Non-Af Amer) 80.0 ml/min BUN/Creatinine Ratio 16.7 (10-20) Glucose 145 H (70-99(Fasting)) mg/dl Calcium 9.4 (8.5-10.1) mg/dl Magnesium (1.7-2.4) mg/dl Iron 68 (35-150) mcg/dl Unsaturated IBC 349 (155-355) mcg/dl Ferritin 5.7 L (8-388) ng/ml Total Bilirubin (0.2-1.0) mg/dl AST (13-39) U/L ALT (7-52) U/L Alkaline Phosphatase (34-104) U/L Troponin I High Sens Pending (0-14) pg/ml B-Natriuretic Peptide (0-100) pg/ml Total Protein (6.0-8.3) gm/dl Albumin (3.4-5.0) gm/dl Globulin (2.5-4.0) gm/dl Albumin/Globulin Ratio (0.9-2) Lipase (11-82) U/L Vitamin B12 327 (180-914) pg/ml Folate > 22.30 (>5.38) ng/ml SARS-CoV-2, RNA, NAAT (NEGATIVE) Blood Type Blood Type Recheck Antibody Screen Crossmatch 06/16/22 06/15/22 06/15/22 Range/Units 05:42 19:29 19:26 WBC 4.55 L D (4.8-10.8) K/ul RBC 3.27 L (3.93-5.22) M/uL Hgb 8.6 L (12.0-16.0) g/dl Hct 27.1 L (34.1-44.9) % MCV 82.9 (80.0-100.0) fL MCH 26.3 (25.0-34.0) pg MCHC 31.7 L (32.0-36.0) g/dL RDW Std Deviation 42.0 (36.4-46.3) fL RDW Coeff of Gladis 13.9 (11.5-14.5) % Plt Count 474 H (130-400) K/uL MPV 9.7 (9.4-12.3) fL Immature Gran % (Auto) 0.4 % Neut % (Auto) 89.5 % Lymph % (Auto) 7.5 % [place] % (Auto) 2.4 % Eos % (Auto) 0.0 % Baso % (Auto) 0.2 % Neut # (Auto) 4.07 (1.4-6.5) K/uL Lymph # (Auto) 0.34 L (1.2-3.4) K/uL [place] # (Auto) 0.11 L (0.24-0.82) K/uL Eos # (Auto) 0.00 (0-0.50) K/uL Baso # (Auto) 0.01 (0-0.2) K/uL Immature Gran # (Auto) 0.02 (0.00-0.02) K/uL Hypochromasia Poikilocytosis Ovalocytes ABG pH (7.35-7.45) ABG pCO2 (35-46) mmHg ABG pO2 (80-95) mmHg ABG HCO3 (19-24) mmol/L ABG O2 Saturation (90-95) % ABG Base Excess (-9-1.8) mEq/L Chai Test (Pos) Oxygen Given Sodium (136-145) mmol/L Potassium (3.5-5.1) mmol/L Chloride (98-107) mmol/L Carbon Dioxide (21-32) mmol/L Anion Gap (3-11) BUN (6-23) mg/dl Creatinine (0.6-1.2) mg/dl Est Cr Clr Drug Dosing Est GFR ( Amer) ml/min Est GFR (Non-Af Amer) ml/min BUN/Creatinine Ratio (10-20) Glucose (70-99(Fasting)) mg/dl Calcium (8.5-10.1) mg/dl Magnesium (1.7-2.4) mg/dl Iron (35-150) mcg/dl Unsaturated IBC (155-355) mcg/dl Ferritin (8-388) ng/ml Total Bilirubin (0.2-1.0) mg/dl AST (13-39) U/L ALT (7-52) U/L Alkaline Phosphatase (34-104) U/L Troponin I High Sens (0-14) pg/ml B-Natriuretic Peptide (0-100) pg/ml Total Protein (6.0-8.3) gm/dl Albumin (3.4-5.0) gm/dl Globulin (2.5-4.0) gm/dl Albumin/Globulin Ratio (0.9-2) Lipase (11-82) U/L Vitamin B12 (180-914) pg/ml Folate (>5.38) ng/ml SARS-CoV-2, RNA, NAAT (NEGATIVE) Blood Type O Positive Blood Type Recheck O Positive Antibody Screen NEGATIVE Crossmatch See Detail 06/15/22 06/15/22 06/15/22 Range/Units 19:07 18:16 18:16 WBC (4.8-10.8) K/ul RBC (3.93-5.22) M/uL Hgb (12.0-16.0) g/dl Hct (34.1-44.9) % MCV (80.0-100.0) fL MCH (25.0-34.0) pg MCHC (32.0-36.0) g/dL RDW Std Deviation (36.4-46.3) fL RDW Coeff of Gladis (11.5-14.5) % Plt Count (130-400) K/uL MPV (9.4-12.3) fL Immature Gran % (Auto) % Neut % (Auto) % Lymph % (Auto) % [place] % (Auto) % Eos % (Auto) % Baso % (Auto) % Neut # (Auto) (1.4-6.5) K/uL Lymph # (Auto) (1.2-3.4) K/uL [place] # (Auto) (0.24-0.82) K/uL Eos # (Auto) (0-0.50) K/uL Baso # (Auto) (0-0.2) K/uL Immature Gran # (Auto) (0.00-0.02) K/uL Hypochromasia Poikilocytosis Ovalocytes ABG pH 7.44 (7.35-7.45) ABG pCO2 45 (35-46) mmHg ABG pO2 88 (80-95) mmHg ABG HCO3 31 H (19-24) mmol/L ABG O2 Saturation 99.8 H (90-95) % ABG Base Excess 5.6 H (-9-1.8) mEq/L Chai Test POS (Pos) Oxygen Given 2.5L Sodium (136-145) mmol/L Potassium (3.5-5.1) mmol/L Chloride (98-107) mmol/L Carbon Dioxide (21-32) mmol/L Anion Gap (3-11) BUN (6-23) mg/dl Creatinine (0.6-1.2) mg/dl Est Cr Clr Drug Dosing Est GFR ( Amer) ml/min Est GFR (Non-Af Amer) ml/min BUN/Creatinine Ratio (10-20) Glucose (70-99(Fasting)) mg/dl Calcium (8.5-10.1) mg/dl Magnesium (1.7-2.4) mg/dl Iron (35-150) mcg/dl Unsaturated IBC (155-355) mcg/dl Ferritin (8-388) ng/ml Total Bilirubin (0.2-1.0) mg/dl AST (13-39) U/L ALT (7-52) U/L Alkaline Phosphatase (34-104) U/L Troponin I High Sens (0-14) pg/ml B-Natriuretic Peptide 225 H (0-100) pg/ml Total Protein (6.0-8.3) gm/dl Albumin (3.4-5.0) gm/dl Globulin (2.5-4.0) gm/dl Albumin/Globulin Ratio (0.9-2) Lipase (11-82) U/L Vitamin B12 (180-914) pg/ml Folate (>5.38) ng/ml SARS-CoV-2, RNA, NAAT NEGATIVE (NEGATIVE) Blood Type Blood Type Recheck Antibody Screen Crossmatch 06/15/22 06/15/22 Range/Units 17:20 17:20 WBC 10.86 H (4.8-10.8) K/ul RBC 2.66 L (3.93-5.22) M/uL Hgb 7.0 L (12.0-16.0) g/dl Hct 22.4 L (34.1-44.9) % MCV 84.2 (80.0-100.0) fL MCH 26.3 (25.0-34.0) pg MCHC 31.3 L (32.0-36.0) g/dL RDW Std Deviation 43.8 (36.4-46.3) fL RDW Coeff of Gladis 14.3 (11.5-14.5) % Plt Count 526 H (130-400) K/uL MPV 10.4 (9.4-12.3) fL Immature Gran % (Auto) 0.4 % Neut % (Auto) 84.2 % Lymph % (Auto) 7.4 % [place] % (Auto) 6.0 % Eos % (Auto) 1.6 % Baso % (Auto) 0.4 % Neut # (Auto) 9.16 H (1.4-6.5) K/uL Lymph # (Auto) 0.80 L (1.2-3.4) K/uL [place] # (Auto) 0.65 (0.24-0.82) K/uL Eos # (Auto) 0.17 (0-0.50) K/uL Baso # (Auto) 0.04 (0-0.2) K/uL Immature Gran # (Auto) 0.04 H (0.00-0.02) K/uL Hypochromasia Present Poikilocytosis Present Ovalocytes 1+ ABG pH (7.35-7.45) ABG pCO2 (35-46) mmHg ABG pO2 (80-95) mmHg ABG HCO3 (19-24) mmol/L ABG O2 Saturation (90-95) % ABG Base Excess (-9-1.8) mEq/L Chai Test (Pos) Oxygen Given Sodium 130 L (136-145) mmol/L Potassium 4.1 (3.5-5.1) mmol/L Chloride 93 L (98-107) mmol/L Carbon Dioxide 28 (21-32) mmol/L Anion Gap 9 (3-11) BUN 13 (6-23) mg/dl Creatinine 0.74 (0.6-1.2) mg/dl Est Cr Clr Drug Dosing Not Reportable Est GFR ( Amer) 85.0 ml/min Est GFR (Non-Af Amer) 73.4 ml/min BUN/Creatinine Ratio 17.6 (10-20) Glucose 115 H (70-99(Fasting)) mg/dl Calcium 9.4 (8.5-10.1) mg/dl Magnesium 1.8 (1.7-2.4) mg/dl Iron (35-150) mcg/dl Unsaturated IBC (155-355) mcg/dl Ferritin (8-388) ng/ml Total Bilirubin 0.4 (0.2-1.0) mg/dl AST 19 (13-39) U/L ALT 12 (7-52) U/L Alkaline Phosphatase 43 (34-104) U/L Troponin I High Sens 17.9 H (0-14) pg/ml B-Natriuretic Peptide (0-100) pg/ml Total Protein 7.0 (6.0-8.3) gm/dl Albumin 4.1 (3.4-5.0) gm/dl Globulin 2.9 (2.5-4.0) gm/dl Albumin/Globulin Ratio 1.4 (0.9-2) Lipase 36 (11-82) U/L Vitamin B12 (180-914) pg/ml Folate (>5.38) ng/ml SARS-CoV-2, RNA, NAAT (NEGATIVE) Blood Type Blood Type Recheck Antibody Screen Crossmatch Medications Administered Current Inpatient Medications Acetaminophen (Acetaminophen 325 Mg Tab) 325 mg PO QID PRN PRN Reason: Pain Stop: 07/15/22 21:18 Albuterol (Albut/Ipratrop 3mg/0.5mg Neb 3 Ml Vial) 3 ml INH Q6R PRN; Protocol PRN Reason: shortness of breath or wheezing Stop: 07/15/22 21:22 Amlodipine Besylate (Amlodipine Besylate 5 Mg Tab) 10 mg PO DAILY SHARITA Stop: 07/16/22 08:59 Last Admin: 06/16/22 08:41 Dose: 10 mg Budesonide (Budesonide 0.25 Mg/2 Ml Vial (Pulmicort)) 0.25 mg INH BIDR [facility] Stop: 07/15/22 21:29 Last Admin: 06/16/22 07:25 Dose: 0.25 mg Enalapril Maleate (Enalapril Maleate 10 Mg Tab) 10 mg PO DAILY SHARITA Stop: 07/16/22 08:59 Last Admin: 06/16/22 08:41 Dose: 10 mg Fluticasone Propionate (Fluticasone Propionate Na Spr 16 Gm Btl) 1 sprays HOLLIS BID SHARITA Stop: 07/15/22 21:29 Last Admin: 06/16/22 08:40 Dose: 1 sprays Formoterol Fumarate (Formoterol 20 Mcg/2 Ml Vial) 20 mcg INH BIDR [facility] Stop: 07/15/22 21:29 Last Admin: 06/16/22 07:24 Dose: 20 mcg Methylprednisolone 40 mg/ (Syringe) 0.64 mls @ 1.5 mls/min IV BID SHARITA Stop: 07/16/22 08:59 Last Admin: 06/16/22 08:40 Dose: 1.5 mls/min Ipratropium [place] (Ipratropium [place] Nasal [place] 0.06% 15ml) 2 sprays HOLLIS TID SHARITA Stop: 07/15/22 21:29 Last Admin: 06/16/22 08:40 Dose: 2 sprays Ipratropium [place] (Ipratropium [place] Neb Soln 0.02% 2.5 Ml Vial) 0.5 mg INH Q6R PRN PRN Reason: shortness of breath or wheezing Stop: 07/15/22 21:18 Levalbuterol HCl (Levalbuterol Hcl 0.63 Mg/3 Ml Neb) 0.63 mg NEB Q6R PRN; Protocol PRN Reason: shortness of breath or wheezing Stop: 07/15/22 21:18 Levalbuterol HCl (Levalbuterol Hcl 1.25 Mg/3 Ml Neb) 1.25 mg INH HS [facility] Stop: 07/15/22 21:29 Last Admin: 06/15/22 22:28 Dose: 1.25 mg Miscellaneous (Order Awaiting Action) 1 each N/A QS [facility] Stop: 07/16/22 00:00 Last Admin: 06/16/22 08:40 Dose: Not Given Multivitamins (Multivitamin Tab) 1 tab PO DAILY SHARITA Stop: 07/16/22 08:59 Last Admin: 06/16/22 08:41 Dose: 1 tab Sennosides (Senna 8.6 Mg Tab) 8.6 mg PO BID SHARITA Stop: 07/15/22 21:29 Last Admin: 06/16/22 08:41 Dose: 8.6 mg Simvastatin (Simvastatin 20 Mg Tab) 20 mg PO QPM [facility] Stop: 07/15/22 21:29 Last Admin: 06/15/22 22:52 Dose: 20 mg Vitamin D (Cholecalciferol 1,000 Units 25 Mcg Tab) 1,000 units PO DAILY SHARITA Stop: 07/16/22 08:59 Last Admin: 06/16/22 08:41 Dose: 1,000 units
--- NOTE | 2022-06-16 14:50 | Electrocardiogram Report ---
Test Reason : Blood Pressure : / mmHG Vent. Rate : 121 BPM Atrial Rate : 121 BPM P-R Int : 158 ms QRS Dur : 080 ms QT Int : 286 ms P-R-T Axes : 070 069 055 degrees QTc Int : 406 ms Poor data quality, interpretation may be adversely affected Sinus tachycardia Minimal voltage criteria for LVH, may be normal variant Borderline ECG When compared with ECG of 15-OCT-2019 18:18, Premature atrial complexes are no longer Present Nonspecific T wave abnormality no longer evident in Lateral leads Confirmed by Redd Sanchez [id number] on 06/16/2022 2:50:19 PM Referred By: REFERRED SELF Confirmed By:Zack Sanchez
--- NOTE | 2022-06-16 14:56 | Electrocardiogram Report ---
Test Reason : Blood Pressure : / mmHG Vent. Rate : 098 BPM Atrial Rate : 098 BPM P-R Int : 158 ms QRS Dur : 078 ms QT Int : 344 ms P-R-T Axes : 083 078 079 degrees QTc Int : 439 ms Sinus rhythm with Premature supraventricular complexes Minimal voltage criteria for LVH, may be normal variant Borderline ECG When compared with ECG of 15-JUN-2022 17:26, (unconfirmed) Premature supraventricular complexes are now Present Confirmed by Redd Sanchez ([id number] on 06/16/2022 2:56:05 PM Referred By: REFERRED SELF Confirmed By:Zack Sanchez
[2022-06-16] MEDS: LEVALBUTEROL HCL 1.25 MG/3 ML NEB INH SCH (19:14)
[2022-06-16] MEDS: SIMVASTATIN 20 MG TAB PO SCH (20:29)
[2022-06-17 05:46] LABS: Hemoglobin 7.8 g/dl (12.0-16.0); Mean Corpuscular Hemoglobin 26.4 pg (25.0-34.0); Mean Corpuscular Hgb Conc 32.5 g/dL (32.0-36.0); Mean Corpuscular Volume 81.4 fL (80.0-100.0); Mean Platelet Volume 9.1 fL (9.4-12.3); Platelet Count 431 K/uL (130-400); RDW Coefficient of Variation 14.3 % (11.5-14.5); RDW Standard Deviation 42.1 fL (36.4-46.3); Red Blood Count 2.95 M/uL (3.93-5.22); White Blood Count 6.11 K/ul (4.8-10.8)
[2022-06-17 06:14] LABS: Creatinine Clr Calc Pharmacy 46.2 ml/min; Est GFR (African American) 83.7 ml/min; Est GFR (Non-African American) 72.2 ml/min; Phosphorus 4.3 mg/dl (2.5-4.9); Potassium 4.3 mmol/L (3.5-5.1)
[2022-06-17] MEDS: FORMOTEROL 20 MCG/2 ML VIAL INH SCH ×2 (07:14→19:02)
[2022-06-17] MEDS: BUDESONIDE 0.25 MG/2 ML VIAL (PULMICORT) INH SCH ×2 (07:14→19:06)
--- NOTE | 2022-06-17 07:30 | Hospitalist Progress Note ---
Date of Service June 17, 2022 Assessment & Plan (1) COPD exacerbation: Plan: History of severe COPD on home oxygen at a rate of 2.5 L/min Worsening condition for the last 3 days and is complicated by anemia Has exacerbation without any pneumonia We will continue with nebulized bronchodilators and steroid with Solu-Medrol ABG did not show any CO2 retention If the condition does not get any better will need to get pulmonary involvedshe sees Dr. Boyle/ Dr. Buchanan as an outpatient 06/17 Clinically much improved. Breathing comfortably on baseline O2. (2) Chronic respiratory failure with hypoxia: Plan: As above Requiring more oxygen on admission with acute exacerbation of COPD (3) Dependence on continuous supplemental oxygen: Plan: Has been on 2.5 L/min at home (4) Chronic anemia: Plan: History of anemia and was seen by final dressing cutter about 2 years ago (Dr. Rosales) Could be anemia of chronic disease/chronic GI blood loss/myelodysplasia Has not had any follow-up after that - plan was for bone marrow biopsy if anemia worsens She denies any blood vomiting or any blood in the stool or any black stool Hemoglobin 7 on admission, received 1 unit of blood transfusion Hgb now 7.8 Hemoccult POSITIVE today (06/17), ferritin low, will consult GI, NPO after MN folic acid, B12 - wnl iron level wnl, ferritin low Monitor CBC Troponin elevation - no chest pain - likely secondary to above - obtained echo - EF 65-70%, no WM abnormality (5) HTN (hypertension): Plan: History of hypertension Continue with current medication (6) High cholesterol: Plan: Continue the statin DVT prophylaxis Given the history of low hemoglobin we will hold any subcu heparin for now If there is no evidence of guaiac positive stool can start subcu heparin Aspirin is on hold as well and that can be started following negative stool test CODE STATUS DNR/DNI Admitting provider discussed with the daughter Admission and Anticipated Discharge Date Admission Date: June 15, 2022 Subjective Pt seen in follow up of shortness of breath, anemia hx of COPD, chronic resp. failure, hx of anemia received 1 unit of pRBC on admission Pt is sitting up in chair in no acute distress, on supplemental oxygen- at baseline Reports feeling much better, breathing seems to be back to baseline Says she ambulates to the bathroom w/o difficulty Denies any chest pain Also denies any palpitations, fevers chills, abdominal pain, nausea vomiting Pt reports having brown stools no black/dark stools but FOBT positive today Review of Systems Review of Systems: All systems reviewed & are unremarkable except as noted in Subjective Physical Exam Physical Exam: Physical Exam: Constitutional:L elderly, thin + ch ronically ill appe aring F in NAD Eyes: PERRL, EOMI, conju nctivae normal, an icteric sclerae ENMT: external ear and n ose normal, oropha rynx normal Neck: trachea midline Respiratory: + diminished lung sounds; no crackl es and no wheezes Cardiovascular:L regular rate, regu lar rhythm, normal S1 and normal S2; no murmur Extrem ities: no edema Gastrointestinal ( Abdomen): Inspection/Auscult ation: normal nevaeh l sounds; abdomen not distended Per cussion/Palpation: abdomen soft; abd omen nontender Musculoskeletal: moves extremities Neurologic: Alert, awake and o riented x3.Speech fluent, no facial asymmetry, moves extremities Results & Data Results & Data ([facility]) Vital Signs (Past 12 Hours) Vital Signs Temp Pulse Pulse Resp BP Pulse Ox O2 Del Method 06/17/22 07:18 82 06/16/22 22:30 90 06/17/22 05:31 Nasal Cannula 06/17/22 03:59 36.5 C 92 H 18 156/77 H 93 Nasal Cannula 06/16/22 23:11 36.6 C 94 H 18 172/58 H 97 Nasal Cannula 06/16/22 20:13 36.4 C L 105 H 18 147/65 H 97 Nasal Cannula O2 Flow Rate 06/17/22 07:18 06/16/22 22:30 06/17/22 05:31 2.5 06/17/22 03:59 2.5 06/16/22 23:11 06/16/22 20:13 2.5 Laboratory Results 06/17/22 06/17/22 06/16/22 Range/Units 05:36 05:36 17:03 WBC 6.11 (4.8-10.8) K/ul RBC 2.95 L (3.93-5.22) M/uL Hgb 7.8 L (12.0-16.0) g/dl Hct 24.0 L (34.1-44.9) % MCV 81.4 (80.0-100.0) fL MCH 26.4 (25.0-34.0) pg MCHC 32.5 (32.0-36.0) g/dL RDW Std Deviation 42.1 (36.4-46.3) fL RDW Coeff of Gladis 14.3 (11.5-14.5) % Plt Count 431 H (130-400) K/uL MPV 9.1 L (9.4-12.3) fL Sodium 131 L (136-145) mmol/L Potassium 4.3 (3.5-5.1) mmol/L Chloride 95 L (98-107) mmol/L Carbon Dioxide 31 (21-32) mmol/L Anion Gap 5 (3-11) BUN 18 (6-23) mg/dl Creatinine 0.75 (0.6-1.2) mg/dl Est Cr Clr Drug Dosing 46.2 ml/min Est GFR ( Amer) 83.7 ml/min Est GFR (Non-Af Amer) 72.2 ml/min BUN/Creatinine Ratio 24.0 H (10-20) Glucose 132 H (70-99(Fasting)) mg/dl Calcium 9.0 (8.5-10.1) mg/dl Phosphorus 4.3 (2.5-4.9) mg/dl Magnesium 2.0 (1.7-2.4) mg/dl Troponin I High Sens 34.6 H (0-14) pg/ml Procalcitonin (0-0.5) ng/ml 06/16/22 06/16/22 Range/Units 05:42 05:42 WBC (4.8-10.8) K/ul RBC (3.93-5.22) M/uL Hgb (12.0-16.0) g/dl Hct (34.1-44.9) % MCV (80.0-100.0) fL MCH (25.0-34.0) pg MCHC (32.0-36.0) g/dL RDW Std Deviation (36.4-46.3) fL RDW Coeff of Gladis (11.5-14.5) % Plt Count (130-400) K/uL MPV (9.4-12.3) fL Sodium (136-145) mmol/L Potassium (3.5-5.1) mmol/L Chloride (98-107) mmol/L Carbon Dioxide (21-32) mmol/L Anion Gap (3-11) BUN (6-23) mg/dl Creatinine (0.6-1.2) mg/dl Est Cr Clr Drug Dosing ml/min Est GFR ( Amer) ml/min Est GFR (Non-Af Amer) ml/min BUN/Creatinine Ratio (10-20) Glucose (70-99(Fasting)) mg/dl Calcium (8.5-10.1) mg/dl Phosphorus (2.5-4.9) mg/dl Magnesium (1.7-2.4) mg/dl Troponin I High Sens 32.9 H D (0-14) pg/ml Procalcitonin < 0.05 (0-0.5) ng/ml Medications Administered Current Inpatient Medications Acetaminophen (Acetaminophen 325 Mg Tab) 325 mg PO QID PRN PRN Reason: Pain Stop: 07/15/22 21:18 Last Admin: 06/16/22 10:18 Dose: 325 mg Albuterol (Albut/Ipratrop 3mg/0.5mg Neb 3 Ml Vial) 3 ml INH Q6R PRN; Protocol PRN Reason: shortness of breath or wheezing Stop: 07/15/22 21:22 Amlodipine Besylate (Amlodipine Besylate 5 Mg Tab) 10 mg PO DAILY SHARITA Stop: 07/16/22 08:59 Last Admin: 06/16/22 08:41 Dose: 10 mg Budesonide (Budesonide 0.25 Mg/2 Ml Vial (Pulmicort)) 0.25 mg INH BIDR SHARITA Stop: 07/15/22 21:29 Last Admin: 06/17/22 07:14 Dose: 0.25 mg Enalapril Maleate (Enalapril Maleate 10 Mg Tab) 10 mg PO DAILY SHARITA Stop: 07/16/22 08:59 Last Admin: 06/16/22 08:41 Dose: 10 mg Fluticasone Propionate (Fluticasone Propionate Na Spr 16 Gm Btl) 1 sprays HOLLIS BID SHARITA Stop: 07/15/22 21:29 Last Admin: 06/16/22 20:30 Dose: 1 sprays Formoterol Fumarate (Formoterol 20 Mcg/2 Ml Vial) 20 mcg INH BIDR SHARITA Stop: 07/15/22 21:29 Last Admin: 06/17/22 07:14 Dose: 20 mcg Methylprednisolone 40 mg/ (Syringe) 0.64 mls @ 1.5 mls/min IV BID SHARITA Stop: 07/16/22 08:59 Last Admin: 06/16/22 21:23 Dose: 1.5 mls/min Ipratropium [place] (Ipratropium [place] Nasal [place] 0.06% 15ml) 2 sprays HOLLIS TID SHARITA Stop: 07/15/22 21:29 Last Admin: 06/16/22 20:30 Dose: 2 sprays Ipratropium [place] (Ipratropium [place] Neb Soln 0.02% 2.5 Ml Vial) 0.5 mg INH Q6R PRN PRN Reason: shortness of breath or wheezing Stop: 07/15/22 21:18 Levalbuterol HCl (Levalbuterol Hcl 0.63 Mg/3 Ml Neb) 0.63 mg NEB Q6R PRN; Protocol PRN Reason: shortness of breath or wheezing Stop: 07/15/22 21:18 Levalbuterol HCl (Levalbuterol Hcl 1.25 Mg/3 Ml Neb) 1.25 mg INH HS [facility] Stop: 07/15/22 21:29 Last Admin: 06/16/22 19:14 Dose: 1.25 mg Miscellaneous (Order Awaiting Action) 1 each N/A QS SHARITA Stop: 07/16/22 00:00 Last Admin: 06/17/22 07:21 Dose: Not Given Multivitamins (Multivitamin Tab) 1 tab PO DAILY SHARITA Stop: 07/16/22 08:59 Last Admin: 06/16/22 08:41 Dose: 1 tab Sennosides (Senna 8.6 Mg Tab) 8.6 mg PO BID SHARITA Stop: 07/15/22 21:29 Last Admin: 06/16/22 20:28 Dose: 8.6 mg Simvastatin (Simvastatin 20 Mg Tab) 20 mg PO QPM SHARITA Stop: 07/15/22 21:29 Last Admin: 06/16/22 20:29 Dose: 20 mg Vitamin D (Cholecalciferol 1,000 Units 25 Mcg Tab) 1,000 units PO DAILY SHARITA Stop: 07/16/22 08:59 Last Admin: 06/16/22 08:41 Dose: 1,000 units
[2022-06-17] MEDS: FLUTICASONE PROPIONATE NA SPR 16 GM BTL NAE SCH ×2 (08:33→20:37)
[2022-06-17] MEDS: IPRATROPIUM BROMIDE NASAL SPRAY 0.06% 15ML NAE SCH ×3 (08:33→20:38)
[2022-06-17] MEDS: methylPREDNISolone 40 MG in SYRINGE 0 ML IV SCH ×2 (08:34→20:34)
[2022-06-17] MEDS: SENNA 8.6 MG TAB PO SCH ×2 (08:35→20:32)
[2022-06-17] MEDS: amLODIPine BESYLATE 5 MG TAB PO SCH (08:35)
[2022-06-17] MEDS: CHOLECALCIFEROL 1,000 UNITS 25 MCG TAB PO SCH (08:35)
[2022-06-17] MEDS: ENALAPRIL MALEATE 10 MG TAB PO SCH (08:35)
[2022-06-17] MEDS: MULTIVITAMIN TAB PO SCH (08:35)
[2022-06-17] MEDS: POLYETHYLENE (MIRALAX) 17 GM PACK PO SCH (09:30)
[2022-06-17] MEDS: LEVALBUTEROL HCL 1.25 MG/3 ML NEB INH SCH (20:08)
[2022-06-17] MEDS: SIMVASTATIN 20 MG TAB PO SCH (20:33)
[2022-06-18 06:12] LABS: Hematocrit (blood only) 28.1 % (34.1-44.9); Hemoglobin 9.1 g/dl (12.0-16.0)
[2022-06-18 06:30] LABS: BUN Creatinine Ratio 23.8 (10-20); Calcium 9.7 mg/dl (8.5-10.1); Creatinine Clr Calc Pharmacy 40.7 ml/min; Est GFR (African American) 72.9 ml/min; Est GFR (Non-African American) 62.9 ml/min; Potassium 4.5 mmol/L (3.5-5.1)
[2022-06-18] MEDS: FORMOTEROL 20 MCG/2 ML VIAL INH SCH (07:06)
[2022-06-18] MEDS: BUDESONIDE 0.25 MG/2 ML VIAL (PULMICORT) INH SCH (07:06)
--- NOTE | 2022-06-18 07:45 | Hospitalist Progress Note ---
Date of Service June 18, 2022 Assessment & Plan (1) COPD exacerbation: Plan: History of severe COPD on home oxygen at a rate of 2.5 L/min Worsening condition for the last 3 days and is complicated by anemia Has exacerbation without any pneumonia We will continue with nebulized bronchodilators and steroid with Solu-Medrol ABG did not show any CO2 retention If the condition does not get any better will need to get pulmonary involvedshe sees Dr. Boyle/ Dr. Buchanan as an outpatient 06/17 Clinically much improved. Breathing comfortably on baseline O2. (2) Chronic respiratory failure with hypoxia: Plan: As above Requiring more oxygen on admission with acute exacerbation of COPD (3) Dependence on continuous supplemental oxygen: Plan: Has been on 2.5 L/min at home (4) Chronic anemia: Plan: History of anemia and was seen by statistical reporting analyst about 2 years ago (Dr. Rosales) Could be anemia of chronic disease/chronic GI blood loss/myelodysplasia Has not had any follow-up after that - plan was for bone marrow biopsy if anemia worsens She denies any blood vomiting or any blood in the stool or any black stool Hemoglobin 7 on admission, received 1 unit of blood transfusion Hgb now 9 (after transfusion 8.8 -> 7.8 -> 9.1), likely Hgb ~8 Hemoccult POSITIVE (06/17), ferritin low, consult GI per GI - procedure / endoscopy not recommended at this time, also pt not interested (pls see their note for detail) folic acid, B12 - wnl iron level wnl, ferritin low - will start on iron supplement Monitor CBC Troponin elevation - no chest pain - likely secondary to above - obtained echo - EF 65-70%, no WM abnormality (5) HTN (hypertension): Plan: History of hypertension Continue with current medication (6) High cholesterol: Plan: Continue the statin DVT prophylaxis Given the history of low hemoglobin we will hold any subcu heparin for now If there is no evidence of guaiac positive stool can start subcu heparin CODE STATUS DNR/DNI Admitting provider discussed with the daughter Admission and Anticipated Discharge Date Admission Date: June 15, 2022 Subjective Pt seen in follow up of shortness of breath, anemia hx of COPD, chronic resp. failure, hx of anemia received 1 unit of pRBC on admission Pt is sitting up in bed in no acute distress, on supplemental oxygen- at baseline Reports feeling much better, breathing is back to baseline Says she ambulates to the bathroom w/o difficulty PT eval pending Denies any chest pain Also denies any palpitations, fevers chills, abdominal pain, nausea vomiting Pt reports having brown stools no black/dark stools but FOBT positive Seen by GI - endoscopy not recommended, patient also not interested in any procedures Review of Systems Review of Systems: All systems reviewed & are unremarkable except as noted in Subjective Physical Exam Physical Exam: Physical Exam: Constitutional:L elderly, thin + ch ronically ill appe aring F in NAD Eyes: PERRL, EOMI, conju nctivae normal, an icteric sclerae ENMT: external ear and n ose normal, oropha rynx normal Neck: trachea midline Respiratory: + diminished lung sounds; no crackl es and no wheezes Cardiovascular:L regular rate, regu lar rhythm, normal S1 and normal S2; no murmur Extrem ities: no edema Gastrointestinal ( Abdomen): Inspection/Auscult ation: normal nevaeh l sounds; abdomen not distended Per cussion/Palpation: abdomen soft; abd omen nontender Musculoskeletal: moves extremities Neurologic: Alert, awake and o riented x3.Speech fluent, no facial asymmetry, moves extremities Results & Data Results & Data ([facility]) Vital Signs (Past 12 Hours) Vital Signs Temp Pulse Pulse Resp BP Pulse Ox O2 Del Method 06/18/22 07:31 87 06/18/22 07:06 91 H 18 96 Nasal Cannula 06/18/22 03:46 36.6 C 93 H 18 163/76 H 98 Nasal Cannula 06/18/22 00:57 Nasal Cannula 06/17/22 23:07 91 H 06/18/22 00:00 37.1 C 99 H 18 160/78 H 97 Nasal Cannula 06/17/22 20:04 98 H 18 94 Nasal Cannula O2 Flow Rate 06/18/22 07:31 06/18/22 07:06 2 06/18/22 03:46 2 06/18/22 00:57 2.5 06/17/22 23:07 06/18/22 00:00 2 06/17/22 20:04 2 Laboratory Results 06/18/22 06/18/22 06/17/22 Range/Units 05:36 05:36 13:10 Hgb 9.1 L (12.0-16.0) g/dl Hct 28.1 L (34.1-44.9) % Sodium 131 L (136-145) mmol/L Potassium 4.5 (3.5-5.1) mmol/L Chloride 94 L (98-107) mmol/L Carbon Dioxide 32 (21-32) mmol/L Anion Gap 5 (3-11) BUN 20 (6-23) mg/dl Creatinine 0.84 (0.6-1.2) mg/dl Est Cr Clr Drug Dosing 40.7 ml/min Est GFR ( Amer) 72.9 ml/min Est GFR (Non-Af Amer) 62.9 ml/min BUN/Creatinine Ratio 23.8 H (10-20) Glucose 121 H (70-99(Fasting)) mg/dl Calcium 9.7 (8.5-10.1) mg/dl Stool Occult Bld Scrn Positive A (Negative) Crossmatch 06/15/22 Range/Units 19:26 Hgb (12.0-16.0) g/dl Hct (34.1-44.9) % Sodium (136-145) mmol/L Potassium (3.5-5.1) mmol/L Chloride (98-107) mmol/L Carbon Dioxide (21-32) mmol/L Anion Gap (3-11) BUN (6-23) mg/dl Creatinine (0.6-1.2) mg/dl Est Cr Clr Drug Dosing ml/min Est GFR ( Amer) ml/min Est GFR (Non-Af Amer) ml/min BUN/Creatinine Ratio (10-20) Glucose (70-99(Fasting)) mg/dl Calcium (8.5-10.1) mg/dl Stool Occult Bld Scrn (Negative) Crossmatch See Detail Medications Administered Current Inpatient Medications Acetaminophen (Acetaminophen 325 Mg Tab) 325 mg PO QID PRN PRN Reason: Pain Stop: 07/15/22 21:18 Last Admin: 06/16/22 10:18 Dose: 325 mg Albuterol (Albut/Ipratrop 3mg/0.5mg Neb 3 Ml Vial) 3 ml INH Q6R PRN; Protocol PRN Reason: shortness of breath or wheezing Stop: 07/15/22 21:22 Amlodipine Besylate (Amlodipine Besylate 5 Mg Tab) 10 mg PO DAILY SHARITA Stop: 07/16/22 08:59 Last Admin: 06/17/22 08:35 Dose: 10 mg Budesonide (Budesonide 0.25 Mg/2 Ml Vial (Pulmicort)) 0.25 mg INH BIDR SHARITA Stop: 07/15/22 21:29 Last Admin: 06/18/22 07:06 Dose: 0.25 mg Enalapril Maleate (Enalapril Maleate 10 Mg Tab) 10 mg PO DAILY SHARITA Stop: 07/16/22 08:59 Last Admin: 06/17/22 08:35 Dose: 10 mg Fluticasone Propionate (Fluticasone Propionate Na Spr 16 Gm Btl) 1 sprays HOLLIS BID SHARITA Stop: 07/15/22 21:29 Last Admin: 06/17/22 20:37 Dose: 1 sprays Formoterol Fumarate (Formoterol 20 Mcg/2 Ml Vial) 20 mcg INH BIDR SHARITA Stop: 07/15/22 21:29 Last Admin: 06/18/22 07:06 Dose: 20 mcg Methylprednisolone 40 mg/ (Syringe) 0.64 mls @ 1.5 mls/min IV BID SHARITA Stop: 07/16/22 08:59 Last Admin: 06/17/22 20:34 Dose: 1.5 mls/min Ipratropium [place] (Ipratropium [place] Nasal [place] 0.06% 15ml) 2 sprays HOLLIS TID SHARITA Stop: 07/15/22 21:29 Last Admin: 06/17/22 20:38 Dose: 2 sprays Ipratropium [place] (Ipratropium [place] Neb Soln 0.02% 2.5 Ml Vial) 0.5 mg INH Q6R PRN PRN Reason: shortness of breath or wheezing Stop: 07/15/22 21:18 Levalbuterol HCl (Levalbuterol Hcl 0.63 Mg/3 Ml Neb) 0.63 mg NEB Q6R PRN; Protocol PRN Reason: shortness of breath or wheezing Stop: 07/15/22 21:18 Levalbuterol HCl (Levalbuterol Hcl 1.25 Mg/3 Ml Neb) 1.25 mg INH HS SHARITA Stop: 07/15/22 21:29 Last Admin: 06/17/22 20:08 Dose: 1.25 mg Miscellaneous (Order Awaiting Action) 1 each N/A QS SHARITA Stop: 07/16/22 00:00 Last Admin: 06/17/22 23:16 Dose: Not Given Multivitamins (Multivitamin Tab) 1 tab PO DAILY SHARITA Stop: 07/16/22 08:59 Last Admin: 06/17/22 08:35 Dose: 1 tab Polyethylene Glycol (Polyethylene (Miralax) 17 Gm Pack) 17 gm PO DAILY SHARITA Stop: 07/17/22 08:59 Last Admin: 06/17/22 09:30 Dose: 17 gm Sennosides (Senna 8.6 Mg Tab) 8.6 mg PO BID SHARITA Stop: 07/15/22 21:29 Last Admin: 06/17/22 20:32 Dose: 8.6 mg Simvastatin (Simvastatin 20 Mg Tab) 20 mg PO QPM SHARITA Stop: 07/15/22 21:29 Last Admin: 06/17/22 20:33 Dose: 20 mg Vitamin D (Cholecalciferol 1,000 Units 25 Mcg Tab) 1,000 units PO DAILY SHARITA Stop: 07/16/22 08:59 Last Admin: 06/17/22 08:35 Dose: 1,000 units
[2022-06-18] MEDS: amLODIPine BESYLATE 5 MG TAB PO SCH (07:53)
[2022-06-18] MEDS: MULTIVITAMIN TAB PO SCH (07:53)
[2022-06-18] MEDS: SENNA 8.6 MG TAB PO SCH (07:53)
[2022-06-18] MEDS: CHOLECALCIFEROL 1,000 UNITS 25 MCG TAB PO SCH (07:54)
[2022-06-18] MEDS: ENALAPRIL MALEATE 10 MG TAB PO SCH (07:54)
[2022-06-18] MEDS: FLUTICASONE PROPIONATE NA SPR 16 GM BTL NAE SCH (07:55)
[2022-06-18] MEDS: IPRATROPIUM BROMIDE NASAL SPRAY 0.06% 15ML NAE SCH ×2 (07:56→13:06)
[2022-06-18] MEDS: methylPREDNISolone 40 MG in SYRINGE 0 ML IV SCH (07:57)
[2022-06-18] MEDS: POLYETHYLENE (MIRALAX) 17 GM PACK PO SCH (08:01)
--- NOTE | 2022-06-18 09:53 | Gastrointestinal Consultation ---
Date of Consultation June 18, 2022 Assessment & Plan (1) Chronic anemia: Very pleasant 87 year old female with chronic anemia who was found to be heme (+) on this admission. She never sees blood in her stool. She has had anemia for a long time without cause. Certainly we could consider evaluation with EGD and colonoscopy but need to take into account the patient's age, her medical condition of O2 requiring COPD and her decision not to address anything such as malignancy with surgery. She is not actively bleeding as stools for hemoccult are not great tests in hospitalized patients. She and I had a long discussion and she has decided she does not wish testing to be done since it is not a new or emergent problem. I will advance her diet. Present on Admission?: Yes History of Present Illness Reason for Consultation: anemia Requesting Physician: Carlton Munguia MD Attending Physician: Carlton Munguia MD History of Present Illness 87 year old female admitted with anemia and COPD exacerbation. She tells me she has been anemic for a long time but no cause has been found. She denies ever having a colonoscopy or an EGD. She sees no blood in her stool. She does have problems with constipation. She will occasionally see "dark" stool. She has no abdominal pain. She denies heartburn or indigestion. She denies nausea or vomiting. She has had no hematochezia or sandra melena. She was found to have heme (+) stools while in hospital Allergies Allergy/AdvReac Type Severity Reaction Status Date / Time bee venom protein (honey bee) Allergy Mild RASH Verified 06/15/22 17:49 nickel AdvReac Mild Redness of Verified 06/15/22 17:49 Skin Home Medications Medication Instructions Recorded Confirmed Type amlodipine 10 mg tablet 10 mg PO DAILY 09/15/19 06/15/22 History enalapril maleate 10 mg tablet 10 mg PO DAILY 09/15/19 06/15/22 History epinephrine 0.3 mg/0.3 mL 0.3 mg IM UD PRN Allergic Reaction 09/15/19 06/15/22 History injection, auto-injector (EpiPen) simvastatin 20 mg tablet 20 mg PO QPM 09/15/19 06/15/22 History cholecalciferol (vitamin D3) 25 1,000 unit PO DAILY 10/11/19 06/15/22 History mcg (1,000 unit) chewable tablet (Vitamin D3) acetaminophen 325 mg tablet 325 mg PO QID PRN Pain 10/22/19 06/15/22 History aspirin 81 mg tablet,delayed 81 mg PO BID 03/09/21 06/15/22 History release sennosides 8.6 mg capsule (senna) 8.6 mg PO BID 03/09/21 06/15/22 History multivitamin 1 tab PO DAILY 11/30/21 06/15/22 History ipratropium 0.5 mg-albuterol 3 mg 3 ml inhalation Q8H PRN shortness 12/07/21 06/15/22 Rx (2.5 mg base)/3 mL nebulization of breath or wheezing #180 mL soln levalbuterol HCl 0.63 mg/3 mL 0.63 mg (3 mL) NEB Q6H PRN 12/14/21 06/15/22 Rx solution for nebulization shortness of breath or wheezing 30 days #480 mL arformoterol 15 mcg/2 mL solution 2 ml inhalation BID #120 mL 05/03/22 06/15/22 Rx for nebulization (Brovana) budesonide 0.25 mg/2 mL suspension 0.25 mg (2 mL) inhalation BID #60 05/03/22 06/15/22 Rx for nebulization mL pseudoephedrine HCl 120 mg 120 mg PO Q12H 05/03/22 06/15/22 History tablet,extended release (Sudafed 12 Hour) revefenacin 175 mcg/3 mL solution 175 mcg (3 mL) inhalation DAILY 05/03/22 06/15/22 Rx for nebulization (Yuelíaslri) #90 mL fluticasone propionate 50 1 spray intranasal BID #16 grams 05/11/22 06/15/22 Rx mcg/actuation nasal spray,suspension ipratropium bromide 42 mcg (0.06 2 spray intranasal TID #15 mL 05/22/22 06/15/22 Rx %) nasal spray ipratropium bromide 0.02 % 0.5 mg (2.5 mL) inhalation Q6H PRN 06/07/22 06/15/22 Rx solution for inhalation shortness of breath or wheezing 30 days #300 mL Patient History Medical History COPD, moderate High cholesterol HTN (hypertension) Surgical History H/O tubal ligation "1973" History of appendectomy S/P hip hemiarthroplasty Family History Other No pertinent family history Social History Smoking Status: Former smoker Smoking End Date: not known by patient; Second Hand Exposure: No; Do You Dip or Chew Tobacco: No; Tobacco Cessation Education Requested by Patient: No Hx Alcohol Use: No Hx Substance Use: No Preferred Language: Bruneian Communication Ability: Effective Nailhead Operator Required: No Beliefs That Will Affect Care: None marital status: / Current Living Situation: Alone How many Children do You have: 4 Other Information That Helps Us Care for You: No Feels Safe at Home: Yes Safety Concerns: Feels Safe At This Time Assistive Devices: Cane, Stair Lift and Walker Review of Systems Review of Systems: All systems reviewed & are unremarkable except as noted in HPI & below Physical Exam Constitutional: WD/WN, vitals as above nasal cannula in place Eyes: PERRL, conjunctivae normal, anicteric sclerae ENMT: external ear and nose normal, oropharynx normal Neck: trachea midline, no thyromegaly Respiratory: normal respiratory effort, lungs clear to auscultation Cardiovascular: RRR, no murmur, no edema Gastrointestinal (Abdomen): normal bowel sounds, soft, nontender, no hepatosplenomegaly Musculoskeletal: Extremities: no cyanosis and no clubbing Skin: no rashes, warm and dry Psychiatric: A+Ox3, euthymic affect Results & Data ([facility]) Vital Signs (Past 12 Hours) Vital Signs Temp Pulse Pulse Resp BP BP Pulse Ox 06/18/22 08:02 36.7 C 102 H 18 166/85 H 94 06/18/22 07:31 87 06/18/22 07:06 91 H 18 96 06/18/22 03:46 36.6 C 93 H 18 163/76 H 98 06/18/22 00:57 06/17/22 23:07 91 H 09/04/22 00:00 37.1 C 99 H 18 160/78 H 97 O2 Del Method O2 Flow Rate 06/18/22 08:02 Nasal Cannula 2 06/18/22 07:31 06/18/22 07:06 Nasal Cannula 2 06/18/22 03:46 Nasal Cannula 2 06/18/22 00:57 Nasal Cannula 2.5 06/17/22 23:07 06/18/22 00:00 Nasal Cannula 2 Laboratory Results 06/18/22 06/18/22 06/17/22 Range/Units 05:36 05:36 13:10 Hgb 9.1 L (12.0-16.0) g/dl Hct 28.1 L (34.1-44.9) % Sodium 131 L (136-145) mmol/L Potassium 4.5 (3.5-5.1) mmol/L Chloride 94 L (98-107) mmol/L Carbon Dioxide 32 (21-32) mmol/L Anion Gap 5 (3-11) BUN 20 (6-23) mg/dl Creatinine 0.84 (0.6-1.2) mg/dl Est Cr Clr Drug Dosing 40.7 ml/min Est GFR ( Amer) 72.9 ml/min Est GFR (Non-Af Amer) 62.9 ml/min BUN/Creatinine Ratio 23.8 H (10-20) Glucose 121 H (70-99(Fasting)) mg/dl Calcium 9.7 (8.5-10.1) mg/dl Stool Occult Bld Scrn Positive A (Negative) Crossmatch 06/15/22 Range/Units 19:26 Hgb (12.0-16.0) g/dl Hct (34.1-44.9) % Sodium (136-145) mmol/L Potassium (3.5-5.1) mmol/L Chloride (98-107) mmol/L Carbon Dioxide (21-32) mmol/L Anion Gap (3-11) BUN (6-23) mg/dl Creatinine (0.6-1.2) mg/dl Est Cr Clr Drug Dosing ml/min Est GFR ( Amer) ml/min Est GFR (Non-Af Amer) ml/min BUN/Creatinine Ratio (10-20) Glucose (70-99(Fasting)) mg/dl Calcium (8.5-10.1) mg/dl Stool Occult Bld Scrn (Negative) Crossmatch See Detail
--- NOTE | 2022-06-18 13:19 | Discharge Summary ---
Date of Service June 18, 2022 Admission HPI Per Admitting Provider She is an 86 years old female with significant past medical history of severe COPD on oxygen, pulmonary hypertension, chronic respiratory failure with hypoxia, hypertension, hyperlipidemia and chronic anemia apparently has been complaining of increasing shortness of breath for the last 3 days. She denies any cough or any phlegm, any fever and or chills, any chest pain and/or palpitation. She complains to have weakness and tiredness as well. No abdominal pain, nausea or vomiting and no history of hematemesis and/or melena. She was noted to have moderately shortness of breath at emergency room and hemoglobin noted to be 7.0. He was admitted to [facility] telemetry unit for continuation of care Admission Exam Per Admitting Provider Physical Exam: Lying in bed with moderate shortness of breath Constitutional: + ill appearing and + thin Eyes: PERRL, conjunctivae normal, anicteric sclerae ENMT: external ear and nose normal, oropharynx normal Neck: trachea midline, no thyromegaly Respiratory: + respiratory distress (Mild to moderate respiratory distress), + labored breathing (Minimal labored breathing) and + tachypneic; no cough Ausc ultation: + diminished lung sounds; no crackles and no wheezes Cardiovascular: Rate/Rhythm: regular rate, regular rhythm and + tachycardic Heart Sounds: normal S1 and normal S2; no murmur Extremities: + edema (Trace edema bilaterally) Gastrointestinal (Abdomen): Inspection/Auscultation: normal bowel sounds; abdomen not distended Percussion/Palpation: abdomen soft; abdomen nontender Musculoskeletal: No acute arthritis in any joint Neurologic: Alert, awake and oriented x3. No focal sensory or motor deficit appreciated. she is generally weak Lymphatic: no cervical or axillary lymphadenopathy Principal Diagnosis Acute on chronic hypoxic respiratory failure. COPD exacerbation Worsened chronic anemia -likely not acute anemia Discharge Exam Physical Exam: Constitutional: elderly, thin + chronically ill appearing F in NAD Eyes: PERRL, EOMI, conjunctivae normal, anicteric sclerae ENMT: external ear and nose normal, oropharynx normal Neck: trachea midline Respiratory: + diminished lung sounds; no crackles an d no wheezes Cardiovascular: regular rate, regular rhythm, normal S1 and normal S2; no murmur Extremities: no edema Gastrointestinal (Abdomen): Inspection/Auscultation: normal bowel sounds; abdomen not distended Percussion/Palpation: abdomen soft; abdomen nontender Musculoskeletal: moves extremities Neurologic: Alert, awake and oriented x3.Speech fluent, no facial asymmetry, moves extremities Discharge Data Allergies Allergy/AdvReac Type Severity Reaction Status Date / Time bee venom protein (honey bee) Allergy Mild RASH Verified 06/15/22 17:49 nickel AdvReac Mild Redness of Verified 06/15/22 17:49 Skin Consultations 06/15/22 19:12 ED Decision to Admit Stat 06/17/22 13:41 Consult Gastroenterology Routine Hospital Course (1) COPD exacerbation: History of severe COPD on home oxygen at a rate of 2.5 L/min Worsening condition for the last 3 days and is complicated by anemia Has exacerbation without any pneumonia We will continue with nebulized bronchodilators and steroid with Solu-Medrol ABG did not show any CO2 retention If the condition does not get any better will need to get pulmonary involvedshe sees Dr. Boyle/ Dr. Buchanan as an outpatient 06/17 Clinically much improved. Breathing comfortably on baseline O2. (2) Chronic respiratory failure with hypoxia: As above Requiring more oxygen on admission with acute exacerbation of COPD (3) Dependence on continuous supplemental oxygen: Has been on 2.5 L/min at home (4) Chronic anemia: History of anemia and was seen by precision inspector about 2 years ago (Dr. Rosales) Could be anemia of chronic disease/chronic GI blood loss/myelodysplasia Has not had any follow-up after that - plan was for bone marrow biopsy if anemia worsens She denies any blood vomiting or any blood in the stool or any black stool Hemoglobin 7 on admission, received 1 unit of blood transfusion Hgb now 9 (after transfusion 8.8 -> 7.8 -> 9.1), likely Hgb ~8 Hemoccult POSITIVE (06/17), ferritin low, consult GI per GI - procedure / endoscopy not recommended at this time, also pt not interested (pls see their note for detail) folic acid, B12 - wnl iron level wnl, ferritin low - will start on iron supplement Monitor CBC Troponin elevation - no chest pain - likely secondary to above - obtained echo - EF 65-70%, no WM abnormality (5) HTN (hypertension): History of hypertension Continue with current medication (6) High cholesterol: Continue the statin Total Time Total Time Spent Total Time Spent (In Minutes): 40 Discharge Plan Discharge Items Patient Disposition: Home - Self-Care Reason For Visit: EXACERBATION OF COPD, ANEMIA Discharge Diagnosis: Acute on chronic hypoxic respiratory failure. COPD exacerbation Worsened chronic anemia -likely not acute anemia Activity: Per Instructions section Non-emergency contact: Primary Care Provider Call non-emergency contact if: you have any medication questions and your symptoms worsen Follow-up/Referrals: Sy Camarillo MD [Primary Care Provider] - Diet: Heart Healthy Addtl Attending Provider Instructions: Follow-up with your primary care physician within 1 week. You may need to follow-up with your precision inspector. Take iron supplement as prescribed. Finish prednisone course as prescribed. Pending Studies at Discharge: No Stand-Alone Forms: My [employer], Smoking Cessation Medications and DC Order Prescriptions: New ferrous sulfate 325 mg (65 mg iron) tablet 325 mg PO DAILY Qty: 30 0RF prednisone 20 mg tablet 40 mg PO DAILY 3 Days Qty: 6 0RF Continued levalbuterol HCl 0.63 mg/3 mL solution for nebulization 0.63 mg NEB Q6H PRN (Reason: shortness of breath or wheezing) 30 Days Qty: 480 3RF Rx Instructions: Use 2 vials at hs. mix with ipratropium q 6 hours PRN fluticasone propionate 50 mcg/actuation spray,suspension 1 spray intranasal BID Qty: 16 2RF Rx Instructions: administer into each nostril ipratropium bromide 42 mcg (0.06 %) spray,non-aerosol 2 spray intranasal TID Qty: 15 5RF Rx Instructions: administer into each nostril ipratropium bromide 0.02 % solution 0.5 mg inhalation Q6H PRN (Reason: shortness of breath or wheezing) 30 Days Qty: 300 3RF Rx Instructions: mix with levalbuterol q 6 hours while awake acetaminophen 325 mg tablet 325 mg PO QID PRN (Reason: Pain) pseudoephedrine HCl [Sudafed 12 Hour] 120 mg tablet extended release 120 mg PO Q12H Yupelri 175 mcg/3 mL solution for nebulization 175 mcg inhalation DAILY Qty: 90 5RF arformoterol [Brovana] 15 mcg/2 mL solution for nebulization 2 ml inhalation BID Qty: 120 5RF budesonide 0.25 mg/2 mL suspension for nebulization 0.25 mg inhalation BID Qty: 60 5RF multivitamin Tablet 1 tab PO DAILY ipratropium-albuterol 0.5 mg-3 mg(2.5 mg base)/3 mL solution for nebulization 3 ml inhalation Q8H PRN (Reason: shortness of breath or wheezing) Qty: 180 5RF Hold Instructions: hold while on Ipratropium-Levalbuterol amlodipine 10 mg tablet 10 mg PO DAILY Rx Instructions: bp goal 140/90 enalapril maleate 10 mg tablet 10 mg PO DAILY epinephrine [EpiPen] 0.3 mg/0.3 mL auto-injector 0.3 mg IM UD PRN (Reason: Allergic Reaction) simvastatin 20 mg tablet 20 mg PO QPM aspirin 81 mg tablet,delayed release (DR/EC) 81 mg PO BID senna 8.6 mg capsule 8.6 mg PO BID cholecalciferol (vitamin D3) [Vitamin D3] 1,000 unit Tablet,Chewable 1,000 unit PO DAILY Discharge Orders: Discharge Order (Routine); Ordered 06/18/22 Ordered By: Carlton Munguia Admission Data Admit Date/Time: 06/15/22 19:39 Attending Provider: Carlton Munguia Admit Provider: Tommie Brambila Primary Care Provider: Sy Camarillo Other Providers: Tommie Brambila ; Niltno Cook Jr
== END 2022-06-18 14:56 | disposition home or self-care (01) | DRG 190 ==
LOC: ED 17:04 → 2N 19:39

== ENCOUNTER 2023-02-28 02:44 | Inpatient (IN) ==
[2023-02-28] MEDS ORDERED: ACETAMINOPHEN 1,000 MG/100 ML VIAL IV STA (02:53)
--- NOTE | 2023-02-28 02:57 | Emergency Department Note ---
Impression & Plan Acute pain of right hip, Closed fracture of right hip, COPD (chronic obstructive pulmonary disease), Dependence on continuous supplemental oxygen ED Provider Note ED Provider Note NAME: MAULIK SINGH AGE:87 SEX: Female : 1935 ARRIVES VIA: EMS INFORMANT: Patient ED PROVIDER(s): Blessnig Pyle DO CHIEF COMPLAINT: Right hip pain, fall HPI: This is an 87-year-old female presents emergency department due to acute right hip pain following a fall at home. Patient states she was up and walking and believes she tripped over her slippers. Patient states she does typically use a cane to help with walking. She denies any recent illness or change in medications. No preceding or prodromal symptoms including no dizziness or weakness. Daughter comes to bedside and states she saw her earlier this afternoon and she was acting in her usual state of health. Patient denies any head trauma or loss of consciousness in the fall. She denies any other concern for pain or injury other than that her right hip. Patient states pain in her right hip feels similar to when she broke her left hip and required surgery. She denies any use of blood thinners. PAST MEDICAL HISTORY:See Below PAST SURGICAL HISTORY:See Below FAMILY HISTORY:See Below SOCIAL HISTORY:See Below HOME MEDICATIONS:See Below ALLERGIES:See Below VITALS:See Below PHYSICAL EXAMINATION: GENERAL: alert, uncomfortable appearing, well nourished, no distress, non-toxic HEAD: nc/at EYE EXAM: normal conjunctiva, PERRL and EOM's grossly intact OROPHARYNX: no exudate, no erythema, lips, buccal mucosa, and tongue normal and mucous membranes are moist NECK: supple, no nuchal rigidity, no adenopathy, non-tender LUNGS: Clear to auscultation. Normal chest wall mechanics, no w/r/r HEART: no murmurs, S1 normal and S2 normal ABDOMEN: abdomen soft, non-tender, normo-active bowel sounds, no masses, no rebound or guarding. BACK: Back is symmetrical on inspection and there is no deformity, no midline tenderness, no CVA tenderness. SKIN: no rashes, petechiae, orbruising UPPER EXTREMITIES: upper extremities are grossly normal. FROM, nml pulses b/l. No evidence of trauma or deformity LOWER EXTREMITIES: No pitting edema. FROM LLE, nml pulses b/l. Pain with palpation of the right lateral hip, no other distal evidence of trauma. Unable to move the right hip due to significant pain. NEURO EXAM: Normal sensorium, cranial nerves II-XII grossly intact, normal speech, no facial droop,nogross weakness of arms, no gross weakness of legs. Gross sensation intact. No ataxia. Vital Signs: reviewed and remarkable Differential Diagnosis: Fracture, dislocation, contusion, pelvic fracture, sprain, strain, as well as others were considered MEDICAL DECISION MAKING: This is notably female who presents from home following a fall with complaints of right hip pain and inability to walk. Patient was afebrile and vital signs stable. Patient has significant pain with any attempted movement or palpation over the area of the right hip. Labs drawn and sent, IV established, EKG and chest x-ray performed at bedside and interpreted by me and patient placed on telemetry. She was started on gentle IV fluid rehydration, given IV Tylenol and multiple doses of IV morphine for pain control. X-rays confirm suspicion of right hip fracture, no evidence of a coming dislocation. Chest x-ray without any evidence of acute trauma. Patient had no other complaints or concerns for trauma or injury following this fall. Based on patient's description I do not suspect syncope as she had no prodromal symptoms and believes she tripped over her slippers. Patient and daughter at bedside updated on x-ray results and need for additional inpatient management. Case discussed with hospitalist. Consultation(s): 0340: Discussed with Dr. Cantu. ER Treatment Provided: See below Diagnostics Interpreted By Me: -ECG: Sinus tachycardia at 108, normal axis, normal intervals, nonspecific ST/T wave changes noted, PVCs noted -Cardiac Monitoring: An order was placed for continuous cardiac monitoring. The monitor shows a rate of 102 with sinus tachycardia rhythm. -Laboratory studies: As stated above and show below. -Imaging studies: X-ray Chest: A single view study of the chest was reviewed and was negative for cardiomegaly, focal infiltrate, effusion, pulmonary edema, or wide mediastinum. X-ray pelvis/right hip: Subcapital hip fracture noted on right Triage Nursing Note Reviewed Prior/Outside Records Reviewed -prior discharge summary reviewed Past Med/Surg History Medical History COPD, moderate High cholesterol HTN (hypertension) Surgical History H/O tubal ligation "1973" History of appendectomy S/P hip hemiarthroplasty Family History Other No pertinent family history Social History Smoking Status: Former smoker Tobacco Type: Cigarettes Second Hand Exposure: No; Do You Dip or Chew Tobacco: No; Hx Alcohol Use: No Hx Substance Use: No Preferred Language: Polish Communication Ability: Effective Radiation Control Worker Required: No Beliefs That Will Affect Care: None marital status: / Current Living Situation: Alone How many Children do You have: 4 Feels Safe at Home: Yes Assistive Devices: Cane, Stair Lift and Walker Allergies Allergies Allergy/AdvReac Type Severity Reaction Status Date / Time bee venom protein (honey bee) Allergy Mild RASH Verified 02/28/23 03:05 nickel AdvReac Mild Redness of Verified 02/28/23 03:05 Skin Home Meds Home Medications Medication Instructions Recorded Confirmed amlodipine 10 mg tablet 10 mg PO DAILY 09/15/19 02/28/23 enalapril maleate 10 mg tablet 10 mg PO DAILY 09/15/19 02/28/23 epinephrine 0.3 mg/0.3 mL 0.3 mg IM UD PRN Allergic Reaction 09/15/19 02/28/23 injection, auto-injector (EpiPen) simvastatin 20 mg tablet 20 mg PO QPM 09/15/19 02/28/23 aspirin 81 mg tablet,delayed 81 mg PO DAILY 03/09/21 02/28/23 release multivitamin 1 tab PO DAILY 11/30/21 02/28/23 pseudoephedrine HCl 120 mg 120 mg PO Q12H PRN Congestion 05/03/22 02/28/23 tablet,extended release (Sudafed 12 Hour) arformoterol 15 mcg/2 mL solution 2 ml inhalation [facility] 02/28/23 02/28/23 for nebulization (Brovana) budesonide 0.25 mg/2 mL suspension 0.25 mg inhalation [facility] 02/28/23 02/28/23 for nebulization cholecalciferol (vitamin D3) 50 50 mcg PO QAM 02/28/23 02/28/23 mcg (2,000 unit) tablet (Vitamin D3) fluticasone propionate 50 2 spray intranasal BID 02/28/23 02/28/23 mcg/actuation nasal spray,suspension furosemide 40 mg tablet 40 mg PO QAM 02/28/23 02/28/23 ipratropium 0.5 mg-albuterol 3 mg 3 ml inhalation Q8H PRN 02/28/23 02/28/23 (2.5 mg base)/3 mL nebulization SOB,wheezing or dyspnea soln revefenacin 175 mcg/3 mL solution 175 mcg inhalation QAM 02/28/23 02/28/23 for nebulization (Yupelri) sennosides 8.6 mg-docusate sodium 1 tab-cap PO QAM 02/28/23 02/28/23 50 mg tablet Previous Rx's Medication Instructions Recorded levalbuterol HCl 0.63 mg/3 mL 0.63 mg (3 mL) NEB Q6H PRN 12/14/21 solution for nebulization shortness of breath or wheezing 30 days #480 mL ipratropium bromide 42 mcg (0.06 2 spray intranasal TID #15 mL 05/22/22 %) nasal spray ipratropium bromide 0.02 % 0.5 mg (2.5 mL) inhalation Q6H PRN 06/07/22 solution for inhalation shortness of breath or wheezing 30 days #300 mL azithromycin 250 mg tablet 250 mg PO .COMPLEX #36 tabs 07/10/22 Results & Data (ED) Vital Signs Vital Signs - 24 hr 02/28/23 02:46 02/28/23 02:54 02/28/23 03:26 Temperature 36.5 C Temperature Source Oral Pulse Rate 113 H 108 H Pulse Rate [Apical] 104 H Respiratory Rate 16 18 Blood Pressure [Right Arm] 167/85 H Blood Pressure Mean [Right Arm] 112 Pulse Oximetry 91 95 Oxygen Delivery Method Room Air Nasal Cannula Oxygen Flow Rate 4 Sepsis Recent Fever Within 48 Hours No Sepsis New/Unexplained Change in Mental Status No Sepsis Action Taken by Nursing No Action Required Oxygen Flow Rate - Titration Pulse Oximetry Post Tiitration 02/28/23 03:15 02/28/23 05:10 Temperature Temperature Source Pulse Rate Pulse Rate [Apical] 106 H Respiratory Rate 16 Blood Pressure [Right Arm] 165/86 H Blood Pressure Mean [Right Arm] 112 Pulse Oximetry 87 L 91 Oxygen Delivery Method Nasal Cannula Nasal Cannula Oxygen Flow Rate 2 4 Sepsis Recent Fever Within 48 Hours Sepsis New/Unexplained Change in Mental Status Sepsis Action Taken by Nursing Oxygen Flow Rate - Titration 4 Pulse Oximetry Post Tiitration 94 Laboratory Data 02/28/23 03:05 02/28/23 03:05 Lab Results 02/28/23 02/28/23 02/28/23 Range/Units 03:05 03:05 03:05 WBC 11.58 H (4.8-10.8) K/ul RBC 3.83 L (4.20-5.40) M/uL Hgb 11.8 L (12.0-16.0) g/dl Hct 34.2 L (37.0-47.0) % MCV 89.3 (80.0-100.0) fL MCH 30.8 (25.0-34.0) pg MCHC 34.5 (32.0-36.0) g/dL RDW Std Deviation 43.5 (36.4-46.3) fL RDW Coeff of Gladis 13.3 (11.5-14.5) % Plt Count 358 (130-400) K/uL MPV 10.0 (9.4-12.4) fL Immature Gran % (Auto) 0.3 % Neut % (Auto) 81.7 % Lymph % (Auto) 9.5 % Atkinson % (Auto) 6.2 % Eos % (Auto) 1.8 % Baso % (Auto) 0.5 % Neut # (Auto) 9.45 H (1.40-6.50) K/uL Lymph # (Auto) 1.10 L (1.2-3.4) K/uL Atkinson # (Auto) 0.72 H (0.11-0.59) K/uL Eos # (Auto) 0.21 (0-0.50) K/uL Baso # (Auto) 0.06 (0-0.2) K/uL Immature Gran # (Auto) 0.04 (0.01-0.20) K/uL PT 10.9 (9.0-12.0) Seconds INR 1.0 (0.9-1.1) APTT 25.1 (21.0-31.0) Seconds PTT Ratio 0.9 Sodium 132 L (136-145) mmol/L Potassium 4.4 (3.5-5.1) mmol/L Chloride 93 L (98-107) mmol/L Carbon Dioxide 32 (21-32) mmol/L Anion Gap 7 (3-11) BUN 15 (6-23) mg/dl Creatinine 0.83 (0.6-1.2) mg/dl Est Cr Clr Drug Dosing Not Reportable Est GFR ( Amer) 73.5 ml/min Est GFR (Non-Af Amer) 63.4 ml/min BUN/Creatinine Ratio 18.1 (10-20) Glucose 134 H (70-99(Fasting)) mg/dl Calcium 9.6 (8.6-10.3) mg/dl Total Bilirubin 0.4 (0.2-1.0) mg/dl AST 19 (13-39) U/L ALT 14 (7-52) U/L Alkaline Phosphatase 54 (34-104) U/L Troponin I High Sens 19.3 H (0-14) pg/ml Total Protein 7.2 (6.0-8.3) gm/dl Albumin 4.1 (3.4-5.0) gm/dl Globulin 3.1 (2.5-4.0) gm/dl Albumin/Globulin Ratio 1.3 (0.9-2) SARS-CoV-2, RNA, NAAT (NEGATIVE) 02/28/23 Range/Units 03:45 WBC (4.8-10.8) K/ul RBC (4.20-5.40) M/uL Hgb (12.0-16.0) g/dl Hct (37.0-47.0) % MCV (80.0-100.0) fL MCH (25.0-34.0) pg MCHC (32.0-36.0) g/dL RDW Std Deviation (36.4-46.3) fL RDW Coeff of Gladis (11.5-14.5) % Plt Count (130-400) K/uL MPV (9.4-12.4) fL Immature Gran % (Auto) % Neut % (Auto) % Lymph % (Auto) % Atkinson % (Auto) % Eos % (Auto) % Baso % (Auto) % Neut # (Auto) (1.40-6.50) K/uL Lymph # (Auto) (1.2-3.4) K/uL Atkinson # (Auto) (0.11-0.59) K/uL Eos # (Auto) (0-0.50) K/uL Baso # (Auto) (0-0.2) K/uL Immature Gran # (Auto) (0.01-0.20) K/uL PT (9.0-12.0) Seconds INR (0.9-1.1) APTT (21.0-31.0) Seconds PTT Ratio Sodium (136-145) mmol/L Potassium (3.5-5.1) mmol/L Chloride (98-107) mmol/L Carbon Dioxide (21-32) mmol/L Anion Gap (3-11) BUN (6-23) mg/dl Creatinine (0.6-1.2) mg/dl Est Cr Clr Drug Dosing Est GFR ( Amer) ml/min Est GFR (Non-Af Amer) ml/min BUN/Creatinine Ratio (10-20) Glucose (70-99(Fasting)) mg/dl Calcium (8.6-10.3) mg/dl Total Bilirubin (0.2-1.0) mg/dl AST (13-39) U/L ALT (7-52) U/L Alkaline Phosphatase (34-104) U/L Troponin I High Sens (0-14) pg/ml Total Protein (6.0-8.3) gm/dl Albumin (3.4-5.0) gm/dl Globulin (2.5-4.0) gm/dl Albumin/Globulin Ratio (0.9-2) SARS-CoV-2, RNA, NAAT NEGATIVE (NEGATIVE) Administered Medications Sodium Chloride (Nss 1000ml) 1,000 mls @ 150 mls/hr IV .Q6H40M [facility] Stop: 02/28/23 09:39 Last Admin: 02/28/23 03:02 Dose: 150 mls/hr Documented By: VANNA Morphine Sulfate (Morphine Sulfate 2 Mg/Ml Carp) 2 mg IV Q1H PRN PRN Reason: Moderate Pain (Rating 3,4,5,6) Stop: 03/14/23 02:52 Last Admin: 02/28/23 04:29 Dose: 2 mg Documented By: Admin: 02/28/23 03:02 Dose: 2 mg Documented By: VANNA Discontinued Medications Hydromorphone HCl (Hydromorphone Inj 0.5 Mg/0.5 Ml Syr) 0.5 mg IV NOW STA Stop: 02/28/23 04:34 Last Admin: 02/28/23 05:02 Dose: 0.5 mg Documented By: CARLI Acetaminophen (Ofirmev) 1,000 mg in 100 mls @ 400 mls/hr IV NOW STA Stop: 02/28/23 03:07 Last Infusion: 02/28/23 03:36 Dose: 0 mls/hr Documented By: Admin: 02/28/23 03:02 Dose: 400 mls/hr Documented By: VANNA Morphine Sulfate (Morphine Sulfate 2 Mg/Ml Carp) 2 mg IV NOW STA Stop: 02/28/23 03:33 Last Admin: 02/28/23 03:36 Dose: 2 mg Documented By: CARLI Morphine Sulfate (Morphine Sulfate 2 Mg/Ml Carp) 2 mg IV NOW STA Stop: 02/28/23 03:52 Last Admin: 02/28/23 03:54 Dose: 2 mg Documented By: CARLI Discharge Plan Visit Data Chief Complaint: Fall Stated Complaint: FALL w/ rt HIP PAIN ED Provider: Blessing Pyle Discharge Problem: Acute pain of right hip, Closed fracture of right hip, COPD (chronic obstructive pulmonary disease), Dependence on continuous supplemental oxygen Forms Stand Alone Forms: My [facility] Prescriptions Prescriptions: No Action levalbuterol HCl 0.63 mg/3 mL solution for nebulization 0.63 mg NEB Q6H PRN (Reason: shortness of breath or wheezing) 30 Days Qty: 480 3RF Rx Instructions: Use 2 vials at hs. mix with ipratropium q 6 hours PRN ipratropium bromide 42 mcg (0.06 %) spray,non-aerosol 2 spray intranasal TID Qty: 15 5RF Rx Instructions: administer into each nostril ipratropium bromide 0.02 % solution 0.5 mg inhalation Q6H PRN (Reason: shortness of breath or wheezing) 30 Days Qty: 300 3RF Rx Instructions: mix with levalbuterol q 6 hours while awake pseudoephedrine HCl [Sudafed 12 Hour] 120 mg tablet extended release 120 mg PO Q12H PRN (Reason: Congestion) multivitamin Tablet 1 tab PO DAILY azithromycin 250 mg tablet 250 mg PO .COMPLEX Qty: 36 2RF Rx Instructions: 250 mg PO 1 tab p.o. on [id number]; amlodipine 10 mg tablet 10 mg PO DAILY Rx Instructions: bp goal 140/90 enalapril maleate 10 mg tablet 10 mg PO DAILY epinephrine [EpiPen] 0.3 mg/0.3 mL auto-injector 0.3 mg IM UD PRN (Reason: Allergic Reaction) simvastatin 20 mg tablet 20 mg PO QPM aspirin 81 mg tablet,delayed release (DR/EC) 81 mg PO DAILY furosemide 40 mg Tablet 40 mg PO QAM cholecalciferol (vitamin D3) [Vitamin D3] 50 mcg (2,000 unit) Tablet 50 mcg PO QAM fluticasone propionate 50 mcg/actuation spray,suspension 2 spray intranasal BID Rx Instructions: administer into each nostril arformoterol [Brovana] 15 mcg/2 mL solution for nebulization 2 ml inhalation [facility] Yupelri 175 mcg/3 mL solution for nebulization 175 mcg inhalation QAM ipratropium-albuterol 0.5 mg-3 mg(2.5 mg base)/3 mL solution for nebulization 3 ml inhalation Q8H PRN (Reason: SOB,wheezing or dyspnea) budesonide 0.25 mg/2 mL suspension for nebulization 0.25 mg inhalation [facility] sennosides-docusate sodium 8.6-50 mg Tablet 1 tab-cap PO QAM Referrals Referrals: Sy Camarillo MD [Primary Care Provider] -
[2023-02-28] MEDS ORDERED: SODIUM CHLORIDE 0.9% 1000ML 1,000 ML IV SCH ×3 (03:00→06:40)
[2023-02-28] MEDS: MoRPHine SULFATE 2 MG/ML CARP IV PRN ×2 (03:02→04:29)
[2023-02-28 03:17] LABS: Basophils # (auto) 0.06 K/uL (0-0.2); Basophils % (auto) 0.5 %; Eosinophils # (auto) 0.21 K/uL (0-0.50); Eosinophils % (auto) 1.8 %; Hematocrit (blood only) 34.2 % (37.0-47.0); Hemoglobin 11.8 g/dl (12.0-16.0); Immature Granulocytes # (auto) 0.04 K/uL (0.01-0.20); Immature Granulocytes % (auto) 0.3 %; Lymphocytes % (auto) 9.5 %; Mean Corpuscular Hemoglobin 30.8 pg (25.0-34.0); Mean Corpuscular Hgb Conc 34.5 g/dL (32.0-36.0); Mean Corpuscular Volume 89.3 fL (80.0-100.0); Monocytes # (auto) 0.72 K/uL (0.11-0.59); Monocytes % (auto) 6.2 %; Neutrophils # (auto) 9.45 K/uL (1.40-6.50); Neutrophils % (auto) 81.7 %; Platelet Count 358 K/uL (130-400); RDW Coefficient of Variation 13.3 % (11.5-14.5); RDW Standard Deviation 43.5 fL (36.4-46.3); Red Blood Count 3.83 M/uL (4.20-5.40); White Blood Count 11.58 K/ul (4.8-10.8)
[2023-02-28] MEDS ORDERED: MoRPHine SULFATE 2 MG/ML CARP IV STA ×3 (03:32→04:58)
[2023-02-28 03:33] LABS: Alanine Aminotransferase 14 U/L (7-52); Albumin Globulin Ratio 1.3 (0.9-2); Albumin Level 4.1 gm/dl (3.4-5.0); Alkaline Phosphatase 54 U/L (34-104); Anion Gap 7 (3-11); Aspartate Aminotransferase 19 U/L (13-39); BUN Creatinine Ratio 18.1 (10-20); Bilirubin,Total 0.4 mg/dl (0.2-1.0); Blood Urea Nitrogen 15 mg/dl (6-23); Calcium 9.6 mg/dl (8.6-10.3); Carbon Dioxide 32 mmol/L (21-32); Chloride 93 mmol/L (98-107); Est GFR (African American) 73.5 ml/min; Est GFR (Non-African American) 63.4 ml/min; Globulin 3.1 gm/dl (2.5-4.0); Glucose 134 mg/dl (70-99(Fasting)); Potassium 4.4 mmol/L (3.5-5.1); Sodium 132 mmol/L (136-145); Total Protein 7.2 gm/dl (6.0-8.3)
[2023-02-28 03:39] LABS: Troponin I High Sensitivity 19.3 pg/ml (0-14)
[2023-02-28 03:45] LABS: Partial Thromboplastin Ratio 0.9; Partial Thromboplastin Time 25.1 Seconds (21.0-31.0); Prothrombin Time 10.9 Seconds (9.0-12.0)
[2023-02-28] MEDS ORDERED: HYDROmorphone INJ 0.5 MG/0.5 ML SYR IV STA (04:33)
[2023-02-28 05:29] LABS: Appearance Urine Clear (Clear); Bacteria Urine Automated Negative (Negative); Bilirubin Urine Negative (Negative); Blood Urine Negative (Negative); Cast Urine Automated 0 /lpf (0-5); Color Urine Yellow; Glucose Urine UA Negative (Negative); Ketones Urine Negative (Negative); Leukocyte Esterase Urine Negative (Negative); Nitrite Urine Negative (Negative); RBC Urine Automated 0-4 /hpf (0-4); Specific Gravity Urine 1.014 (1.000-1.030); Urobilinogen Urine Negative (Negative)
[2023-02-28 05:33] LABS: Protein Urine 2+ (Negative)
[2023-02-28] MEDS ORDERED: ALBUT/IPRATROP 3MG/0.5MG NEB 3 ML VIAL INH PRN (06:40)
[2023-02-28] MEDS ORDERED: NITROGLYCERIN SL 0.4 MG/TAB TAB SL PRN (06:40)
[2023-02-28] MEDS ORDERED: IPRATROPIUM BROMIDE NEB SOLN 0.02% 2.5 ML VIAL INH PRN (06:40)
[2023-02-28] MEDS ORDERED: LEVALBUTEROL HCL 0.63 MG/3 ML NEB NEB PRN (06:40)
--- NOTE | 2023-02-28 06:46 | XRay Report ---
XR hip RT 2V w pelvis HISTORY: 87 years-old Female trauma acute right-sided hip pain status post fall COMPARISON: Radiographs 04/23/2020 TECHNIQUE: AP view of the pelvis with chest 2 views of the right hip FINDINGS: Unremarkable appearance of the left hip arthroplasty. Demineralized appearance of the bones. Degenera tive changes of the lumbar spine redemonstrated. Moderate right hip osteoarthritis. There is an acute subcapital fracture which demonstrates mild comminution with impaction and superior lateral displace ment of approximately 2.5 cm. Soft tissue swelling lateral to the right hip. No dislocation. IMPRESSION: Acute mildly comminuted, impacted and displaced subcapital right femoral fracture. ACT 112: Negative or not required by law. The above report was generated using voice recognition software. It may contain grammatical, syntax o r spelling errors. Electronically signed by: Ag Lopez M.D. 02/28/2023 6:44 AM
--- NOTE | 2023-02-28 06:47 | XRay Report ---
XR chest 1V portable HISTORY: 87 years-old Female fall acute chest trauma status post fall COMPARISON: Chest radiograph 06/15/2022 TECHNIQUE: AP view of the chest FINDINGS: The cardiomediastinal and hilar silhouettes are unchanged. Atherosclerosis of the aorta. No pneumotho rax, pleural effusion or overt pulmonary edema. Chronic interstitial coarsening of the lungs with emp hysema. Degenerative changes of the shoulders and spine. IMPRESSION: Emphysema without acute process. ACT 112: Negative or not required by law. The above report was generated using voice recognition software. It may contain grammatical, syntax o r spelling errors. Electronically signed by: Ag Lopez M.D. 02/28/2023 6:46 AM
[2023-02-28] MEDS ORDERED: EPINEPHrine INJ 1 MG/ML AMP IM PRN (06:51)
--- NOTE | 2023-02-28 08:03 | History and Physical Report ---
DATE OF ADMISSION: 02/28/2023. CHIEF COMPLAINT: Status post fall and right hip fracture. HISTORY OF PRESENT ILLNESS: This is an 87-year-old female who lives at [facility], was brought in because of fall and found to have right hip fracture. Daughter is in the room. It looks like the patient does not remember exactly how she fell, but she thinks that her slipper stuck on something and she fell. Has a lot of pain in the right hip region. The patient is alert and awake. She has COPD and uses oxygen all the time, 2 liters. She says she quit smoking about 8 months ago. Currently, denies any chest pain, no shortness of breath, no cough. Because of dry throat, has some sore throat. No runny nose. No earaches. Has some mild headache. No blurred visions, no dizziness, no nausea, no abdominal pain. Normal bowel and bladder movements. Hemodynamically stable. ALLERGIES: BEE VENOM, NICKEL. PAST MEDICAL HISTORY: As mentioned above. PAST SURGICAL HISTORY: Ligation of oviducts, appendectomy, cataract surgery, left total hip replacement. MEDICATIONS: The patient is on amlodipine 10 mg p.o. daily, Brovana 2 mL inhalation b.i.d., aspirin 81 mg p.o. daily, azithromycin 250 mg p.o. 3 times a week, budesonide 0.25 mg inhalation b.i.d., vitamin D 50 mcg p.o. daily, enalapril 10 mg p.o. daily, epinephrine IM p.r.n., Flonase 2 sprays intranasal b.i.d., Lasix 40 mg p.o. daily, DuoNebs q. 8 hours p.r.n., Xopenex p.r.n., multivitamin 1 tablet p.o. daily, Yupelri 175 mcg inhalation a.m., Senokot S one tablet p.o. a.m., simvastatin 20 mg p.o. p.m. FAMILY HISTORY: Significant for father of V fib at the age of 65, heart attack; sister has heart attack; mother has stroke; daughter has hyperthyroidism. SOCIAL HISTORY: Currently living at [place]. Quit smoking about 8 months ago, smoked 1 pack a day for 60 years. No alcohol use. No drug use. REVIEW OF SYSTEMS: As per HPI. Rest of review of systems is negative. PHYSICAL EXAMINATION: GENERAL: The patient is old and frail, not in acute distress. VITAL SIGNS: Temperature 36.5, pulse 104, respiratory rate 18, blood pressure 167/85, oxygen 95% on 4 liters. HEENT: Pupils equal, round and reactive to light. Oral mucosa moist. NECK: No JVD. No neck masses. CARDIOVASCULAR: S1 and S2 heard. Regular rate and rhythm. No murmur, no gallop. RESPIRATORY SYSTEM: Normal AP diameter. No accessory muscle use. No wheezing, no crackles. ABDOMEN: Soft, bowel sounds present, nontender, no distention. CENTRAL NERVOUS SYSTEM: Alert and oriented. Speech is clear. Obeys simple commands. Insight is okay. No facial droop. Speech is clear. EXTREMITIES: Bilateral lower extremity edema seen. Right lower extremity shortened and externally rotated. No erythema seen. LABORATORY DATA: WBC 11.5, hemoglobin 11.8, hematocrit 34.2, platelets 358. PT 10.9, INR 1, APTT 25.1. Sodium 132, potassium 4.4, chloride 93, CO2 of 32, BUN 15, creatinine 0.8, serum glucose 134, calcium 9.6, total bilirubin 0.4, AST 19, ALT 14, alkaline phosphatase 54. Troponin I high sensitivity 19.3. SARS-CoV-2 rapid test negative. IMAGING DATA: Chest x-ray, no acute findings. EKG: Sinus tachycardia with PVCs at a rate of 108. ASSESSMENT AND PLAN: This is an 87-year-old female who presents status post fall and right hip fracture. 1. Status post fall and right hip fracture: The patient is somewhat old and frail. Requires 2 L of oxygen all the time, history of chronic obstructive pulmonary disease. Patient should be of moderate risk for any procedures. Currently labs ok, ekg and cxr ok. Should be at acceptable risk for the surgery .Monitor in the [facility]. N.p.o., IV gentle fluids, pain control. Consult orthopedics in the a.m. 2. History of chronic obstructive pulmonary disease and chronic respiratory failure, on 2 L oxygen all the time: Continue her home inhalers. Currently seems to be at baseline. 3. Hypertension: Continue amlodipine, enalapril, and Lasix. Will monitor the blood pressure. 4.Lower extremity edema. Recently started on Lasix as per the daughter, which will be continued.on gentle fluids, monitor for volume overload. An echo done in June 2022 showed EF of 65% to 70%. 4. History of pulmonary hypertension: On oxygen. 5. Hyperlipidemia: Continue statin. 6. Deep venous thrombosis prophylaxis: Could not place on anticoagulation because of the plan for procedures and could not place SCDs because of the hip fracture. Further anticoagulation as per orthopedics. DISPOSITION: Monitor in the med tele. PT/OT prior to discharge. Social service to help with discharge planning. CODE STATUS: DNR/DNI as per my discussion with daughter and the patient. Job ID: [id number] MTDD
[2023-02-28] MEDS: IPRATROPIUM BROMIDE NASAL SPRAY 0.06% 15ML SCH ×3 (09:00→20:49)
[2023-02-28] MEDS: FLUTICASONE PROPIONATE NA SPR 16 GM BTL SCH ×2 (09:00→20:49)
[2023-02-28] MEDS: BUDESONIDE 0.25 MG/2 ML VIAL (PULMICORT) INH SCH ×2 (09:27→19:00)
[2023-02-28] MEDS: FORMOTEROL 20 MCG/2 ML VIAL INH SCH ×2 (09:27→19:00)
[2023-02-28] MEDS ORDERED: MAGNESIUM SULFATE / D5W 1 GM/100 ML BAG IV ONE (10:00)
--- NOTE | 2023-02-28 10:20 | Electrocardiogram Report ---
Test Reason : Blood Pressure : / mmHG Vent. Rate : 108 BPM Atrial Rate : 108 BPM P-R Int : 166 ms QRS Dur : 068 ms QT Int : 302 ms P-R-T Axes : 084 077 079 degrees QTc Int : 404 ms Sinus tachycardia with Premature supraventricular complexes and with frequent , and consecutive Kellie ture ventricular complexes Abnormal ECG When compared with ECG of 15-JUN-2022 22:15, Premature ventricular complexes are now Present Confirmed by Redd Sanchez ([id number]) on 02/28/2023 10:20:27 AM Referred By: REFERRED SELF Confirmed By:Zack Sanchez
[2023-02-28] MEDS: CHOLECALCIFEROL 1,000 UNITS 25 MCG TAB PO SCH (11:11)
[2023-02-28] MEDS: ENALAPRIL MALEATE 10 MG TAB PO SCH (11:11)
[2023-02-28] MEDS: ASPIRIN 81 MG ECTAB PO SCH (11:11)
[2023-02-28] MEDS: DOCUSATE SODIUM/SENNA 50/8.6MG TAB PO SCH (11:11)
[2023-02-28] MEDS: AZITHROMYCIN 250 MG TAB PO SCH (11:11)
[2023-02-28] MEDS: amLODIPine BESYLATE 5 MG TAB PO SCH (11:11)
[2023-02-28] MEDS: FUROSEMIDE 40 MG TAB PO SCH (11:12)
[2023-02-28] MEDS: MULTIVITAMIN TAB PO SCH (11:13)
--- NOTE | 2023-02-28 15:41 | XRay Report ---
XR chest 1V portable HISTORY: 87 years-old Female sob acute shortness of breath COMPARISON: Chest radiograph of same day at 3:25 AM TECHNIQUE: AP view of the chest FINDINGS: The cardiomediastinal and hilar silhouettes are unchanged. Atherosclerosis of the aorta. No pneumotho rax, pleural effusion or overt pulmonary edema. Chronic interstitial coarsening of the lungs with emp hysema. Degenerative changes of the shoulders and spine. IMPRESSION: Emphysema without acute process. ACT 112: Negative or not required by law. The above report was generated using voice recognition software. It may contain grammatical, syntax o r spelling errors. Electronically signed by: Ag Lopez M.D. 02/28/2023 3:39 PM
--- NOTE | 2023-02-28 15:57 | Orthopedic Consultation ---
Date of Service February 28, 2023 Assessment & Plan (1) Closed fracture of right hip: She was seen and examined in the ER. Her family is present with her. They were educated on this type of injury/fracture and treatment for it, specifically hemiarthroplasty. Questions were answered. She does have a nickel allergy which Dr. Hancock is aware of. NPO after midnight for surgery with Dr. Hancock. History of Present Illness Reason for Consultation: . Requesting Physician: . Attending Physician: David Lyn MD . Dante is a 87 year old patient who fell last night and fractured her right hip. She denies any other injuries. She denies any right hip pain prior to the fall. She used a cane for ambulation prior to the fall. She has a history of a left hip fracture about 3 1/2 years ago, treated with a bipolar hemiarthroplasty by Dr. Hancock. Allergies Allergy/AdvReac Type Severity Reaction Status Date / Time bee venom protein (honey bee) Allergy Mild RASH Verified 02/28/23 03:05 nickel AdvReac Mild Redness of Verified 02/28/23 03:05 Skin Home Medications Medication Instructions Recorded Confirmed Type amlodipine 10 mg tablet 10 mg PO DAILY 09/15/19 02/28/23 History enalapril maleate 10 mg tablet 10 mg PO DAILY 09/15/19 02/28/23 History epinephrine 0.3 mg/0.3 mL 0.3 mg IM UD PRN Allergic Reaction 09/15/19 02/28/23 History injection, auto-injector (EpiPen) simvastatin 20 mg tablet 20 mg PO QPM 09/15/19 02/28/23 History aspirin 81 mg tablet,delayed 81 mg PO DAILY 03/09/21 02/28/23 History release multivitamin 1 tab PO DAILY 11/30/21 02/28/23 History levalbuterol HCl 0.63 mg/3 mL 0.63 mg (3 mL) NEB Q6H PRN 12/14/21 02/28/23 Rx solution for nebulization shortness of breath or wheezing 30 days #480 mL pseudoephedrine HCl 120 mg 120 mg PO Q12H PRN Congestion 05/03/22 02/28/23 History tablet,extended release (Sudafed 12 Hour) ipratropium bromide 42 mcg (0.06 2 spray intranasal TID #15 mL 05/22/22 02/28/23 Rx %) nasal spray ipratropium bromide 0.02 % 0.5 mg (2.5 mL) inhalation Q6H PRN 06/07/22 02/28/23 Rx solution for inhalation shortness of breath or wheezing 30 days #300 mL azithromycin 250 mg tablet 250 mg PO .COMPLEX #36 tabs 07/10/22 02/28/23 Rx arformoterol 15 mcg/2 mL solution 2 ml inhalation AMHS 02/28/23 02/28/23 History for nebulization (Brovana) budesonide 0.25 mg/2 mL suspension 0.25 mg inhalation AMHS 02/28/23 02/28/23 History for nebulization cholecalciferol (vitamin D3) 50 50 mcg PO QAM 02/28/23 02/28/23 History mcg (2,000 unit) tablet (Vitamin D3) fluticasone propionate 50 2 spray intranasal BID 02/28/23 02/28/23 History mcg/actuation nasal spray,suspension furosemide 40 mg tablet 40 mg PO QAM 02/28/23 02/28/23 History ipratropium 0.5 mg-albuterol 3 mg 3 ml inhalation Q8H PRN 02/28/23 02/28/23 History (2.5 mg base)/3 mL nebulization SOB,wheezing or dyspnea soln revefenacin 175 mcg/3 mL solution 175 mcg inhalation QAM 02/28/23 02/28/23 History for nebulization (Yupeludyi) sennosides 8.6 mg-docusate sodium 1 tab-cap PO QAM 02/28/23 02/28/23 History 50 mg tablet Past Med/Surg History Medical History (Updated 03/01/23 @ 11:30 by Roger العراقي MD) COPD, moderate on O2 High cholesterol HTN (hypertension) Surgical History H/O tubal ligation "1972" History of appendectomy S/P hip hemiarthroplasty Family History Other No pertinent family history Social History Smoking Status: Former smoker Tobacco Type: Cigarettes Second Hand Exposure: No; Do You Dip or Chew Tobacco: No; Hx Alcohol Use: Yes Alcohol type: wine Hx Substance Use: No Preferred Language: Swiss Communication Ability: Effective Instructional Technology Coach Required: No Beliefs That Will Affect Care: None marital status: / Current Living Situation: Care Home Current Living Situation Comment: Lives at [facility] in [place] How many Children do You have: 4 Feels Safe at Home: Yes Safety Concerns: Feels Safe At This Time Assistive Devices: Cane, Nebulizer, Oxygen - Continuous, Walker and Wheelchair Review of Systems All systems reviewed & are unremarkable except as noted in HPI & below. Physical Exam Alert and oriented. NAD No obvious swelling or ecchymosis of her upper extremities. No pain with range of motion. Left leg: well healed scar from her previous hip surgery. She has some edema of her lower extremities. Able to dorsiflex and plantarflex, NVI. I did not do any motion of her right hip. Her hip is flexed. Results & Data Results & Data Laboratory Results . Diagnostic Findings . xrays reviewed including AP pelvis and lateral of the hip, show a displaced right femoral neck fracture. She has a left hip hemiarthroplasty PG Care Time/CCT Total # of Minutes Spent Total Time Spent with Patient: Total time spent is greater than 50% in coordination of care (as documented) at patient's floor/unit and/or counseling patient: Supervising Physician Co-Signing Physician Notes I agree with the Physician Wigs Salesperson's H&P and documentation. Dante has a similar femoral neck fracture on the right which will be best treated just as we did for the left two years ago. There was concern for nickel sensitivity, and we had a prolonged discussion on options. The small risk of nickel reaction from the cobalt chrome on the bipolar hemiarthroplasty cannot be avoided unless a total hip is performed, which invites additional risk. We chose to go with bipolar hemiarthroplasty on the left, and she has done very well. My recommendation is to do the same today on the right. We reviewed the risk and benefits with respect to the surgery and her overall health. All we agreeable to proceed with right hip bipolar hemiarthoplasty. We will use a titanium implant and press-fit due to the nickel allergy. Coding Level of Care Code 03149 IN/OBS CONSULT LVL 4,60M (57 - DECISION FOR SURGERY) Diagnoses Closed fracture of right hip S72.001A
[2023-02-28] MEDS: HYDROmorphone INJ 0.5 MG/0.5 ML SYR IV PRN ×2 (16:13→23:20)
--- NOTE | 2023-02-28 19:14 | Hospitalist Progress Note ---
Date of Service February 28, 2023 Assessment & Plan (1) Acute pain of right hip: Plan Patient is an 87 y- female who presents status post fall and right hip fracture. Right femur fracture Secondary to fall -Hip X ray:Acute mildly comminuted, impacted and displaced subcapital right femo ral fracture. Pain control Fall precautions Appreciate orthopedics input Plan for surgery tomorrow N.p.o. after midnight PT OT as able COPD Chronic respiratory failure with hypoxia--on 2 L at baseline CXR:Emphysema without acute process. Continue supplemental oxygen to keep saturations 88 to 92% Continue home inhalers HTN BP mildly elevated Continue amlodipine, enalapril Also on Lasix Lower extremity edema Recently started on Lasix ECHO done in June 2022 showed EF of 65% to 70%. Monitor volume status H/O Pulmonary hypertension Continue home medications Hyperlipidemia: Continue statin DVT Px: SCDs for now CODE STATUS: DNR/DNI Admission and Anticipated Discharge Date Admission Date: February 28, 2023 Subjective Patient is seen and examined at bedside States having right hip pain with movement Discussed with patient's family at bedside Denies any chest pain, dyspnea Poor historian No other complaints Review of Systems Review of Systems: All systems reviewed & are unremarkable except as noted in Subjective Physical Exam Physical Exam: Physical Exam: Vitals signs as noted above General Appearance: Chronic ill-appearing, elderly, mild distress Head: normocephalic, Atraumatic Eyes: normal inspection, EOMI Neck: supple, Trachea midline Respiratory/Chest: Normal breath sounds, CTA, No accessory muscle use Cardiovascular: S1, S2, No murmur Abdomen/GI:Soft, Non tender, Bowel sounds present Extremities/Musculoskeletal:normal inspection, + pedal edema, right lower extremity decreased range of movement, flexed Neurologic/Psych:AAOX2, grossly no focal neurological deficits Skin: normal color, warm Results & Data Results & Data Vital Signs (Past 12 Hours) Vital Signs Pulse Pulse Resp BP Pulse Ox O2 Del Method O2 Flow Rate 02/28/23 19:01 103 H 25 H 995 H Nasal Cannula 5 02/28/23 14:52 106 H 02/28/23 10:00 115 H 16 92 02/28/23 10:00 148/86 H 02/28/23 08:00 102 H 8 L 92 02/28/23 08:00 156/96 H 02/28/23 07:18 104 H 18 94 Oxymask 3 Laboratory Results Short CBC 02/28/23 Range/Units 03:05 WBC 11.58 H (4.8-10.8) K/ul Hgb 11.8 L (12.0-16.0) g/dl Hct 34.2 L (37.0-47.0) % Plt Count 358 (130-400) K/uL BMP 02/28/23 03:05 Sodium 132 L Potassium 4.4 Chloride 93 L Carbon Dioxide 32 BUN 15 Creatinine 0.83 Glucose 134 H Calcium 9.6 Liver Function 02/28/23 Range/Units 03:05 Total Bilirubin 0.4 (0.2-1.0) mg/dl AST 19 (13-39) U/L ALT 14 (7-52) U/L Alkaline Phosphatase 54 (34-104) U/L Albumin 4.1 (3.4-5.0) gm/dl Urine 02/28/23 Range/Units 05:00 Urine Color Yellow Urine Appearance Clear (Clear) Urine pH 8.0 H (4.5-7.5) Ur Specific [place] 1.014 (1.000-1.030) Urine Protein 2+ H (Negative) Urine Glucose (UA) Negative (Negative)
[2023-02-28] MEDS: SIMVASTATIN 20 MG TAB PO SCH (20:50)
[2023-03-01] MEDS: HYDROmorphone INJ 0.5 MG/0.5 ML SYR IV PRN ×3 (05:15→21:30)
[2023-03-01 06:05] LABS: Hematocrit (blood only) 31.7 % (37.0-47.0); Hemoglobin 10.8 g/dl (12.0-16.0); Mean Corpuscular Hemoglobin 30.6 pg (25.0-34.0); Mean Corpuscular Hgb Conc 34.1 g/dL (32.0-36.0); Mean Corpuscular Volume 89.8 fL (80.0-100.0); Mean Platelet Volume 9.9 fL (9.4-12.4); Platelet Count 300 K/uL (130-400); RDW Coefficient of Variation 13.2 % (11.5-14.5); RDW Standard Deviation 43.4 fL (36.4-46.3); Red Blood Count 3.53 M/uL (4.20-5.40); White Blood Count 12.44 K/ul (4.8-10.8)
[2023-03-01 06:17] LABS: BUN Creatinine Ratio 28.6 (10-20); Creatinine Clr Calc Pharmacy 54.8 ml/min; Est GFR (African American) 93.5 ml/min; Est GFR (Non-African American) 80.6 ml/min; Magnesium 1.8 mg/dl (1.7-2.4)
[2023-03-01 06:21] LABS: Basophils # (auto) 0.02 K/uL (0-0.2); Basophils % (auto) 0.2 %; Eosinophils # (auto) 0.01 K/uL (0-0.50); Eosinophils % (auto) 0.1 %; Immature Granulocytes # (auto) 0.04 K/uL (0.01-0.20); Immature Granulocytes % (auto) 0.3 %; Lymphocytes % (auto) 3.2 %; Monocytes # (auto) 0.62 K/uL (0.11-0.59); Neutrophils # (auto) 11.35 K/uL (1.40-6.50); Neutrophils % (auto) 91.2 %
[2023-03-01] MEDS: FORMOTEROL 20 MCG/2 ML VIAL INH SCH ×2 (07:01→20:01)
[2023-03-01] MEDS: BUDESONIDE 0.25 MG/2 ML VIAL (PULMICORT) INH SCH ×2 (07:01→19:19)
[2023-03-01] MEDS ORDERED: ROPIVACAINE 0.5% 5 MG/ML 30 ML VIAL ONE (07:45)
[2023-03-01] MEDS ORDERED: ENALAPRILAT 0.625 MG in SYRINGE 9.5 ML IV ONE ×2 (09:39→10:00)
[2023-03-01] MEDS: amLODIPine BESYLATE 5 MG TAB PO SCH (10:38)
[2023-03-01] MEDS: FUROSEMIDE 40 MG TAB PO SCH (10:38)
[2023-03-01] MEDS: DOCUSATE SODIUM/SENNA 50/8.6MG TAB PO SCH (10:38)
[2023-03-01] MEDS: MULTIVITAMIN TAB PO SCH (10:38)
[2023-03-01] MEDS: ENALAPRIL MALEATE 10 MG TAB PO SCH (10:38)
[2023-03-01] MEDS: ASPIRIN 81 MG ECTAB PO SCH ×2 (10:38→20:35)
[2023-03-01] MEDS: CHOLECALCIFEROL 1,000 UNITS 25 MCG TAB PO SCH (10:38)
[2023-03-01] MEDS: FLUTICASONE PROPIONATE NA SPR 16 GM BTL SCH ×2 (11:24→22:22)
[2023-03-01] MEDS: IPRATROPIUM BROMIDE NASAL SPRAY 0.06% 15ML SCH ×3 (11:24→22:22)
[2023-03-01] MEDS ORDERED: LIDOCAINE 2% 2 ML VIAL/AMP(20MG/ML) INFIL ONE (11:26)
[2023-03-01] MEDS ORDERED: PROPOFOL IV EMULSION 10 MG/ML 20 ML VIAL IV ONE (11:26)
[2023-03-01] MEDS ORDERED: fentaNYL citrate PF 100 MCG/2 ML VIAL ONE ×2 (11:26→15:15)
--- NOTE | 2023-03-01 11:34 | Anesthesiology Consultation ---
Date of Service March 01, 2023 Assessment & Plan (1) Encounter for pre-operative examination: Chart Review Chart Review: Acceptable Risk for Surgery History Surgery Operation Date: 03/01/23 11:35 Proposed Procedures p Right Bipolar Hemiarthroplasty - Ruddy Hancock MD Height/Weight Height: 5 ft 5 in Weight: 55.1 kg Allergies Allergy/AdvReac Type Severity Reaction Status Date / Time bee venom protein (honey bee) Allergy Mild RASH Verified 02/28/23 03:05 nickel AdvReac Mild Redness of Verified 02/28/23 03:05 Skin Medications Home Medications Medication Instructions Recorded Confirmed Last Taken amlodipine 10 mg tablet 10 mg PO DAILY 09/15/19 02/28/23 06/15/22 enalapril maleate 10 mg tablet 10 mg PO DAILY 09/15/19 02/28/23 06/15/22 epinephrine 0.3 mg/0.3 mL 0.3 mg IM UD PRN Allergic Reaction 09/15/19 02/28/23 Unknown injection, auto-injector (EpiPen) simvastatin 20 mg tablet 20 mg PO QPM 09/15/19 02/28/23 06/14/22 aspirin 81 mg tablet,delayed 81 mg PO DAILY 03/09/21 02/28/23 06/15/22 07:00 release multivitamin 1 tab PO DAILY 11/30/21 02/28/23 06/15/22 levalbuterol HCl 0.63 mg/3 mL 0.63 mg (3 mL) NEB Q6H PRN 12/14/21 02/28/23 06/15/22 14:00 solution for nebulization shortness of breath or wheezing 30 days #480 mL pseudoephedrine HCl 120 mg 120 mg PO Q12H PRN Congestion 05/03/22 02/28/23 06/15/22 07:00 tablet,extended release (Sudafed 12 Hour) ipratropium bromide 42 mcg (0.06 2 spray intranasal TID #15 mL 05/22/22 02/28/23 06/15/22 07:00 %) nasal spray ipratropium bromide 0.02 % 0.5 mg (2.5 mL) inhalation Q6H PRN 06/07/22 02/28/23 06/15/22 14:00 solution for inhalation shortness of breath or wheezing 30 days #300 mL azithromycin 250 mg tablet 250 mg PO .COMPLEX #36 tabs 07/10/22 02/28/23 Unknown arformoterol 15 mcg/2 mL solution 2 ml inhalation AMHS 02/28/23 02/28/23 Unknown for nebulization (Brovana) budesonide 0.25 mg/2 mL suspension 0.25 mg inhalation AMHS 02/28/23 02/28/23 Unknown for nebulization cholecalciferol (vitamin D3) 50 50 mcg PO QAM 02/28/23 02/28/23 Unknown mcg (2,000 unit) tablet (Vitamin D3) fluticasone propionate 50 2 spray intranasal BID 02/28/23 02/28/23 Unknown mcg/actuation nasal spray,suspension furosemide 40 mg tablet 40 mg PO QAM 02/28/23 02/28/23 Unknown ipratropium 0.5 mg-albuterol 3 mg 3 ml inhalation Q8H PRN 02/28/23 02/28/23 Unknown (2.5 mg base)/3 mL nebulization SOB,wheezing or dyspnea soln revefenacin 175 mcg/3 mL solution 175 mcg inhalation QAM 02/28/23 02/28/23 Unknown for nebulization (Dave) sennosides 8.6 mg-docusate sodium 1 tab-cap PO QAM 02/28/23 02/28/23 Unknown 50 mg tablet Active Medications Generic Name Dose Route Start Last Admin Trade Name Freq PRN Reason Stop Dose Admin Amlodipine Besylate 10 mg 02/28/23 09:00 03/01/23 10:38 Amlodipine Besylate 5 Mg Tab PO 03/30/23 08:59 Not Given DAILY SHARITA Aspirin 81 mg 02/28/23 09:00 03/01/23 10:38 Aspirin 81 Mg Ectab PO 03/30/23 08:59 Not Given DAILY SHARITA Azithromycin 250 mg 02/28/23 09:00 02/28/23 11:11 Azithromycin 250 Mg Tab PO 03/30/23 08:59 Not Given [id number] SHARITA Budesonide 0.25 mg 02/28/23 09:00 03/01/23 07:01 Budesonide 0.25 Mg/2 Ml Vial (Pulmicort) INH 03/30/23 08:59 Not Given BIDR SHARITA Enalapril Maleate 10 mg 02/28/23 09:00 03/01/23 10:38 Enalapril Maleate 10 Mg Tab PO 03/30/23 08:59 Not Given DAILY SHARITA Fluticasone Propionate 2 sprays 02/28/23 09:00 03/01/23 11:24 Fluticasone Propionate Na Spr 16 Gm Btl NA 03/30/23 08:59 Not Given BID SHARITA Formoterol Fumarate 20 mcg 02/28/23 09:00 03/01/23 07:01 Formoterol 20 Mcg/2 Ml Vial INH 03/30/23 08:59 20 mcg BIDR SHARITA Administration Furosemide 40 mg 02/28/23 09:00 03/01/23 10:38 Furosemide 40 Mg Tab PO 03/30/23 08:59 Not Given QAM [facility] Hydromorphone HCl 0.5 mg 02/28/23 06:40 03/01/23 09:43 Hydromorphone Inj 0.5 Mg/0.5 Ml Syr IV 03/14/23 06:39 0.5 mg Q3H PRN Administration Pain Ipratropium [place] 2 sprays 02/28/23 09:00 03/01/23 11:24 Ipratropium [place] Nasal [place] 0.06% 15ml NA 03/30/23 08:59 Not Given TID [facility] Miscellaneous 1 each 02/28/23 08:00 03/01/23 09:05 Yupelri (Revefenacin)--Order Awaiting Action N/A 03/30/23 07:59 Not Given QS [facility] Multivitamins 1 tab 02/28/23 09:00 03/01/23 10:38 Multivitamin Tab PO 03/30/23 08:59 Not Given DAILY [facility] Senna/Docusate Sodium 1 tab 02/28/23 09:00 03/01/23 10:38 Docusate Sodium/Senna 50/8.6mg Tab PO 03/30/23 08:59 Not Given QAM [facility] Simvastatin 20 mg 02/28/23 21:00 02/28/23 20:50 Simvastatin 20 Mg Tab PO 03/30/23 20:59 Not Given QPM [facility] Vitamin D 2,000 units 02/28/23 09:00 03/01/23 10:38 Cholecalciferol 1,000 Units 25 Mcg Tab PO 03/30/23 08:59 Not Given QAM [facility] Past Medical History Medical History (Updated 03/01/23 @ 11:30 by Roger العراقي MD) COPD, moderate on O2 High cholesterol HTN (hypertension) Past Family History Family History Other No pertinent family history Past Surgical History Surgical History H/O tubal ligation "1973" History of appendectomy S/P hip hemiarthroplasty Social History Smoking Status: Former smoker tobacco type: cigarettes Do You Dip or Chew Tobacco: No Hx Alcohol Use: Yes Alcohol type: wine alcohol intake frequency: holidays/special occasions only Hx Substance Use: No Physical Exam Vital Signs Last Vital Signs Temp 37.5 C 03/01/23 11:28 Pulse 102 H 03/01/23 11:28 Resp 16 03/01/23 11:28 BP 159/79 H 03/01/23 11:28 Pulse Ox 92 03/01/23 11:28 O2 Del Method Nasal Cannula 03/01/23 11:28 O2 Flow Rate 3 03/01/23 11:28 Testing Laboratory Results 03/01/23 05:37 03/01/23 05:37 PT 10.9 Seconds (9.0-12.0) 02/28/23 03:05 INR 1.0 (0.9-1.1) 02/28/23 03:05 APTT 25.1 Seconds (21.0-31.0) 02/28/23 03:05 Urine Color Yellow 02/28/23 05:00 Urine Appearance Clear (Clear) 02/28/23 05:00 Urine pH 8.0 (4.5-7.5) H 02/28/23 05:00 Ur Specific [place] 1.014 (1.000-1.030) 02/28/23 05:00 Urine Protein 2+ (Negative) H 02/28/23 05:00 Urine Glucose (UA) Negative (Negative) 02/28/23 05:00 Urine Ketones Negative (Negative) 02/28/23 05:00 Urine Nitrite Negative (Negative) 02/28/23 05:00 Ur Leukocyte Esterase Negative (Negative) 02/28/23 05:00 Urine WBC (Auto) 1-5 /hpf (0-5) 02/28/23 05:00 Urine RBC (Auto) 0-4 /hpf (0-4) 02/28/23 05:00 U Hyaline Cast (Auto) 0 /lpf (0-5) 02/28/23 05:00 U Epithel Cells (Auto) 5-10 /lpf (0-5) H 02/28/23 05:00 Urine Bacteria (Auto) Negative (Negative) 02/28/23 05:00 Blood Type O Positive 03/01/23 05:37 Antibody Screen NEGATIVE 03/01/23 05:37 Electrocardiogram Date: 02/28/23 Findings: + ST @ (108) PAC's PVC's Echocardiogram Date: 06/17/22 EF: 65-70% Valvular Disease: + no significant valvular disease
[2023-03-01] MEDS ORDERED: BUPIVACAINE 0.5 % 5 MG/1 ML PF 10ML VIAL ONE (11:50)
[2023-03-01] MEDS ORDERED: BUPIVACAINE/EPINEPHRINE 0.25% 1:200,000 30 ML VIAL ONE (12:01)
[2023-03-01] MEDS ORDERED: SODIUM CHLORIDE 0.9% PF 50 ML VIAL ONE (12:01)
--- NOTE | 2023-03-01 12:02 | History & Physical Bridge Note ---
Date of Service March 01, 2023 History & Physical Bridge Note I have examined the patient, reviewed the History & Physical and in the interval since the performance of the History & Physical I have noted the following changes of clinical significance: no changes noted
[2023-03-01] MEDS ORDERED: ATROPINE SULFATE 0.1 MG/ML 10ML SYR IV PRN ×2 (12:24→15:24)
[2023-03-01] MEDS ORDERED: HYDROmorphone INJ 1 MG/ML SYRINGE IV PRN (12:24)
[2023-03-01] MEDS ORDERED: KETOROLAC 30 MG/ML VIAL IV PRN (12:24)
[2023-03-01] MEDS ORDERED: ePHEDrine sulfate 50 MG/ML AMP IV PRN ×2 (12:24→15:24)
[2023-03-01] MEDS ORDERED: ceFAZolin 330 MG/ML 1 GM VIAL ONE (13:06)
[2023-03-01] MEDS ORDERED: ceFAZolin 1000MG 1,000 MG/7.5 ML SYR IV STA (13:38)
--- NOTE | 2023-03-01 14:24 | Operative Report ---
PG Post Operative Report Pre & Post Diagnosis Operation Date: 03/01/23 11:35 Pre-Op Diagnosis: Closed right femoral neck fracture. Post-Op Diagnosis: Closed right femoral neck fracture. I identified the patient and participated in the time-out.: Yes Procedure Operation Date: 03/01/23 11:35 Actual Procedures p Right hip bipolar Hemiarthroplasty(Right) - Ruddy Hancock MD Surgeon Ruddy Hancock MD Cemetery Worker Nithin Laird PA-C Estimated Blood Loss 100 Findings Consistent with Post-Op Diagnosis Displaced right femoral neck fracture with minimal comminution. [employer] bipolar hemiarthroplasty implants: Size 10 Taperloc (standard offset) 45 mm bipolar shell 28 mm ceramic head with a 0 neck. Specimens femoral head sent for pathology Complications none Disposition Accompanied Patient To Recovery: No Disposition: Surgical ICU Indications 87-year-old female sustained fall at home resulting immediate pain and inability to weight-bear. She was brought to the [facility] emergency room where she was diagnosed with a displaced femoral neck fracture. She was treated for a left femoral neck fracture in 2019. She was seen by our consult team and indicated for surgery today. I discussed with her daughter the plan to treat this right femoral neck fracture much the same as her left femoral neck fracture years ago. 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 We have had good success with the bipolar hemiarthroplasty on the left hip. I recommended the same for the right. We reviewed the risks and benefits in detail. She was agreeable to proceed. Consent was signed by her daughter, who is the power of title attorney. Description of Procedure On the day of surgery was agreed in the preoperative holding area with informed consent was reviewed and confirmed by the patient. The the operative extremity was identified by the patient and then signed by myself. She was then turned over anesthesia, who performed a spinal anesthetic in the preoperative holding area. Anesthesia took the patient to the operating room and positioned upon the OR table. She was then positioned for surgery in the lateral decubitus position for right hip surgery. All bony prominences were well-padded. A Stulberg positioner was used to hold the pelvis firmly in the lateral decubitus position. The right lower extremity then prepped and draped in usual sterile fashion. Surgical timeout was called by the circulating nurse and verified by all present. Laterality was confirmed and appropriate equipment and implants were available and functional. Surgery was initiated by creating a standard posterior approach to the hip with a sharp incision over the greater trochanter measuring at least 10 cm. Dissection was carried out using Bovie electrocautery for hemostasis. The IT Band fascia was then identified and exposed. We marked the midpoint to plan for a accurate repair of the IT band. Then used a 10 blade to incise to the IT band and carried up into the muscular tissues of the gluteus cyrus. We spread in line with the raphe and carried the opening of the fascia down distally to approximately the gluteal sling. The Charnley self-retaining retractor was then placed to hold open the fascial incision. We then internally rotated the hip and exposed the bursa which was taken down using the Bovie. We exposed the short external rotators and the piriformis tendon which was identified. We then tagged the piriformis and short external hip rotators with separate Ti-Cron sutures. We then used a Bovie to take down the piriformis and short external rotators with caution for the nearby sciatic nerve. We internally rotated the hip to expose the hip capsule we removed soft tissue by scraping with a lap sponge. Then performed a capsulotomy in a T-shaped fashion across the base of the neck and extending along the course of the neck. We tacked the corners with #2 Ethibond sutures. The femoral neck fracture was then exposed. The hematoma was evacuated. Bovie electrocautery was used to williams the planned neck cut approximately 1 fingerbreadth above the lesser trochanter. Sagittal saw was then used to complete this cut. We then used a rongeur to to remove excess bone on the lateral aspect of the femoral neck. We then worked to remove the femoral head first using a corkscrew and next using the tenaculum. The acetabulum was cleared of debris and appeared to have healthy cartilage. We did remove some excess capsular tissue in the most inferior aspect to ensure we did not have tissue blocking our reduction. Adequate hemostasis was achieved. We then sized the acetabulum using the ball shaped sizers. We had a good suction fit and fill using a 45 template, matching the size used for her other hip several years ago. The Charnley retractor was then removed. The femoral intertrochanteric was then exposing the femoral retractors. The double foot retractor was placed under the femoral neck. Sharp Hohmann was placed behind the abductor sling. This exposed the entrance to the femoral canal well. We used a final cigar and box examiner to remove excess lateral femoral neck and access the intertrochanteric region. We then used a canal finder to access the canal. The lateralizing reamer was then placed into this canal and used to remove excess bone from the lateral aspect of the greater trochanter to ensure no induced varus. We then began our broach sequence. A size 4 broach was then used to initiate and find the canal. This was sunk easily. We then moved sequentially from a size 5 up to a size 8 broach. This had adequate fill and fit. We used the broach to rasp the lateral aspect of our canal entrance. We then sunk the 8 while ensuring appropriate version which was marked on the base of the femoral neck. The size 8 broach was left in place for trialing. We put on a standard neck and 45 head. This appeared to be an adequate fit and adequate christianity of leg length and excellent stability. Provided the ability to externally rotate the foot in full extension approximately 30 degrees. Hip flexed past 90 with good stability and internally rotated approximately 60 degrees before liftoff inside the acetabulum. There was excellent mid flexion stability with no shuck or toggle. We then removed our trial implants. The size 8 stem broach seem to have subsided during the trialing. For that reason, we tried the 9 broach which did sink well. After resting the lateral trochanter a little more, the size 10 broach did fit down to the level of our cut. It had excellent fill and capture. Size 10 was then chosen. The canal was thoroughly irrigated using pulse lavage and cleared of debris and lavage fluid. The acetabulum was also irrigated once again. We then placed the final size 10 stem down in the canal and used the positioner device to ensure appropriate rotation, before sinking the final implant down to the level of neck cut. It had good capture of the femur. There was no evidence of fracture. The joint was then thoroughly irrigated with pulse lavage. We then began our closing sequence. A 2 mm drill bit was used to access the piriformis fossa for capsular repair. #5 Ethibond was used to capture the capsule as well as the piriformis. The original #2 Ethibond and then the #5 Ethibond was passed through to separate 2 mm drill positions to reconstitute the posterior capsule and short external rotators. A firm knot was tied after passing the sutures through the bone tunnel. We irrigated once again thoroughly. We then positioned the hip in anatomic position and began closure of the IT band and fascial layer. For this we use #1 Vicryl suture in a running and interrupted fashion. Then thoroughly irrigated once again. We then closed the fatty layer using interrupted size 0 Vicryl suture in the deep subcutaneous fat layers, followed by interrupted 2-0 Polysorb suture in the subcuticular layer. The final skin closure was performed with pa. The wound was then cleansed and dressed with sterile Xeroform, sterile gauze, and ABD.Ioban was used to hold her dressing. The patient tolerated procedure well. She awoke from anesthesia without complication in the operating room. She was rolled supine and an abduction pillow was placed. She was transferred onto her hospital bed and then escorted to the PACU by anesthesia in stable condition. Disposition: She will be weightbearing as tolerated and begin physical therapy as soon as possible. We will use routine DVT prophylaxis consisting of oral aspirin therapy. We will get postoperative x-ray in the PACU. Surgical findings and plan ahead will be reviewed with the family members. Physician accounts payable assistant attestation: Nithin Laird PA-C was present and scrubbed for the duration of the case. He was essential to prepping/draping, patient positioning, retraction, and assistance with wound closure. I attest to the content of the Intraoperative Record and any orders documented therein. Any exceptions are noted below.
[2023-03-01] MEDS ORDERED: ALBUT/IPRATROP 3MG/0.5MG NEB 3 ML VIAL NEB STA (14:37)
--- NOTE | 2023-03-01 14:50 | Anesthesiology Progress Note ---
Date of Service March 01, 2023 Anesthesia Post Procedure Vital Signs Vital Signs: Temp Pulse Pulse Pulse Resp BP Pulse Ox 03/01/23 14:43 107 H 24 92 03/01/23 12:22 99.6 F 99 H 20 156/76 H 93 03/01/23 12:08 104 H 22 92 03/01/23 11:28 99.5 F 102 H 16 159/79 H 92 03/01/23 07:58 99.0 F 101 H 20 175/68 H 91 03/01/23 07:02 103 H 03/01/23 07:02 105 H 17 92 03/01/23 04:00 98.8 F 101 H 18 137/80 93 03/01/23 00:26 104 H 02/28/23 22:56 02/28/23 22:56 98.4 F 101 H 20 174/81 H 94 02/28/23 20:08 108 H 23 163/83 H 93 02/28/23 19:00 103 H 30 H 167/92 H 95 02/28/23 19:01 103 H 25 H 95 02/28/23 14:52 106 H O2 Del Method O2 Flow Rate 03/01/23 14:43 Nasal Cannula 3 03/01/23 12:22 Nasal Cannula 3 03/01/23 12:08 Room Air 03/01/23 11:28 Nasal Cannula 3 03/01/23 07:58 Nasal Cannula 3 03/01/23 07:02 03/01/23 07:02 Nasal Cannula 3 03/01/23 04:00 Nasal Cannula 3 03/01/23 00:26 02/28/23 22:56 Nasal Cannula 4 02/28/23 22:56 Nasal Cannula 4 02/28/23 20:08 Nasal Cannula 5 02/28/23 19:00 Nasal Cannula 5 02/28/23 19:01 Nasal Cannula 5 02/28/23 14:52 Pain Intensity Right Hip: Pain Intensity: 10 Transfer of Care Handoff Completed per policy Notes Mental Status: alert / awake / arousable and participated in evaluation Patient Amnestic to Procedure: Yes Nausea / Vomiting: adequately controlled Pain: adequately controlled Airway Patency, RR, SpO2: stable & adequate BP & HR: stable & adequate Hydration State: stable & adequate Neuraxial Anesthesia: was administered and sensory block is resolving Anesthetic Complications: no major complications apparent and Pt Satisfied with anesthetic care
[2023-03-01] MEDS ORDERED: LABETALOL HCL IV 5 MG/ML 20ML IV ONE (15:06)
[2023-03-01] MEDS ORDERED: LABETALOL HCL IV 5 MG/ML 20ML IV STA (15:07)
[2023-03-01] MEDS ORDERED: ONDANSETRON INJ 2 MG/ML 2 ML VIAL IV PRN (15:24)
[2023-03-01] MEDS ORDERED: HYDROmorphone INJ 2 MG/ML SYR/VIAL IV PRN (15:24)
[2023-03-01] MEDS ORDERED: fentaNYL citrate PF 100 MCG/2 ML VIAL IV PRN (15:24)
--- NOTE | 2023-03-01 15:58 | XRay Report ---
AP AND CROSSTABLE LATERAL RIGHT HIP History: Right total hip arthroplasty. Right hip fracture. Postop. FINDINGS: The patient is status post a right hip hemiarthroplasty. The hardware is intact. No fractur e or dislocation. Skin pa are in place. IMPRESSION: Right hip hemiarthroplasty. No evidence for hardware complication ACT 112: Negative or not required by law. Electronically signed by: Arjun Shultz M.D. 03/01/2023 3:56 PM
--- NOTE | 2023-03-01 19:04 | Hospitalist Progress Note ---
Date of Service March 01, 2023 Assessment & Plan (1) Acute pain of right hip: Plan Patient is an 87 y- female who presents status post fall and right hip fracture. Right femur fracture Secondary to fall -Hip X ray:Acute mildly comminuted, impacted and displaced subcapital right femo ral fracture. -S/P right hip bipolar hemiarthroplasty by Dr. Hancock on 03/01/2023 Pain control Fall precautions Appreciate orthopedics input PT OT as able Continue wound care Monitor for postop anemia COPD Chronic respiratory failure with hypoxia--on 2 L at baseline CXR:Emphysema without acute process. Continue supplemental oxygen to keep saturations 88 to 92% Continue home inhalers HTN BP mildly elevated Continue amlodipine, enalapril Also on Lasix Lower extremity edema Recently started on Lasix ECHO done in June 2022 showed EF of 65% to 70%. Monitor volume status H/O Pulmonary hypertension Continue home medications Hyperlipidemia: Continue statin DVT Px: SCDs for now CODE STATUS: DNR/DNI Admission and Anticipated Discharge Date Admission Date: February 28, 2023 Subjective Patient is seen and examined at bedside Patient had right hip hemiarthroplasty today Denies any significant right hip pain this morning prior to surgery Offers no new complaints Denies any chest pain, dyspnea Review of Systems Review of Systems: All systems reviewed & are unremarkable except as noted in Subjective Physical Exam Physical Exam: Physical Exam: Vitals signs as noted above General Appearance: Chronic ill-appearing, elderly, mild distress Head: normocephalic, Atraumatic Eyes: normal inspection, EOMI Neck: supple, Trachea midline Respiratory/Chest: Normal breath sounds, CTA, No accessory muscle use Cardiovascular: S1, S2, No murmur Abdomen/GI:Soft, Non tender, Bowel sounds present Extremities/Musculoskeletal:normal inspection, + pedal edema, right lower extremity decreased range of movement, flexed Neurologic/Psych:AAOX2, grossly no focal neurological deficits Skin: normal color, warm Results & Data Results & Data Vital Signs (Past 12 Hours) Vital Signs Temp Pulse Pulse Resp BP Pulse Ox O2 Del Method 03/01/23 17:30 37.1 C 101 H 18 170/79 H 93 Non-rebreather 03/01/23 16:46 37.2 C 95 H 18 166/78 H 96 Oxymask 03/01/23 16:12 37.2 C 104 H 20 166/78 H 91 Nasal Cannula 03/01/23 15:50 94 H 14 157/77 H 96 Oxymask 03/01/23 15:40 37.4 C 90 18 161/76 H 96 Oxymask 03/01/23 15:30 89 18 152/82 H 95 Oxymask 03/01/23 15:20 95 H 16 153/83 H 93 Oxymask 03/01/23 15:10 94 H 15 165/85 H 93 Oxymask 03/01/23 15:00 114 H 17 188/87 H 95 Oxymask 03/01/23 14:50 113 H 19 198/89 H 96 Oxymask 03/01/23 14:40 103 H 17 192/95 H 95 Oxymask 03/01/23 09:30 Nasal Cannula 03/01/23 14:30 104 H 13 171/101 H 97 Oxymask 03/01/23 14:23 37.1 C 104 H 14 156/85 H 95 Oxymask 03/01/23 14:43 107 H 24 92 Nasal Cannula 03/01/23 12:22 37.6 C 99 H 20 156/76 H 93 Nasal Cannula 03/01/23 12:08 104 H 22 92 Room Air 03/01/23 11:28 37.5 C 102 H 16 159/79 H 92 Nasal Cannula 03/01/23 07:58 37.2 C 101 H 20 175/68 H 91 Nasal Cannula O2 Flow Rate 03/01/23 17:30 5 03/01/23 16:46 5 03/01/23 16:12 4 03/01/23 15:50 3 03/01/23 15:40 3 03/01/23 15:30 4 03/01/23 15:20 4 03/01/23 15:10 4 03/01/23 15:00 4 03/01/23 14:50 4 03/01/23 14:40 6 03/01/23 09:30 3 03/01/23 14:30 6 03/01/23 14:23 6 03/01/23 14:43 3 03/01/23 12:22 3 03/01/23 12:08 03/01/23 11:28 3 03/01/23 07:58 3 Laboratory Results Short CBC 03/01/23 Range/Units 05:37 WBC 12.44 H (4.8-10.8) K/ul Hgb 10.8 L (12.0-16.0) g/dl Hct 31.7 L (37.0-47.0) % Plt Count 300 (130-400) K/uL [facility] 03/01/23 05:37 Sodium 133 L Potassium 4.0 Chloride 96 L Carbon Dioxide 29 BUN 18 Creatinine 0.63 Glucose 103 H Calcium 9.0
[2023-03-01] MEDS: SIMVASTATIN 20 MG TAB PO SCH (20:35)
[2023-03-01] MEDS ORDERED: ENALAPRILAT 1.25 MG in DEXTROSE 5% 25 ML IV PRN (21:09)
[2023-03-01] MEDS: ceFAZolin 2000MG 2,000 MG/15 ML SYR IV SCH (21:36)
[2023-03-02] MEDS: HYDROmorphone INJ 0.5 MG/0.5 ML SYR IV PRN (02:30)
[2023-03-02] MEDS: YUPELRI 175 MCG/3 ML EXT SCH ×2 (03:43→09:46)
[2023-03-02] MEDS: ceFAZolin 2000MG 2,000 MG/15 ML SYR IV SCH (04:08)
[2023-03-02] MEDS ORDERED: XOPENEX/ATROVENT 1.25mg/0.5MG NEB COMBO NEB STA (05:21)
[2023-03-02] MEDS ORDERED: FUROSEMIDE INJ 20 MG/2 ML VIAL IV ONE (05:25)
[2023-03-02] MEDS ORDERED: IPRATROPIUM BROMIDE NEB SOLN 0.02% 2.5 ML VIAL INH STA (05:36)
[2023-03-02] MEDS ORDERED: LEVALBUTEROL 1.25 MG/3 ML NEB NEB STA (05:36)
[2023-03-02 06:08] LABS: Hematocrit (blood only) 30.6 % (37.0-47.0); Hemoglobin 10.2 g/dl (12.0-16.0); Mean Corpuscular Hemoglobin 30.3 pg (25.0-34.0); Mean Corpuscular Hgb Conc 33.3 g/dL (32.0-36.0); Mean Corpuscular Volume 90.8 fL (80.0-100.0); Mean Platelet Volume 10.1 fL (9.4-12.4); Platelet Count 257 K/uL (130-400); RDW Coefficient of Variation 13.3 % (11.5-14.5); RDW Standard Deviation 44.3 fL (36.4-46.3); Red Blood Count 3.37 M/uL (4.20-5.40); White Blood Count 10.06 K/ul (4.8-10.8)
[2023-03-02 06:09] LABS: iSTAT Allen Test Pass; iSTAT Art Bld Gas pCO2 Correct 57 mmHg (35-46); iSTAT Art Bld Gas pH Corrected 7.376 (7.35-7.45); iSTAT Arterial Blood Gas HCO3 33 meg/L (19-24); iSTAT Arterial Blood Gas pCO2 57 mmHg (35-46); iSTAT Arterial Blood Gas pH 7.38 (7.35-7.45); iSTAT Arterial Blood Gas pO2 76 mmHg (80-95); iSTAT Arterial Blood Gas pO2 C 76; iSTAT Carbon Dioxide 35 mmol/L (24-31); iSTAT Hematocrit 30 % (37-47); iSTAT Hemoglobin 10.2 g/dl (12.0-16.0); iSTAT Potassium 3.8 mmol/L (3.3-5.0); iSTAT Site R Radial; iSTAT Sodium 134 mmol/L (135-144)
[2023-03-02 06:20] LABS: BUN Creatinine Ratio 36.5 (10-20); Creatinine Clr Calc Pharmacy 54.7 ml/min; Est GFR (African American) 93.5 ml/min; Est GFR (Non-African American) 80.6 ml/min; Potassium 3.8 mmol/L (3.5-5.1)
[2023-03-02] MEDS ORDERED: OPTIRAY 320 500ml IV ONE (06:48)
[2023-03-02 06:57] LABS: Troponin I High Sensitivity 48.1 pg/ml (0-14)
[2023-03-02] MEDS ORDERED: BUDESONIDE 0.5 MG/2 ML VIAL (PULMICORT) NEB STA (07:02)
[2023-03-02] MEDS: BUDESONIDE 0.25 MG/2 ML VIAL (PULMICORT) INH SCH ×2 (07:23→19:48)
[2023-03-02] MEDS: FORMOTEROL 20 MCG/2 ML VIAL INH SCH ×2 (07:23→19:48)
[2023-03-02] MEDS ORDERED: methylPREDNISolone 40 MG in SYRINGE 0 ML IV ONE (07:30)
--- NOTE | 2023-03-02 07:32 | CT Scan Report ---
CHEST CTA for PULMONARY ARTERIES CT DOSE: 297.89 mGy.cm HISTORY: Shortness of breath. TECHNIQUE: Multiaxial CT images of the chest were performed following the intravenous administration of contrast to evaluate the pulmonary arteries. Maximal intensity projection images were also obtaine d. A dose lowering technique was utilized adhering to the principles of ALARA. COMPARISON STUDY: Chest CT 03/17/2021. FINDINGS: Limited views the upper abdomen demonstrate normal liver and spleen. Adrenal gland thickeni ng persists and is likely age-related. There are trace bilateral pleural effusions. No pericardial ef fusion. The heart remains mildly enlarged. Mild circumferential thickening of the esophagus. No media stinal or hilar lymphadenopathy. Moderate calcified plaque within the thoracic aorta with no evidence for a dissection. The ascending thoracic aorta measures up to 4 cm in diameter. This remains unchang ed. Moderate coronary artery calcifications are noted. Small filling defect seen within the lingular segmental/subsegmental pulmonary arteries best seen on images 139 through 146. This is consistent wit h pulmonary emboli. The remaining pulmonary arteries are patent. No evidence for right-sided heart st rain at this time. No acute fractures within the chest. No pneumothorax. Biapical pleural-parenchymal scarlike densities persist. There is a new small peripheral irregular density within the left upper lobe on image 224 measuring 9 mm. Moderate emphysema again noted. Bibasilar linear densities consiste nt with subsegmental atelectasis. A few additional small subpleural densities within the lower lobes posteriorly. These areas favor dependent change/atelectasis. Mild interstitial thickening within the upper to midlung zones which may represent developing congestive change. IMPRESSION: 1. Lingular segmental/subsegmental pulmonary emboli. 2. No evidence for right-sided heart strain. 3. Mild cardiomegaly with interlobular septal thickening and trace bilateral pleural effusions. This favors developing pulmonary edema. 4. Small peripheral irregular densities within the lungs posteriorly which favor dependent change/ate lectasis. 5. Moderate emphysema. 6. Additional findings as described above. ACT 112: Negative or not required by law. Electronically signed by: Arjun Shultz M.D. 03/02/2023 7:31 AM
--- NOTE | 2023-03-02 07:33 | XRay Report ---
XR chest 1V portable HISTORY: Shortness of breath. COMPARISON: Chest 02/28/2023. FINDINGS: Emphysema. No pneumothorax. No pleural effusions. The cardiac silhouette is top normal in s ize. There is a tortuous and calcified thoracic aorta again noted. A few left basilar linear densitie s favor subsegmental atelectasis. Progressive interstitial thickening within the upper lung zones may represent developing congestive change. No acute fractures identified. No new focal lung consolidati ons. IMPRESSION: 1. Emphysema. 2. Progressive interstitial thickening within the upper lung zones may represent developing congestiv e change. ACT 112: Negative or not required by law. Electronically signed by: Arjun Shultz M.D. 03/02/2023 7:32 AM
--- NOTE | 2023-03-02 08:51 | Communication Note ---
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 Hx of cpd and on home oxygen 2lts. Was requiring 6lts. Alert and awake.Gave neb tx, ON exam no obvious wheezing or crackles. gave iv Lasix 20mg. cxr seems ok. Abg ok. After neb says slight improvement but still tachypneic. Hr in 115 to 120's. Initially no chest pain but later says mild chest discomfort. Ekg poor quality. Ordered serial troponin, CT PE study.Echo. Morning labs drawn. Ordered a dose of iv solumedrol.Transferred to tele for close monitoring. Notified Am providers.
[2023-03-02] MEDS: ENALAPRIL MALEATE 10 MG TAB PO SCH (09:15)
[2023-03-02] MEDS: FUROSEMIDE 40 MG TAB PO SCH (09:16)
[2023-03-02] MEDS: amLODIPine BESYLATE 5 MG TAB PO SCH (09:16)
[2023-03-02] MEDS: AZITHROMYCIN 250 MG TAB PO SCH (09:16)
[2023-03-02] MEDS: ASPIRIN 81 MG ECTAB PO SCH ×2 (09:45→20:07)
[2023-03-02] MEDS: MULTIVITAMIN TAB PO SCH (09:46)
[2023-03-02] MEDS: DOCUSATE SODIUM/SENNA 50/8.6MG TAB PO SCH (09:46)
[2023-03-02] MEDS: CHOLECALCIFEROL 1,000 UNITS 25 MCG TAB PO SCH (09:46)
[2023-03-02] MEDS: FLUTICASONE PROPIONATE NA SPR 16 GM BTL SCH ×2 (10:14→20:07)
[2023-03-02] MEDS: IPRATROPIUM BROMIDE NASAL SPRAY 0.06% 15ML SCH ×3 (10:15→20:07)
[2023-03-02] MEDS: oxyCODONE HCL IR 5 MG TAB (IMMEDIATE RELEASE) PO PRN ×2 (10:35→15:01)
[2023-03-02] MEDS ORDERED: LABETALOL HCL IV 5 MG/ML 20ML IV PRN (14:59)
--- NOTE | 2023-03-02 15:27 | Electrocardiogram Report ---
Test Reason : Blood Pressure : / mmHG Vent. Rate : 119 BPM Atrial Rate : 119 BPM P-R Int : 184 ms QRS Dur : 078 ms QT Int : 298 ms P-R-T Axes : 077 039 060 degrees QTc Int : 419 ms Sinus tachycardia Possible Inferior infarct , age undetermined Abnormal ECG When compared with ECG of 28-FEB-2023 03:06, Premature ventricular complexes are no longer Present Premature supraventricular complexes are no longer Present Borderline criteria for Inferior infarct are now Present Confirmed by Redd Sanchez ([id number]) on 03/02/2023 3:27:00 PM Referred By: REFERRED SELF Confirmed By:Zack Sanchez
--- NOTE | 2023-03-02 15:44 | Electrocardiogram Report ---
Test Reason : Blood Pressure : / mmHG Vent. Rate : 127 BPM Atrial Rate : 127 BPM P-R Int : 156 ms QRS Dur : 086 ms QT Int : 306 ms P-R-T Axes : 067 044 047 degrees QTc Int : 444 ms Sinus tachycardia Otherwise normal ECG When compared with ECG of 28-FEB-2023 03:06, Premature ventricular complexes are no longer Present Premature supraventricular complexes are no longer Present Questionable change in QRS duration Criteria for Septal infarct are no longer Present Confirmed by Redd Sanchez ([id number]) on 03/02/2023 3:42:34 PM Referred By: REFERRED SELF Confirmed By:Zack Sanchez
[2023-03-02] MEDS ORDERED: Heparin IV Adult Wt-Based Standard *NO* Bolus Protocol IV STA (17:02)
--- NOTE | 2023-03-02 17:08 | Hospitalist Progress Note ---
Date of Service March 02, 2023 Assessment & Plan (1) Acute pain of right hip: Plan Patient is an 87 y- female who presents status post fall and right hip fracture. Right femur fracture Secondary to fall -Hip X ray:Acute mildly comminuted, impacted and displaced subcapital right femo ral fracture. -S/P right hip bipolar hemiarthroplasty by Dr. Hancock on 03/01/2023 Pain control Fall precautions Appreciate orthopedics input PT OT as able Continue wound care Needs follow-up with orthopedics upon discharge Hemoglobin fairly stable Acute pulmonary embolism Acute respiratory failure with hypoxia Sinus Tachycardia likely secondary to above Mild pulmonary edema --CTA:Lingular segmental/subsegmental pulmonary emboli. No evidence for right- sided heart strain. Mild cardiomegaly with interlobular septal thickening and trace bilateral pleural effusions. This favors developing pulmonary edema. Small peripheral irregular densities within the lungs posteriorly which favor dependent change/atelectasis. Moderate emphysema. --ECHO pending --Check Venous Doppler --Started on IV heparin --Received Lasix Continue supplemental oxygen as needed Continue home p.o. Lasix COPD Chronic respiratory failure with hypoxia--on 2 L at baseline CXR:Emphysema without acute process. Continue supplemental oxygen to keep saturations 88 to 92% Continue home inhalers HTN BP mildly elevated Continue amlodipine, enalapril Also on Lasix Lower extremity edema Recently started on Lasix ECHO done in June 2022 showed EF of 65% to 70%. Monitor volume status Rule out DVT as above H/O Pulmonary hypertension Continue home medications Hyperlipidemia: Continue statin DVT Px: IV heparin CODE STATUS: DNR/DNI Admission and Anticipated Discharge Date Admission Date: February 28, 2023 Subjective Patient is seen and examined at bedside Leg pain at surgical site is controlled Intermittently states having spasms Tachycardic on monitor Discussed with patient's family at bedside Denies any chest pain, dyspnea, dizziness, nausea, vomiting, abdominal pain No other complaints Review of Systems Review of Systems: All systems reviewed & are unremarkable except as noted in Subjective Physical Exam Physical Exam: Physical Exam: Vitals signs as noted above General Appearance: Chronic ill-appearing, elderly, mild distress Head: normocephalic, Atraumatic Eyes: normal inspection, EOMI Neck: supple, Trachea midline Respiratory/Chest: Normal breath sounds, CTA, No accessory muscle use Cardiovascular: S1, S2, Tachycardia, No murmur Abdomen/GI:Soft, Non tender, Bowel sounds present Extremities/Musculoskeletal:normal inspection, + pedal edema, R hip surgical site in dressing Neurologic/Psych:AAOX2, grossly no focal neurological deficits Skin: normal color, warm Results & Data Results & Data Vital Signs (Past 12 Hours) Vital Signs Temp Pulse Pulse Pulse Resp BP Pulse Ox 03/02/23 16:00 116 H 03/02/23 15:08 36.9 C 125 H 20 146/76 H 91 03/02/23 08:00 03/02/23 11:17 37.2 C 127 H 22 141/78 H 94 03/02/23 10:49 91 03/02/23 09:30 90 03/02/23 07:24 119 H 26 H 95 03/02/23 06:53 37.5 C 122 H 22 170/89 H 96 03/02/23 06:00 03/02/23 06:00 101 H 26 H 90 Pulse Ox O2 Del Method O2 Del Method O2 Flow Rate O2 Flow Rate 03/02/23 16:00 03/02/23 15:08 Nasal Cannula 6.0 03/02/23 08:00 Oxymask, High Flow Nasal Cannula 03/02/23 11:17 High Flow Nasal Cannula 6 03/02/23 10:49 High Flow Nasal Cannula 6 03/02/23 09:30 Nasal Cannula 6 03/02/23 07:24 Oxymask 6 03/02/23 06:53 Oxymask 7 03/02/23 06:00 93 Oxymask 6 03/02/23 06:00 Oxymask 6 Laboratory Results Short CBC 03/02/23 Range/Units 05:18 WBC 10.06 (4.8-10.8) K/ul Hgb 10.2 L (12.0-16.0) g/dl Hct 30.6 L (37.0-47.0) % Plt Count 257 (130-400) K/uL BMP 03/02/23 05:18 Sodium 134 L Potassium 3.8 Chloride 96 L Carbon Dioxide 31 BUN 23 Creatinine 0.63 Glucose 112 H Calcium 9.0
[2023-03-02] MEDS: HEPARIN SODIUM/DEXTROSE 25,000 UNITS/500 ML BAG IV SCH (17:49)
--- NOTE | 2023-03-02 17:59 | Ultrasound Report ---
BILATERAL LOWER EXTREMITY VENOUS DOPPLER HISTORY: Screening study for possible DVT. PE, rule out DVT COMPARISON STUDY: None. FINDINGS: There is normal compressibility, flow, and augmentation within the bilateral lower extremit y deep venous systems. IMPRESSION: No DVT within the right or left lower extremity. ACT 112: Negative or not required by law. Electronically signed by: Ag Lopez M.D. 03/02/2023 5:57 PM
--- NOTE | 2023-03-02 18:43 | Orthopedic Progress Note ---
Date of Service March 02, 2023 Assessment & Plan (1) S/P hip hemiarthroplasty: (2) Displaced fracture of right femoral neck: Plan Postop day 1 after right press-fit bipolar hemiarthroplasty for femoral neck fracture with nickel allergy. Making progress as expected orthopedically, but she has a setback now with increased oxygen demands likely due to emboli. -Anticoagulation per primary team. No restrictions with regard to wound. -Preferred dressing remain until postop day 3. -PT/OT: Weightbearing as tolerated, range of motion as tolerated, posterior hip precautions -Pain control per primary team. Dispo: Per primary team. Should follow-up in orthopedics in 2-3 weeks for wound check and staple removal. This can be coordinated with the nursing care at home as well. Should have repeat x-ray in around 6 weeks. We will continue to monitor while inpatient. Subjective Seen over lunch today. Chart reviewedPE findings noted. She said she has pain but cannot localize it. Thinks she is doing okay. Says she has an appetite and has eaten. She does not describe any other issues. Review of Systems All systems reviewed & are unremarkable except as noted in HPI & below. Physical Exam RLE: Dressing clean and dry and intact. Positive DF/PF/EHL. Hip abduction pillow in place. Constitutional WD/WN, vitals as above no acute distress and not intoxicated appearing Respiratory normal respiratory effort; no labored breathing Cardiovascular Extremities: normal capillary refill Results & Data Results & Data Laboratory Results H & H 02/28/23 03/01/23 03/02/23 Range/Units 03:05 05:37 05:18 Hgb 11.8 L 10.8 L 10.2 L (12.0-16.0) g/dl Hct 34.2 L 31.7 L 30.6 L (37.0-47.0) % Coagulation 02/28/23 Range/Units 03:05 INR 1.0 (0.9-1.1) Diagnostic Findings CT chest: Positive for emboli. PG Care Time/CCT Total # of Minutes Spent Total Time Spent with Patient: Total time spent is greater than 50% in coordination of care (as documented) at patient's floor/unit and/or counseling patient: Coding Level of Care Code 02159 Post Operative Follow-Up Diagnoses S/P hip hemiarthroplasty Z96.649 Displaced fracture of right femoral neck S72.001A
[2023-03-02] MEDS: SIMVASTATIN 20 MG TAB PO SCH (20:07)
[2023-03-03] MEDS: oxyCODONE HCL IR 5 MG TAB (IMMEDIATE RELEASE) PO PRN ×4 (00:43→19:40)
[2023-03-03 01:18] LABS: Partial Thromboplastin Ratio 1.2; Partial Thromboplastin Time 34.9 Seconds (21.0-31.0)
[2023-03-03] MEDS ORDERED: HEPARIN SOD (PORCINE) 1000 UNIT/ML IV ONE (01:55)
--- NOTE | 2023-03-03 05:57 | Orthopedic Progress Note ---
Date of Service March 03, 2023 Assessment & Plan (1) Displaced fracture of right femoral neck: Overall her hip seems to be doing okay. The dressing looks good. She is currently on anticoagulants per the hospitalist team. She is on oxygen at 8 L right now. She can be weightbearing as tolerated on the right leg. She is orthopedically stable for discharge when medically ready. She will follow-up with orthopedics in 2 weeks. Valencia Howell was seen and examined at bedside this morning. She was not completely awake and alert. She seemed very sedated. She did not do physical therapy yesterday due to some of her breathing issues. She had no acute events overnight.. Review of Systems All systems reviewed & are unremarkable except as noted in HPI & below. Physical Exam On physical examination of the right hip, the dressing is clean and dry. His leg is out full extension.. Results & Data Results & Data Laboratory Results . Diagnostic Findings . PG Care Time/CCT Total # of Minutes Spent Total Time Spent with Patient: Total time spent is greater than 50% in coordination of care (as documented) at patient's floor/unit and/or counseling patient: Coding Level of Care Code 76547 Post Operative Follow-Up Diagnoses Displaced fracture of right femoral neck S72.001A
[2023-03-03] MEDS: BUDESONIDE 0.25 MG/2 ML VIAL (PULMICORT) INH SCH ×2 (06:58→19:48)
[2023-03-03] MEDS: FORMOTEROL 20 MCG/2 ML VIAL INH SCH ×2 (06:58→19:48)
[2023-03-03] MEDS: MULTIVITAMIN TAB PO SCH (08:08)
[2023-03-03] MEDS: ASPIRIN 81 MG ECTAB PO SCH ×2 (08:08→20:42)
[2023-03-03] MEDS: CHOLECALCIFEROL 1,000 UNITS 25 MCG TAB PO SCH (08:08)
[2023-03-03] MEDS: amLODIPine BESYLATE 5 MG TAB PO SCH (08:09)
[2023-03-03] MEDS: FLUTICASONE PROPIONATE NA SPR 16 GM BTL SCH ×2 (08:09→20:42)
[2023-03-03] MEDS: IPRATROPIUM BROMIDE NASAL SPRAY 0.06% 15ML SCH ×3 (08:10→20:42)
[2023-03-03] MEDS: ENALAPRIL MALEATE 10 MG TAB PO SCH (08:10)
[2023-03-03] MEDS: FUROSEMIDE 40 MG TAB PO SCH (08:11)
[2023-03-03] MEDS: DOCUSATE SODIUM/SENNA 50/8.6MG TAB PO SCH (08:17)
[2023-03-03 08:27] LABS: Hematocrit (blood only) 30.6 % (37.0-47.0); Hemoglobin 10.6 g/dl (12.0-16.0); Mean Corpuscular Hemoglobin 30.2 pg (25.0-34.0); Mean Corpuscular Hgb Conc 34.6 g/dL (32.0-36.0); Mean Corpuscular Volume 87.2 fL (80.0-100.0); Mean Platelet Volume 10.1 fL (9.4-12.4); Platelet Count 258 K/uL (130-400); RDW Coefficient of Variation 13.2 % (11.5-14.5); RDW Standard Deviation 42.1 fL (36.4-46.3); Red Blood Count 3.51 M/uL (4.20-5.40)
[2023-03-03 08:39] LABS: BUN Creatinine Ratio 43.7 (10-20); Calcium 9.1 mg/dl (8.6-10.3); Creatinine Clr Calc Pharmacy 48.1 ml/min; Est GFR (African American) 88.8 ml/min; Est GFR (Non-African American) 76.6 ml/min
[2023-03-03 09:09] LABS: Partial Thromboplastin Time 56.1 Seconds (21.0-31.0)
[2023-03-03] MEDS: YUPELRI 175 MCG/3 ML EXT SCH (10:01)
[2023-03-03] MEDS: ACETAMINOPHEN 1,000 MG/100 ML VIAL IV PRN (12:06)
[2023-03-03] MEDS: HEPARIN SODIUM/DEXTROSE 25,000 UNITS/500 ML BAG IV SCH (15:12)
--- NOTE | 2023-03-03 16:58 | Hospitalist Progress Note ---
Date of Service March 03, 2023 Assessment & Plan (1) Acute pain of right hip: Plan Patient is an 87 y- female who presents status post fall and right hip fracture. Right femur fracture Secondary to fall -Hip X ray:Acute mildly comminuted, impacted and displaced subcapital right femo ral fracture. -S/P right hip bipolar hemiarthroplasty by Dr. Hancock on 03/01/2023 Pain control Fall precautions Appreciate orthopedics input PT OT as able Continue wound care Needs follow-up with orthopedics upon discharge Hemoglobin stable Continue current management Acute pulmonary embolism Acute respiratory failure with hypoxia Sinus Tachycardia likely secondary to above Mild pulmonary edema --CTA:Lingular segmental/subsegmental pulmonary emboli. No evidence for right- sided heart strain. Mild cardiomegaly with interlobular septal thickening and trace bilateral pleural effusions. This favors developing pulmonary edema. Small peripheral irregular densities within the lungs posteriorly which favor dependent change/atelectasis. Moderate emphysema. --ECHO pending -Venous Doppler:No DVT within the right or left lower extremity. -- Continue IV heparin: Transition to Eliquis as able --Received Lasix Continue supplemental oxygen as needed Continue home p.o. Lasix COPD Chronic respiratory failure with hypoxia--on 2 L at baseline CXR:Emphysema without acute process. Continue supplemental oxygen to keep saturations 88 to 92% Continue home inhalers Wean supplemental oxygen as able HTN Continue amlodipine, enalapril Also on Lasix Lower extremity edema Recently started on Lasix ECHO done in June 2022 showed EF of 65% to 70%. Monitor volume status DVT ruled out H/O Pulmonary hypertension Continue home medications Hyperlipidemia: Continue statin DVT Px: IV heparin CODE STATUS: DNR/DNI Admission and Anticipated Discharge Date Admission Date: February 28, 2023 Subjective Patient is seen and examined at bedside Tachycardia, respiratory status improving Reports Leg pain at surgical site Denies any chest pain, dyspnea, dizziness, nausea, vomiting, abdominal pain No other complaints Review of Systems Review of Systems: All systems reviewed & are unremarkable except as noted in Subjective Physical Exam Physical Exam: Physical Exam: Vitals signs as noted above General Appearance: Chronic ill-appearing, elderly, mild distress Head: normocephalic, Atraumatic Eyes: normal inspection, EOMI Neck: supple, Trachea midline Respiratory/Chest: Normal breath sounds, CTA, No accessory muscle use Cardiovascular: S1, S2, Tachycardia, No murmur Abdomen/GI:Soft, Non tender, Bowel sounds present Extremities/Musculoskeletal:normal inspection, + pedal edema, R hip surgical site in dressing Neurologic/Psych:AAOX2, grossly no focal neurological deficits Skin: normal color, warm Results & Data Results & Data Vital Signs (Past 12 Hours) Vital Signs Temp Pulse Pulse Resp BP Pulse Ox Pulse Ox 03/03/23 15:21 36.4 C L 108 H 19 131/79 91 03/03/23 14:02 91 03/03/23 12:31 95 03/03/23 11:53 36.8 C 100 H 20 134/74 98 03/03/23 09:23 98 03/03/23 07:52 83 03/03/23 07:52 03/03/23 07:30 37.0 C 120 H 21 157/75 H 90 03/03/23 06:58 109 H 18 92 O2 Del Method O2 Flow Rate O2 Flow Rate 03/03/23 15:21 High Flow Nasal Cannula 5 03/03/23 14:02 6 03/03/23 12:31 03/03/23 11:53 High Flow Nasal Cannula 8 03/03/23 09:23 Nasal Cannula 6 03/03/23 07:52 03/03/23 07:52 High Flow Nasal Cannula 8 03/03/23 07:30 High Flow Nasal Cannula 8 03/03/23 06:58 Nasal Cannula 5 Laboratory Results Short CBC 03/03/23 Range/Units 08:00 WBC 11.30 H (4.8-10.8) K/ul Hgb 10.6 L (12.0-16.0) g/dl Hct 30.6 L (37.0-47.0) % Plt Count 258 (130-400) K/uL BMP 03/03/23 08:00 Sodium 133 L Potassium 4.0 Chloride 89 L Carbon Dioxide 37 H BUN 31 H Creatinine 0.71 Glucose 160 H Calcium 9.1
[2023-03-03] MEDS: SIMVASTATIN 20 MG TAB PO SCH (20:42)
[2023-03-04 07:19] LABS: Hematocrit (blood only) 29.9 % (37.0-47.0); Hemoglobin 10.2 g/dl (12.0-16.0); Mean Corpuscular Hemoglobin 30.3 pg (25.0-34.0); Mean Corpuscular Hgb Conc 34.1 g/dL (32.0-36.0); Mean Corpuscular Volume 88.7 fL (80.0-100.0); Mean Platelet Volume 10.5 fL (9.4-12.4); Platelet Count 287 K/uL (130-400); RDW Standard Deviation 42.8 fL (36.4-46.3); Red Blood Count 3.37 M/uL (4.20-5.40); White Blood Count 10.04 K/ul (4.8-10.8)
[2023-03-04] MEDS: BUDESONIDE 0.25 MG/2 ML VIAL (PULMICORT) INH SCH ×2 (07:30→19:26)
[2023-03-04 07:34] LABS: BUN Creatinine Ratio 39.1 (10-20); Calcium 9.1 mg/dl (8.6-10.3); Creatinine Clr Calc Pharmacy 49.5 ml/min; Est GFR (African American) 90.7 ml/min; Est GFR (Non-African American) 78.3 ml/min; Potassium 3.7 mmol/L (3.5-5.1)
[2023-03-04] MEDS: FORMOTEROL 20 MCG/2 ML VIAL INH SCH ×2 (07:53→19:26)
[2023-03-04 07:59] LABS: Partial Thromboplastin Ratio 1.6
[2023-03-04] MEDS: CHOLECALCIFEROL 1,000 UNITS 25 MCG TAB PO SCH (08:05)
[2023-03-04] MEDS: ASPIRIN 81 MG ECTAB PO SCH ×2 (08:05→20:45)
[2023-03-04] MEDS: FUROSEMIDE 40 MG TAB PO SCH (08:06)
[2023-03-04] MEDS: amLODIPine BESYLATE 5 MG TAB PO SCH (08:06)
[2023-03-04] MEDS: MULTIVITAMIN TAB PO SCH (08:06)
[2023-03-04] MEDS: IPRATROPIUM BROMIDE NASAL SPRAY 0.06% 15ML SCH ×3 (08:07→20:46)
[2023-03-04] MEDS: YUPELRI 175 MCG/3 ML EXT SCH (08:07)
[2023-03-04] MEDS: FLUTICASONE PROPIONATE NA SPR 16 GM BTL SCH ×2 (08:07→20:46)
[2023-03-04] MEDS: ENALAPRIL MALEATE 10 MG TAB PO SCH (08:07)
[2023-03-04] MEDS: DOCUSATE SODIUM/SENNA 50/8.6MG TAB PO SCH (08:14)
[2023-03-04 08:19] LABS: Partial Thromboplastin Time 46.2 Seconds (21.0-31.0)
[2023-03-04] MEDS: oxyCODONE HCL IR 5 MG TAB (IMMEDIATE RELEASE) PO PRN ×3 (08:20→20:46)
[2023-03-04] MEDS: HEPARIN SODIUM/DEXTROSE 25,000 UNITS/500 ML BAG IV SCH (13:47)
[2023-03-04] MEDS ORDERED: POTASSIUM CHLORIDE CRTAB 20 MEQ TABCR PO ONE (16:25)
--- NOTE | 2023-03-04 16:27 | Hospitalist Progress Note ---
Date of Service March 04, 2023 Assessment & Plan (1) Acute pain of right hip: Plan Patient is an 87 y- female who presents status post fall and right hip fracture. Right femur fracture Secondary to fall -Hip X ray:Acute mildly comminuted, impacted and displaced subcapital right femo ral fracture. -S/P right hip bipolar hemiarthroplasty by Dr. Hancock on 03/01/2023 Pain control Fall precautions Appreciate orthopedics input PT OT as able Continue wound care Needs follow-up with orthopedics upon discharge Hemoglobin stable Rehab as able Acute pulmonary embolism Acute respiratory failure with hypoxia Sinus Tachycardia likely secondary to above Mild pulmonary edema --CTA:Lingular segmental/subsegmental pulmonary emboli. No evidence for right- sided heart strain. Mild cardiomegaly with interlobular septal thickening and trace bilateral pleural effusions. This favors developing pulmonary edema. Small peripheral irregular densities within the lungs posteriorly which favor dependent change/atelectasis. Moderate emphysema. --ECHO pending -Venous Doppler:No DVT within the right or left lower extremity. -- Continue IV heparin: Transition to Eliquis as able --Received Lasix Continue supplemental oxygen as needed Hold p.o. Lasix today, looks clinically dehydrated Constipation Continue bowel regimen COPD Chronic respiratory failure with hypoxia--on 2 L at baseline CXR:Emphysema without acute process. Continue supplemental oxygen to keep saturations 88 to 92% Continue home inhalers Wean supplemental oxygen as able HTN Continue amlodipine, enalapril Also on Lasix Lower extremity edema Recently started on Lasix ECHO done in June 2022 showed EF of 65% to 70%. Monitor volume status DVT ruled out Resume Lasix as able H/O Pulmonary hypertension Continue home medications Hyperlipidemia: Continue statin DVT Px: IV heparin CODE STATUS: DNR/DNI Admission and Anticipated Discharge Date Admission Date: February 28, 2023 Subjective Patient is seen and examined at bedside Feels a lot better today Denies any significant hip pain at surgical site Discussed with patient's family at bedside PACs on telemetry Reports constipation Denies any chest pain, dyspnea, dizziness, nausea, vomiting, abdominal pain On IV heparin Denies any bleeding issues Review of Systems Review of Systems: All systems reviewed & are unremarkable except as noted in Subjective Physical Exam Physical Exam: Physical Exam: Vitals signs as noted above General Appearance: Chronic ill-appearing, elderly, mild distress Head: normocephalic, Atraumatic Eyes: normal inspection, EOMI Neck: supple, Trachea midline Respiratory/Chest: Normal breath sounds, CTA, No accessory muscle use Cardiovascular: S1, S2, Tachycardia, No murmur Abdomen/GI:Soft, Non tender, Bowel sounds present Extremities/Musculoskeletal:normal inspection, + pedal edema, R hip surgical site in dressing Neurologic/Psych:AAOX2, grossly no focal neurological deficits Skin: normal color, warm Results & Data Results & Data Vital Signs (Past 12 Hours) Vital Signs Temp Pulse Pulse Resp BP Pulse Ox O2 Del Method 03/04/23 15:57 36.4 C L 107 H 19 129/70 91 Nasal Cannula 03/04/23 11:44 37.0 C 112 H 20 135/76 96 Nasal Cannula 03/04/23 09:24 Nasal Cannula 03/04/23 09:28 96 Nasal Cannula 03/04/23 07:46 37.1 C 114 H 18 155/78 H 96 Nasal Cannula 03/04/23 07:32 109 H 14 96 Nasal Cannula 03/04/23 07:26 101 H O2 Flow Rate 03/04/23 15:57 2 03/04/23 11:44 2 03/04/23 09:24 03/04/23 09:28 3 03/04/23 07:46 5 03/04/23 07:32 6 03/04/23 07:26 Laboratory Results Short CBC 03/04/23 Range/Units 06:52 WBC 10.04 (4.8-10.8) K/ul Hgb 10.2 L (12.0-16.0) g/dl Hct 29.9 L (37.0-47.0) % Plt Count 287 (130-400) K/uL BMP 03/04/23 06:52 Sodium 128 L Potassium 3.7 Chloride 85 L Carbon Dioxide 36 H BUN 27 H Creatinine 0.69 Glucose 117 H Calcium 9.1
[2023-03-04] MEDS: POLYETHYLENE (MIRALAX) 17 GM PACK PO PRN (16:40)
[2023-03-04] MEDS: SIMVASTATIN 20 MG TAB PO SCH (20:45)
[2023-03-04] MEDS: DOCUSATE SODIUM 100 MG CAP PO SCH (20:46)
[2023-03-05] MEDS: BUDESONIDE 0.25 MG/2 ML VIAL (PULMICORT) INH SCH ×2 (07:02→19:21)
[2023-03-05] MEDS: FORMOTEROL 20 MCG/2 ML VIAL INH SCH ×2 (07:03→19:20)
[2023-03-05 07:45] LABS: Hematocrit (blood only) 28.7 % (37.0-47.0); Hemoglobin 9.8 g/dl (12.0-16.0); Mean Corpuscular Hemoglobin 30.4 pg (25.0-34.0); Mean Corpuscular Hgb Conc 34.1 g/dL (32.0-36.0); Mean Corpuscular Volume 89.1 fL (80.0-100.0); Mean Platelet Volume 10.6 fL (9.4-12.4); Platelet Count 300 K/uL (130-400); RDW Standard Deviation 42.3 fL (36.4-46.3); Red Blood Count 3.22 M/uL (4.20-5.40); White Blood Count 8.45 K/ul (4.8-10.8)
[2023-03-05 08:20] LABS: Partial Thromboplastin Ratio 1.7
[2023-03-05 08:24] LABS: Magnesium 1.8 mg/dl (1.7-2.4); Potassium 3.8 mmol/L (3.5-5.1)
[2023-03-05 08:29] LABS: BUN Creatinine Ratio 29.4 (10-20); Creatinine Clr Calc Pharmacy 52.4 ml/min; Est GFR (African American) 91.2 ml/min; Est GFR (Non-African American) 78.6 ml/min
[2023-03-05 08:47] LABS: Partial Thromboplastin Time 48.1 Seconds (21.0-31.0)
[2023-03-05] MEDS: AZITHROMYCIN 250 MG TAB PO SCH (09:33)
[2023-03-05] MEDS: amLODIPine BESYLATE 5 MG TAB PO SCH (09:33)
[2023-03-05] MEDS: ASPIRIN 81 MG ECTAB PO SCH (09:33)
[2023-03-05] MEDS: CHOLECALCIFEROL 1,000 UNITS 25 MCG TAB PO SCH (09:33)
[2023-03-05] MEDS: FLUTICASONE PROPIONATE NA SPR 16 GM BTL SCH ×2 (09:34→20:28)
[2023-03-05] MEDS: ENALAPRIL MALEATE 10 MG TAB PO SCH (09:34)
[2023-03-05] MEDS: IPRATROPIUM BROMIDE NASAL SPRAY 0.06% 15ML SCH ×3 (09:34→20:28)
[2023-03-05] MEDS: MULTIVITAMIN TAB PO SCH (09:35)
[2023-03-05] MEDS: YUPELRI 175 MCG/3 ML EXT SCH (09:54)
[2023-03-05] MEDS: DOCUSATE SODIUM/SENNA 50/8.6MG TAB PO SCH (10:10)
[2023-03-05] MEDS: APIXABAN 5 MG TABLET PO SCH ×2 (10:10→20:28)
[2023-03-05] MEDS: oxyCODONE HCL IR 5 MG TAB (IMMEDIATE RELEASE) PO PRN (10:14)
--- NOTE | 2023-03-05 11:36 | Electrocardiogram Report ---
Test Reason : Blood Pressure : / mmHG Vent. Rate : 103 BPM Atrial Rate : 103 BPM P-R Int : 148 ms QRS Dur : 078 ms QT Int : 320 ms P-R-T Axes : 055 032 058 degrees QTc Int : 419 ms Poor data quality, interpretation may be adversely affected Sinus tachycardia with Premature atrial complexes Minimal voltage criteria for LVH, may be normal variant Borderline ECG When compared with ECG of 02-MAR-2023 11:07, Premature atrial complexes are now Present Confirmed by Anthony Tobar ([id number]) on 03/05/2023 11:36:22 AM Referred By: REFERRED SELF Confirmed By:Anthony Tobar
--- NOTE | 2023-03-05 15:13 | Hospitalist Progress Note ---
Date of Service March 05, 2023 Assessment & Plan (1) Acute pain of right hip: Plan Patient is an 87 y- female who presents status post fall and right hip fracture. Right femur fracture Secondary to fall -Hip X ray:Acute mildly comminuted, impacted and displaced subcapital right femo ral fracture. -S/P right hip bipolar hemiarthroplasty by Dr. Hancock on 03/01/2023 Pain control Fall precautions Appreciate orthopedics input PT OT as able Hemoglobin stable Waiting for rehab placement Needs follow-up with orthopedics in 2 weeks upon discharge Acute pulmonary embolism Acute respiratory failure with hypoxia Sinus Tachycardia likely secondary to above Mild pulmonary edema --CTA:Lingular segmental/subsegmental pulmonary emboli. No evidence for right- sided heart strain. Mild cardiomegaly with interlobular septal thickening and trace bilateral pleural effusions. This favors developing pulmonary edema. Small peripheral irregular densities within the lungs posteriorly which favor dependent change/atelectasis. Moderate emphysema. --ECHO pending -Venous Doppler:No DVT within the right or left lower extremity. -- Continue IV heparin: Transitioned to Eliquis --Received Lasix Continue supplemental oxygen as needed Continue to hold Lasix for now Constipation Continue bowel regimen COPD Chronic respiratory failure with hypoxia--on 2 L at baseline CXR:Emphysema without acute process. Continue supplemental oxygen to keep saturations 88 to 92% Continue home inhalers Wean supplemental oxygen as able HTN Continue amlodipine, enalapril Also on Lasix Lower extremity edema Recently started on Lasix ECHO done in June 2022 showed EF of 65% to 70%. Monitor volume status DVT ruled out No leg edema currently Resume Lasix as able H/O Pulmonary hypertension Continue home medications Hyperlipidemia: Continue statin DVT Px: Eliquis CODE STATUS: DNR/DNI Disposition SNF as able Admission and Anticipated Discharge Date Admission Date: February 28, 2023 Subjective Patient is seen and examined at bedside Doing well today No new complaints Waiting for rehab placement Saturating well on baseline supplemental oxygen Tachycardia much improved Denies any significant hip pain at surgical site Also denies any chest pain, dyspnea, dizziness, nausea, vomiting, abdominal pain Review of Systems Review of Systems: All systems reviewed & are unremarkable except as noted in Subjective Physical Exam Physical Exam: Physical Exam: Vitals signs as noted above General Appearance: Chronic ill-appearing, elderly, mild distress Head: normocephalic, Atraumatic Eyes: normal inspection, EOMI Neck: supple, Trachea midline Respiratory/Chest: Normal breath sounds, CTA, No accessory muscle use Cardiovascular: S1, S2, Tachycardia, No murmur Abdomen/GI:Soft, Non tender, Bowel sounds present Extremities/Musculoskeletal:normal inspection, + pedal edema, R hip surgical site in dressing Neurologic/Psych:AAOX3, grossly no focal neurological deficits Skin: normal color, warm Results & Data Results & Data Vital Signs (Past 12 Hours) Vital Signs Temp Pulse Pulse Resp BP BP Pulse Ox 03/05/23 07:30 87 03/05/23 11:57 36.6 C 93 H 20 143/65 H 94 03/05/23 11:32 03/05/23 07:31 36.5 C 99 H 18 152/70 H 92 03/05/23 07:04 92 H 18 94 03/05/23 04:28 135/71 03/05/23 04:09 96 H 18 182/72 H 93 O2 Del Method O2 Flow Rate 03/05/23 07:30 03/05/23 11:57 Nasal Cannula 3.5 03/05/23 11:32 Nasal Cannula 3 03/05/23 07:31 Nebulizer 03/05/23 07:04 Nasal Cannula 3 03/05/23 04:28 03/05/23 04:09 Nasal Cannula 3 Laboratory Results Short CBC 03/05/23 Range/Units 07:21 WBC 8.45 (4.8-10.8) K/ul Hgb 9.8 L (12.0-16.0) g/dl Hct 28.7 L (37.0-47.0) % Plt Count 300 (130-400) K/uL BMP 03/05/23 07:21 Sodium 132 L Potassium 3.8 Chloride 89 L Carbon Dioxide 39 H BUN 20 Creatinine 0.68 Glucose 106 H Calcium 9.0
[2023-03-05] MEDS: POLYETHYLENE (MIRALAX) 17 GM PACK PO PRN (18:25)
[2023-03-05] MEDS: ACETAMINOPHEN 1,000 MG/100 ML VIAL IV PRN (18:25)
[2023-03-05] MEDS: DOCUSATE SODIUM 100 MG CAP PO SCH (20:27)
[2023-03-05] MEDS: SIMVASTATIN 20 MG TAB PO SCH (20:28)
[2023-03-06] MEDS: FORMOTEROL 20 MCG/2 ML VIAL INH SCH ×2 (07:16→19:39)
[2023-03-06] MEDS: BUDESONIDE 0.25 MG/2 ML VIAL (PULMICORT) INH SCH ×2 (07:16→19:39)
[2023-03-06] MEDS: amLODIPine BESYLATE 5 MG TAB PO SCH (08:20)
[2023-03-06] MEDS: CHOLECALCIFEROL 1,000 UNITS 25 MCG TAB PO SCH (08:21)
[2023-03-06] MEDS: ASPIRIN 81 MG ECTAB PO SCH (08:21)
[2023-03-06] MEDS: APIXABAN 5 MG TABLET PO SCH ×2 (08:21→20:04)
[2023-03-06] MEDS: FLUTICASONE PROPIONATE NA SPR 16 GM BTL SCH ×2 (08:22→20:04)
[2023-03-06] MEDS: ENALAPRIL MALEATE 10 MG TAB PO SCH (08:22)
[2023-03-06] MEDS: IPRATROPIUM BROMIDE NASAL SPRAY 0.06% 15ML SCH ×3 (08:23→20:05)
[2023-03-06] MEDS: MULTIVITAMIN TAB PO SCH (08:23)
[2023-03-06] MEDS: POLYETHYLENE (MIRALAX) 17 GM PACK PO PRN (08:49)
[2023-03-06] MEDS: DOCUSATE SODIUM/SENNA 50/8.6MG TAB PO SCH (08:49)
[2023-03-06] MEDS: ACETAMINOPHEN 325 MG TAB PO PRN (08:53)
[2023-03-06 08:55] LABS: Hematocrit (blood only) 30.7 % (37.0-47.0); Hemoglobin 10.6 g/dl (12.0-16.0)
[2023-03-06] MEDS ORDERED: bisacodyL 10 MG SUPP PR PRN (09:53)
[2023-03-06] MEDS: YUPELRI 175 MCG/3 ML EXT SCH (10:20)
--- NOTE | 2023-03-06 11:07 | XRay Report ---
KUB HISTORY: constipation COMPARISON: Abdomen and pelvis CT 11/24/2015. FINDINGS: No dilated loops of small bowel to suggest an obstruction. The lung bases appear clear. Robin cification within the aorta. Bilateral hip arthroplasties are noted. Moderate well-formed stool seen throughout the colon and rectum. This is most pronounced within the proximal colon. No renal calculi . No ureteral calculi. No pneumoperitoneum or pneumatosis. IMPRESSION: 1. Nonobstructive bowel gas pattern. 2. Moderate fecal retention. ACT 112: Negative or not required by law. Electronically signed by: Arjun Shultz M.D. 03/06/2023 11:06 AM
[2023-03-06] MEDS ORDERED: bisacodyL 5 MG TABEC PO ONE (11:44)
--- NOTE | 2023-03-06 17:30 | Hospitalist Progress Note ---
Date of Service March 06, 2023 Assessment & Plan (1) Acute pain of right hip: Plan Patient is an 87 y- female who presents status post fall and right hip fracture. Right femur fracture Secondary to fall -Hip X ray:Acute mildly comminuted, impacted and displaced subcapital right femo ral fracture. -S/P right hip bipolar hemiarthroplasty by Dr. Hancock on 03/01/2023 Pain control Fall precautions Appreciate orthopedics input PT OT as able Hemoglobin stable Needs follow-up with orthopedics in 2 weeks upon discharge Waiting for rehab placement Constipation --KUB Nonobstructive bowel gas pattern. Moderate fecal retention. Started on bowel regimen Acute pulmonary embolism Acute respiratory failure with hypoxia Sinus Tachycardia likely secondary to above Mild pulmonary edema --CTA:Lingular segmental/subsegmental pulmonary emboli. No evidence for right- sided heart strain. Mild cardiomegaly with interlobular septal thickening and trace bilateral pleural effusions. This favors developing pulmonary edema. Small peripheral irregular densities within the lungs posteriorly which favor dependent change/atelectasis. Moderate emphysema. --ECHO pending -Venous Doppler:No DVT within the right or left lower extremity. -- Continue IV heparin: Transitioned to Eliquis --Received Lasix Continue supplemental oxygen as needed Continue to hold Lasix for now--Resume as able COPD Chronic respiratory failure with hypoxia--on 2 L at baseline CXR:Emphysema without acute process. Continue supplemental oxygen to keep saturations 88 to 92% Continue home inhalers HTN Continue amlodipine, enalapril Also on Lasix Lower extremity edema Recently started on Lasix ECHO done in June 2022 showed EF of 65% to 70%. Monitor volume status DVT ruled out No leg edema currently Resume Lasix as able H/O Pulmonary hypertension Continue home medications Hyperlipidemia: Continue statin DVT Px: Eliquis CODE STATUS: DNR/DNI Disposition SNF when accepted Admission and Anticipated Discharge Date Admission Date: February 28, 2023 Subjective Patient is seen and examined at bedside Reports constipation Saturating well on baseline supplemental oxygen Denies any significant hip pain at surgical site Also denies any chest pain, dyspnea, dizziness, nausea, vomiting, abdominal pain Waiting for rehab placement Review of Systems Review of Systems: All systems reviewed & are unremarkable except as noted in Subjective Physical Exam Physical Exam: Physical Exam: Vitals signs as noted above General Appearance: Chronic ill-appearing, elderly, mild distress Head: normocephalic, Atraumatic Eyes: normal inspection, EOMI Neck: supple, Trachea midline Respiratory/Chest: Normal breath sounds, CTA, No accessory muscle use Cardiovascular: S1, S2, Tachycardia, No murmur Abdomen/GI:Soft, Non tender, Bowel sounds present Extremities/Musculoskeletal:normal inspection, + pedal edema, R hip surgical site in dressing Neurologic/Psych:AAOX3, grossly no focal neurological deficits Skin: normal color, warm Results & Data Results & Data Vital Signs (Past 12 Hours) Vital Signs Temp Pulse Resp BP BP Pulse Ox Pulse Ox 03/06/23 15:38 03/06/23 15:38 36.4 C L 94 H 18 151/75 H 93 03/06/23 13:37 03/06/23 12:53 36.8 C 106 H 20 128/59 L 90 03/06/23 07:48 36.9 C 64 20 129/84 97 03/06/23 07:16 90 16 97 03/06/23 06:00 95 O2 Del Method O2 Del Method O2 Flow Rate O2 Flow Rate 03/06/23 15:38 Nasal Cannula 3 03/06/23 15:38 Nasal Cannula 3 03/06/23 13:37 Nasal Cannula 2 03/06/23 12:53 Nasal Cannula 2.5 03/06/23 07:48 Nasal Cannula 2.5 03/06/23 07:16 Nasal Cannula 3 03/06/23 06:00 Nasal Cannula 2.5 Laboratory Results Short CBC 03/06/23 Range/Units 08:01 Hgb 10.6 L (12.0-16.0) g/dl Hct 30.7 L (37.0-47.0) %
[2023-03-06] MEDS: DOCUSATE SODIUM 100 MG CAP PO SCH (20:05)
[2023-03-06] MEDS: SIMVASTATIN 20 MG TAB PO SCH (20:05)
[2023-03-07] MEDS: ACETAMINOPHEN 325 MG TAB PO PRN ×2 (01:35→05:35)
[2023-03-07 07:06] LABS: Hematocrit (blood only) 28.4 % (37.0-47.0); Hemoglobin 9.6 g/dl (12.0-16.0)
[2023-03-07] MEDS: FORMOTEROL 20 MCG/2 ML VIAL INH SCH ×2 (07:13→19:18)
[2023-03-07] MEDS: BUDESONIDE 0.25 MG/2 ML VIAL (PULMICORT) INH SCH ×2 (07:13→19:18)
[2023-03-07 07:19] LABS: BUN Creatinine Ratio 25.7 (10-20); Calcium 9.2 mg/dl (8.6-10.3); Creatinine Clr Calc Pharmacy 48.5 ml/min; Est GFR (African American) 90.3 ml/min; Est GFR (Non-African American) 77.9 ml/min; Potassium 4.1 mmol/L (3.5-5.1)
[2023-03-07] MEDS: ASPIRIN 81 MG ECTAB PO SCH (09:18)
[2023-03-07] MEDS: APIXABAN 5 MG TABLET PO SCH ×2 (09:18→20:19)
[2023-03-07] MEDS: amLODIPine BESYLATE 5 MG TAB PO SCH (09:18)
[2023-03-07] MEDS: MULTIVITAMIN TAB PO SCH (09:19)
[2023-03-07] MEDS: IPRATROPIUM BROMIDE NASAL SPRAY 0.06% 15ML SCH ×3 (09:19→20:18)
[2023-03-07] MEDS: CHOLECALCIFEROL 1,000 UNITS 25 MCG TAB PO SCH (09:19)
[2023-03-07] MEDS: AZITHROMYCIN 250 MG TAB PO SCH (09:19)
[2023-03-07] MEDS: ENALAPRIL MALEATE 10 MG TAB PO SCH (09:19)
[2023-03-07] MEDS: FLUTICASONE PROPIONATE NA SPR 16 GM BTL SCH ×2 (09:20→20:18)
[2023-03-07] MEDS: YUPELRI 175 MCG/3 ML EXT SCH (09:21)
[2023-03-07] MEDS: DOCUSATE SODIUM/SENNA 50/8.6MG TAB PO SCH (11:49)
--- NOTE | 2023-03-07 16:48 | Orthopedic Progress Note ---
Date of Service March 07, 2023 Assessment & Plan (1) Displaced fracture of right femoral neck: (2) S/P hip hemiarthroplasty: Plan Making good progress on postoperative day 6 after right bipolar hemiarthroplasty for displaced femoral neck fracture -Continue plan of care -Discharge instructions were placed last week. -Should have pa removed at 2-3 weeks after surgery. This can be done in our clinic versus at a nursing facility. Nursing facility should contact our office -Tomas text me with any questions regarding her hip Subjective Patient was happy to report that her right hip feels fine. She has been ambulating with PT. She also reports she is feeling better with regards to her breathing. She states that she is getting ready to go to a nursing facility. Review of Systems All systems reviewed & are unremarkable except as noted in HPI & below. Physical Exam RLE: Hip is well dressed. She is neurovascular intact. Results & Data Results & Data Laboratory Results H & H 02/28/23 03/01/23 03/02/23 Range/Units 03:05 05:37 05:18 Hgb 11.8 L 10.8 L 10.2 L (12.0-16.0) g/dl Hct 34.2 L 31.7 L 30.6 L (37.0-47.0) % 03/03/23 03/04/23 03/05/23 Range/Units 08:00 06:52 07:21 Hgb 10.6 L 10.2 L 9.8 L (12.0-16.0) g/dl Hct 30.6 L 29.9 L 28.7 L (37.0-47.0) % 03/06/23 03/07/23 Range/Units 08:01 05:53 Hgb 10.6 L 9.6 L (12.0-16.0) g/dl Hct 30.7 L 28.4 L (37.0-47.0) % Coagulation 02/28/23 Range/Units 03:05 INR 1.0 (0.9-1.1) Diagnostic Findings . PG Care Time/CCT Total # of Minutes Spent Total Time Spent with Patient: Total time spent is greater than 50% in coordination of care (as documented) at patient's floor/unit and/or counseling patient: Coding Level of Care Code 65954 Post Operative Follow-Up Diagnoses Displaced fracture of right femoral neck S72.001A S/P hip hemiarthroplasty Z96.649
--- NOTE | 2023-03-07 16:53 | Hospitalist Progress Note ---
Date of Service March 07, 2023 Assessment & Plan (1) Displaced fracture of right femoral neck: Plan: Patient is an 87 y- female who presents status post fall and right hip fracture. Right femur fracture Secondary to fall -Hip X ray:Acute mildly comminuted, impacted and displaced subcapital right femoral fracture. -S/P right hip bipolar hemiarthroplasty by Dr. Hancock on 03/01/2023 Pain control Fall precautions Appreciate orthopedics input PT OT as able Hemoglobin stable Needs follow-up with orthopedics in 2 weeks upon discharge Waiting for rehab placement Constipation --KUB Nonobstructive bowel gas pattern. Moderate fecal retention. Had BM yesterday Continue bowel regimen Urinary retention Bladder scan as needed Started on Flomax We will consider Briscoe catheter placement if needed Acute pulmonary embolism Acute respiratory failure with hypoxia Sinus Tachycardia likely secondary to above Mild pulmonary edema --CTA:Lingular segmental/subsegmental pulmonary emboli. No evidence for right- sided heart strain. Mild cardiomegaly with interlobular septal thickening and trace bilateral pleural effusions. This favors developing pulmonary edema. Small peripheral irregular densities within the lungs posteriorly which favor dependent change/atelectasis. Moderate emphysema. --ECHO pending -Venous Doppler:No DVT within the right or left lower extremity. -- Continue IV heparin: Transitioned to Eliquis --Received Lasix Continue supplemental oxygen as needed Continue to hold Lasix for now--Resume as able COPD Chronic respiratory failure with hypoxia--on 2 L at baseline CXR:Emphysema without acute process. Continue supplemental oxygen to keep saturations 88 to 92% Continue home inhalers HTN Continue amlodipine, enalapril Also on Lasix Lower extremity edema Recently started on Lasix ECHO done in June 2022 showed EF of 65% to 70%. Monitor volume status DVT ruled out No leg edema currently Resume Lasix as able H/O Pulmonary hypertension Continue home medications Hyperlipidemia: Continue statin DVT Px: Eliquis CODE STATUS: DNR/DNI Disposition SNF likely tomorrow Admission and Anticipated Discharge Date Admission Date: February 28, 2023 Subjective Patient is seen and examined at bedside Constipation resolved Noted to have some urinary retention this morning by RN Discussed with patient's family at bedside Patient offers no new complaints Denies any chest pain, dyspnea, dizziness, nausea, vomiting, abdominal pain Waiting for rehab placement Review of Systems Review of Systems: All systems reviewed & are unremarkable except as noted in Subjective Physical Exam 2 Physical Exam: Physical Exam: Vitals signs as noted above General Appearance: Chronic ill-appearing, elderly, mild distress Head: normocephalic, Atraumatic Eyes: normal inspection, EOMI Neck: supple, Trachea midline Respiratory/Chest: Normal breath sounds, CTA, No accessory muscle use Cardiovascular: S1, S2, Tachycardia, No murmur Abdomen/GI:Soft, Non tender, Bowel sounds present Extremities/Musculoskeletal:normal inspection, + pedal edema, R hip surgical site in dressing Neurologic/Psych:AAOX3, grossly no focal neurological deficits Skin: normal color, warm Results & Data Results & Data Vital Signs (Past 12 Hours) Vital Signs Temp Pulse Resp BP Pulse Ox O2 Del Method O2 Flow Rate 03/07/23 15:52 36.8 C 96 H 16 153/71 H 96 Room Air 03/07/23 08:04 Nasal Cannula 3 03/07/23 07:18 36.3 C L 91 H 18 144/65 H 100 Nebulizer 03/07/23 07:14 90 18 98 Nasal Cannula 2 Laboratory Results Short CBC 03/07/23 Range/Units 05:53 Hgb 9.6 L (12.0-16.0) g/dl Hct 28.4 L (37.0-47.0) % BMP 03/07/23 05:53 Sodium 132 L Potassium 4.1 Chloride 90 L Carbon Dioxide 37 H BUN 18 Creatinine 0.70 Glucose 116 H Calcium 9.2
[2023-03-07] MEDS: TAMSULOSIN HCL 0.4 MG CAP PO SCH (18:34)
[2023-03-07] MEDS: DOCUSATE SODIUM 100 MG CAP PO SCH (20:19)
[2023-03-07] MEDS: SIMVASTATIN 20 MG TAB PO SCH (20:19)
[2023-03-08] MEDS: ACETAMINOPHEN 325 MG TAB PO PRN (06:02)
[2023-03-08] MEDS: FORMOTEROL 20 MCG/2 ML VIAL INH SCH (07:31)
[2023-03-08] MEDS: BUDESONIDE 0.25 MG/2 ML VIAL (PULMICORT) INH SCH (07:31)
--- NOTE | 2023-03-08 07:39 | Hospitalist Progress Note ---
Date of Service March 08, 2023 Assessment & Plan (1) Displaced fracture of right femoral neck: Plan: Patient is an 87 y- female who presents status post fall and right hip fracture. Right femur fracture Secondary to fall -Hip X ray:Acute mildly comminuted, impacted and displaced subcapital right femoral fracture. -S/P right hip bipolar hemiarthroplasty by Dr. Hancock on 03/01/2023 Pain control Fall precautions Appreciate orthopedics input PT OT as able Hemoglobin stable Needs follow-up with orthopedics in 2 weeks upon discharge Plan to be discharge to Rehab today Constipation --KUB Nonobstructive bowel gas pattern. Moderate fecal retention. Resolved Continue bowel regimen Urinary retention Bladder scan as needed Continue Flomax Voiding now with no issues Acute pulmonary embolism Acute respiratory failure with hypoxia Sinus Tachycardia likely secondary to above Mild pulmonary edema --CTA:Lingular segmental/subsegmental pulmonary emboli. No evidence for right- sided heart strain. Mild cardiomegaly with interlobular septal thickening and trace bilateral pleural effusions. This favors developing pulmonary edema. Small peripheral irregular densities within the lungs posteriorly which favor dependent change/atelectasis. Moderate emphysema. --ECHO reviewed -Venous Doppler:No DVT within the right or left lower extremity. -- Continue IV heparin: Transitioned to Eliquis --Resume lasix Continue supplemental oxygen as needed COPD Chronic respiratory failure with hypoxia--on 2 L at baseline CXR:Emphysema without acute process. Continue supplemental oxygen to keep saturations 88 to 92% Continue home inhalers HTN Continue amlodipine, enalapril Also on Lasix Lower extremity edema Recently started on Lasix ECHO done in June 2022 showed EF of 65% to 70%. Monitor volume status DVT ruled out No leg edema currently Lasix resumed H/O Pulmonary hypertension Continue home medications Hyperlipidemia: Continue statin DVT Px: Eliquis CODE STATUS: DNR/DNI Disposition SNF today Admission and Anticipated Discharge Date Admission Date: February 28, 2023 Subjective Patient is seen and examined at bedside No new complaints Able to void Urine with no issues Denies any chest pain, dyspnea, dizziness, nausea, vomiting, abdominal pain Plan to be discharged to rehab today Review of Systems Review of Systems: All systems reviewed & are unremarkable except as noted in Subjective Physical Exam Physical Exam: Physical Exam: Vitals signs as noted above General Appearance: Chronic ill-appearing, elderly, mild distress Head: normocephalic, Atraumatic Eyes: normal inspection, EOMI Neck: supple, Trachea midline Respiratory/Chest: Normal breath sounds, CTA, No accessory muscle use Cardiovascular: S1, S2, Tachycardia, No murmur Abdomen/GI:Soft, Non tender, Bowel sounds present Extremities/Musculoskeletal:normal inspection, + pedal edema, R hip surgical site in dressing Neurologic/Psych:AAOX3, grossly no focal neurological deficits Skin: normal color, warm Results & Data Results & Data Vital Signs (Past 12 Hours) Vital Signs Temp Pulse Resp BP Pulse Ox O2 Del Method O2 Flow Rate 03/08/23 07:33 105 H 18 95 Nasal Cannula 2.5 03/08/23 07:14 36.9 C 100 H 18 116/66 95 Nasal Cannula 3 03/07/23 22:00 37.1 C 102 H 18 146/73 H 93 Nasal Cannula 3 03/07/23 20:20 Nasal Cannula 3
[2023-03-08] MEDS: ASPIRIN 81 MG ECTAB PO SCH (08:35)
[2023-03-08] MEDS: ENALAPRIL MALEATE 10 MG TAB PO SCH (08:35)
[2023-03-08] MEDS: TAMSULOSIN HCL 0.4 MG CAP PO SCH (08:36)
[2023-03-08] MEDS: CHOLECALCIFEROL 1,000 UNITS 25 MCG TAB PO SCH (08:36)
[2023-03-08] MEDS: MULTIVITAMIN TAB PO SCH (08:36)
[2023-03-08] MEDS: APIXABAN 5 MG TABLET PO SCH (08:37)
[2023-03-08] MEDS: amLODIPine BESYLATE 5 MG TAB PO SCH (08:37)
[2023-03-08] MEDS: IPRATROPIUM BROMIDE NASAL SPRAY 0.06% 15ML SCH (08:38)
[2023-03-08] MEDS: FLUTICASONE PROPIONATE NA SPR 16 GM BTL SCH (08:38)
[2023-03-08] MEDS: FUROSEMIDE 40 MG TAB PO SCH (09:27)
[2023-03-08] MEDS: DOCUSATE SODIUM/SENNA 50/8.6MG TAB PO SCH (09:27)
[2023-03-08] MEDS: YUPELRI 175 MCG/3 ML EXT SCH (09:28)
--- NOTE | 2023-03-08 11:07 | Discharge Summary ---
Date of Service March 08, 2023 Admission HPI Per Admitting Provider CHIEF COMPLAINT: Status post fall and right hip fracture. HISTORY OF PRESENT ILLNESS: This is an 87-year-old female who lives at [facility], was brought in because of fall and found to have right hip fracture. Daughter is in the room. It looks like the patient does not remember exactly how she fell, but she thinks that her slipper stuck on something and she fell. Has a lot of pain in the right hip region. The patient is alert and awake. She has COPD and uses oxygen all the time, 2 liters. She says she quit smoking about 8 months ago. Currently, denies any chest pain, no shortness of breath, no cough. Because of dry throat, has some sore throat. No runny nose. No earaches. Has some mild headache. No blurred visions, no dizziness, no nausea, no abdominal pain. Normal bowel and bladder movements. Hemodynamically stable. Admission Exam Per Admitting Provider PHYSICAL EXAMINATION: GENERAL: The patient is old and frail, not in acute distress. VITAL SIGNS: Temperature 36.5, pulse 104, respiratory rate 18, blood pressure 167/85, oxygen 95% on 4 liters. HEENT: Pupils equal, round and reactive to light. Oral mucosa moist. NECK: No JVD. No neck masses. CARDIOVASCULAR: S1 and S2 heard. Regular rate and rhythm. No murmur, no gallop. RESPIRATORY SYSTEM: Normal AP diameter. No accessory muscle use. No wheezing, no crackles. ABDOMEN: Soft, bowel sounds present, nontender, no distention. CENTRAL NERVOUS SYSTEM: Alert and oriented. Speech is clear. Obeys simple commands. Insight is okay. No facial droop. Speech is clear. EXTREMITIES: Bilateral lower extremity edema seen. Right lower extremity shortened and externally rotated. No erythema seen. Principal Diagnosis Right femur fracture Fall S/P right hip bipolar hemiarthroplasty Constipation Acute pulmonary embolism Acute on chronic respiratory failure with hypoxia Suspected Urine Retention Discharge Data Allergies Allergy/AdvReac Type Severity Reaction Status Date / Time bee venom protein (honey bee) Allergy Mild RASH Verified 02/28/23 03:05 nickel AdvReac Mild Redness of Verified 02/28/23 03:05 Skin Procedures Performed Operation Date: 03/01/23 11:35 Actual Procedures p Right Bipolar Hemiarthroplasty(Right) - Ruddy Hancock MD Ordered Studies 03/02/23 06:11 CT angio chest PE protocol Stat 03/02/23 16:59 US venous doppler LE BI Routine Laboratory Results WBC 8.45 K/ul (4.8-10.8) 03/05/23 07:21 RBC 3.22 M/uL (4.20-5.40) L 03/05/23 07:21 Hgb 9.6 g/dl (12.0-16.0) L 03/07/23 05:53 POC Hgb 10.2 g/dl (12.0-16.0) L 03/02/23 05:54 Hct 28.4 % (37.0-47.0) L 03/07/23 05:53 POC Hct 30 % (37-47) L 03/02/23 05:54 MCV 89.1 fL (80.0-100.0) 03/05/23 07:21 MCH 30.4 pg (25.0-34.0) 03/05/23 07:21 MCHC 34.1 g/dL (32.0-36.0) 03/05/23 07:21 RDW Std Deviation 42.3 fL (36.4-46.3) 03/05/23 07:21 RDW Coeff of Gladis 13.0 % (11.5-14.5) 03/05/23 07:21 Plt Count 300 K/uL (130-400) 03/05/23 07:21 MPV 10.6 fL (9.4-12.4) 03/05/23 07:21 Immature Gran % (Auto) 0.3 % 03/01/23 05:37 Neut % (Auto) 91.2 % 03/01/23 05:37 Lymph % (Auto) 3.2 % 03/01/23 05:37 Day % (Auto) 5.0 % 03/01/23 05:37 Eos % (Auto) 0.1 % 03/01/23 05:37 Baso % (Auto) 0.2 % 03/01/23 05:37 Neut # (Auto) 11.35 K/uL (1.40-6.50) H 03/01/23 05:37 Lymph # (Auto) 0.40 K/uL (1.2-3.4) L 03/01/23 05:37 Day # (Auto) 0.62 K/uL (0.11-0.59) H 03/01/23 05:37 Eos # (Auto) 0.01 K/uL (0-0.50) 03/01/23 05:37 Baso # (Auto) 0.02 K/uL (0-0.2) 03/01/23 05:37 Immature Gran # (Auto) 0.04 K/uL (0.01-0.20) 03/01/23 05:37 PT 10.9 Seconds (9.0-12.0) 02/28/23 03:05 INR 1.0 (0.9-1.1) 02/28/23 03:05 APTT 48.1 Seconds (21.0-31.0) H* 03/05/23 07:21 PTT Ratio 1.7 03/05/23 07:21 Sample Site R Radial 03/02/23 05:54 POC pH 7.38 (7.35-7.45) 03/02/23 05:54 POC pCO2 57 mmHg (35-46) H 03/02/23 05:54 POC pO2 76 mmHg (80-95) L 03/02/23 05:54 POC HCO3 33 chris/L (19-24) H 03/02/23 05:54 POC Total CO2 35 mmol/L (24-31) H 03/02/23 05:54 POC Base Excess 8.0 chris/L (-9-1.8) H 03/02/23 05:54 ABG pH (Temp Correct) 7.376 (7.35-7.45) 03/02/23 05:54 ABG pCO2 (Temp Corrct 57 mmHg (35-46) H 03/02/23 05:54 POC ABG pO2 at Pt Temp 76 03/02/23 05:54 POC ABG O2 Sat 94.0 % (90-95) 03/02/23 05:54 Chai Test Pass 03/02/23 05:54 O2 Delivery Device Other 03/02/23 05:54 POC Sodium 134 mmol/L (135-144) L 03/02/23 05:54 Sodium 132 mmol/L (136-145) L 03/07/23 05:53 POC Potassium 3.8 mmol/L (3.3-5.0) 03/02/23 05:54 Potassium 4.1 mmol/L (3.5-5.1) 03/07/23 05:53 Chloride 90 mmol/L (98-107) L 03/07/23 05:53 Carbon Dioxide 37 mmol/L (21-32) H 03/07/23 05:53 Anion Gap 5 (3-11) 03/07/23 05:53 BUN 18 mg/dl (6-23) 03/07/23 05:53 Creatinine 0.70 mg/dl (0.6-1.2) 03/07/23 05:53 Est Cr Clr Drug Dosing 48.5 ml/min 03/07/23 05:53 Est GFR ( Amer) 90.3 ml/min 03/07/23 05:53 Est GFR (Non-Af Amer) 77.9 ml/min 03/07/23 05:53 BUN/Creatinine Ratio 25.7 (10-20) H 03/07/23 05:53 Glucose 116 mg/dl (70-99(Fasting)) H 03/07/23 05:53 Calcium 9.2 mg/dl (8.6-10.3) 03/07/23 05:53 Magnesium 1.8 mg/dl (1.7-2.4) 03/06/23 08:01 Total Bilirubin 0.4 mg/dl (0.2-1.0) 02/28/23 03:05 AST 19 U/L (13-39) 02/28/23 03:05 ALT 14 U/L (7-52) 02/28/23 03:05 Alkaline Phosphatase 54 U/L (34-104) 02/28/23 03:05 Troponin I High Sens 47.8 pg/ml (0-14) H 03/02/23 14:34 Total Protein 7.2 gm/dl (6.0-8.3) 02/28/23 03:05 Albumin 4.1 gm/dl (3.4-5.0) 02/28/23 03:05 Globulin 3.1 gm/dl (2.5-4.0) 02/28/23 03:05 Albumin/Globulin Ratio 1.3 (0.9-2) 02/28/23 03:05 Urine Color Yellow 02/28/23 05:00 Urine Appearance Clear (Clear) 02/28/23 05:00 Urine pH 8.0 (4.5-7.5) H 02/28/23 05:00 Ur Specific [place] 1.014 (1.000-1.030) 02/28/23 05:00 Urine Protein 2+ (Negative) H 02/28/23 05:00 Urine Glucose (UA) Negative (Negative) 02/28/23 05:00 Urine Ketones Negative (Negative) 02/28/23 05:00 Urine Blood Negative (Negative) 02/28/23 05:00 Urine Nitrite Negative (Negative) 02/28/23 05:00 Urine Bilirubin Negative (Negative) 02/28/23 05:00 Urine Urobilinogen Negative (Negative) 02/28/23 05:00 Ur Leukocyte Esterase Negative (Negative) 02/28/23 05:00 Urine WBC (Auto) 1-5 /hpf (0-5) 02/28/23 05:00 Urine RBC (Auto) 0-4 /hpf (0-4) 02/28/23 05:00 U Hyaline Cast (Auto) 0 /lpf (0-5) 02/28/23 05:00 U Epithel Cells (Auto) 5-10 /lpf (0-5) H 02/28/23 05:00 Urine Bacteria (Auto) Negative (Negative) 02/28/23 05:00 Nasal Screen MRSA (PCR) Negative (Negative) 02/28/23 21:42 SARS-CoV-2, RNA, NAAT NEGATIVE (NEGATIVE) 03/07/23 Unknown Blood Type O Positive 03/01/23 05:37 Antibody Screen NEGATIVE 03/01/23 05:37 Impressions Hip/Pelvis X-Ray 02/28/23 02:53 XR hip RT 2V w pelvis HISTORY: 87 years-old Female trauma acute right-sided hip pain status post fall COMPARISON: Radiographs 04/23/2020 TECHNIQUE: AP view of the pelvis with chest 2 views of the right hip FINDINGS: Unremarkable appearance of the left hip arthroplasty. Demineralized appearance of the bones. Degenerative changes of the lumbar spine redemonstrated. Moderate right hip osteoarthritis. There is an acute subcapital fracture which demonstrates mild comminution with impaction and superior lateral displacement of approximately 2.5 cm. Soft tissue swelling lateral to the right hip. No dislocation. IMPRESSION: Acute mildly comminuted, impacted and displaced subcapital right fe moral fracture. ACT 112: Negative or not required by law. The above report was generated using voice recognition software. It may contain grammatical, syntax or spelling errors. Electronically signed by: Ag Lopez M.D. 02/28/2023 6:44 AM Hip X-Ray 03/01/23 14:53 AP AND CROSSTABLE LATERAL RIGHT HIP History: Right total hip arthroplasty. Right hip fracture. Postop. FINDINGS: The patient is status post a right hip hemiarthroplasty. The hardware is intact. No fracture or dislocation. Skin therese are in place. IMPRESSION: Right hip hemiarthroplasty. No evidence for hardware complication ACT 112: Negative or not required by law. Electronically signed by: Arjun Shultz M.D. 03/01/2023 3:56 PM Chest X-Ray 03/02/23 05:22 XR chest 1V portable HISTORY: Shortness of breath. COMPARISON: Chest 02/28/2023. FINDINGS: Emphysema. No pneumothorax. No pleural effusions. The cardiac silhouette is top normal in size. There is a tortuous and calcified thoracic aorta again noted. A few left basilar linear densities favor subsegmental atelectasis. Progressive interstitial thickening within the upper lung zones may represent developing congestive change. No acute fractures identified. No new focal lung consolidations. IMPRESSION: 1. Emphysema. 2. Progressive interstitial thickening within the upper lung zones may represent developing congestive change. ACT 112: Negative or not required by law. Electronically signed by: Arjun Shultz M.D. 03/02/2023 7:32 AM Chest CTA 03/02/23 06:11 CHEST CTA for PULMONARY ARTERIES CT DOSE: 297.89 mGy.cm HISTORY: Shortness of breath. TECHNIQUE: Multiaxial CT images of the chest were performed following the intravenous administration of contrast to evaluate the pulmonary arteries. Maximal intensity projection images were also obtained. A dose lowering technique was utilized adhering to the principles of ALARA. COMPARISON STUDY: Chest CT 03/17/2021. FINDINGS: Limited views the upper abdomen demonstrate normal liver and spleen. Adrenal gland thickening persists and is likely age-related. There are trace bilateral pleural effusions. No pericardial effusion. The heart remains mildly enlarged. Mild circumferential thickening of the esophagus. No mediastinal or hilar lymphadenopathy. Moderate calcified plaque within the thoracic aorta with no evidence for a dissection. The ascending thoracic aorta measures up to 4 cm in diameter. This remains unchanged. Moderate coronary artery calcifications are noted. Small filling defect seen within the lingular segmental/subsegmental pulmonary arteries best seen on images 139 through 146. This is consistent with pulmonary emboli. The remaining pulmonary arteries are patent. No evidence for right-sided heart strain at this time. No acute fractures within the chest. No pneumothorax. Biapical pleural-parenchymal scarlike densities persist. There is a new small peripheral irregular density within the left upper lobe on image 224 measuring 9 mm. Moderate emphysema again noted. Bibasilar linear densities consistent with subsegmental atelectasis. A few additional small subpleural densities within the lower lobes posteriorly. These areas favor dependent change/atelectasis. Mild interstitial thickening within the upper to midlung zones which may represent developing congestive change. IMPRESSION: 1. Lingular segmental/subsegmental pulmonary emboli. 2. No evidence for right-sided heart strain. 3. Mild cardiomegaly with interlobular septal thickening and trace bilateral pleural effusions. This favors developing pulmonary edema. 4. Small peripheral irregular densities within the lungs posteriorly which favor dependent change/atelectasis. 5. Moderate emphysema. 6. Additional findings as described above. ACT 112: Negative or not required by law. Electronically signed by: Arjun Shultz M.D. 03/02/2023 7:31 AM Venous Doppler Study 03/02/23 16:59 BILATERAL LOWER EXTREMITY VENOUS DOPPLER HISTORY: Screening study for possible DVT. PE, rule out DVT COMPARISON STUDY: None. FINDINGS: There is normal compressibility, flow, and augmentation within the bilateral lower extremity deep venous systems. IMPRESSION: No DVT within the right or left lower extremity. ACT 112: Negative or not required by law. Electronically signed by: Ag Lopez M.D. 03/02/2023 5:57 PM KUB X-Ray 03/06/23 09:52 KUB HISTORY: constipation COMPARISON: Abdomen and pelvis CT 11/24/2015. FINDINGS: No dilated loops of small bowel to suggest an obstruction. The lung bases appear clear. Calcification within the aorta. Bilateral hip arthroplasties are noted. Moderate well-formed stool seen throughout the colon and rectum. This is most pronounced within the proximal colon. No renal calculi. No ureteral calculi. No pneumoperitoneum or pneumatosis. IMPRESSION: 1. Nonobstructive bowel gas pattern. 2. Moderate fecal retention. ACT 112: Negative or not required by law. Electronically signed by: Arjun Shultz M.D. 03/06/2023 11:06 AM Hospital Course (1) Displaced fracture of right femoral neck: Patient is an 87 y- female who presents status post fall and right hip fracture. Right femur fracture Secondary to fall -Hip X ray:Acute mildly comminuted, impacted and displaced subcapital right femoral fracture. -S/P right hip bipolar hemiarthroplasty by Dr. Hancock on 03/01/2023 Pain control Fall precautions Appreciate orthopedics input PT OT as able Hemoglobin stable Needs follow-up with orthopedics in 2 weeks upon discharge Plan to be discharge to Rehab today Constipation --KUB Nonobstructive bowel gas pattern. Moderate fecal retention. Resolved Continue bowel regimen Urinary retention Bladder scan as needed Continue Flomax Voiding now with no issues Acute pulmonary embolism Acute respiratory failure with hypoxia Sinus Tachycardia likely secondary to above Mild pulmonary edema --CTA:Lingular segmental/subsegmental pulmonary emboli. No evidence for right- sided heart strain. Mild cardiomegaly with interlobular septal thickening and trace bilateral pleural effusions. This favors developing pulmonary edema. Small peripheral irregular densities within the lungs posteriorly which favor dependent change/atelectasis. Moderate emphysema. --ECHO reviewed -Venous Doppler:No DVT within the right or left lower extremity. -- Continue IV heparin: Transitioned to Eliquis --Resume lasix Continue supplemental oxygen as needed COPD Chronic respiratory failure with hypoxia--on 2 L at baseline CXR:Emphysema without acute process. Continue supplemental oxygen to keep saturations 88 to 92% Continue home inhalers HTN Continue amlodipine, enalapril Also on Lasix Lower extremity edema Recently started on Lasix ECHO done in June 2022 showed EF of 65% to 70%. Monitor volume status DVT ruled out No leg edema currently Lasix resumed H/O Pulmonary hypertension Continue home medications Hyperlipidemia: Continue statin DVT Px: Eliquis CODE STATUS: DNR/DNI Disposition SNF today Total Time Total Time Spent Total Time Spent (In Minutes): 54 minutes Discharge Plan Discharge Items Patient Disposition: Transfer [facility] Reason For Visit: FALL, HIP FRACTURE Discharge Diagnosis: Right femur fracture Fall S/P right hip bipolar hemiarthroplasty Constipation Acute pulmonary embolism Acute on chronic respiratory failure with hypoxia Suspected Urine Retention Activity: Per Instructions section Exercise/Sports: Gradually increase as tolerated Non-emergency contact: Primary Care Provider and Surgeon Call non-emergency contact if: you have any medication questions, your symptoms worsen, your pain is concerning for you and you have a fever Follow-up/Referrals: Ruddy Hancock MD [Surgeon] - Sy Camarillo MD [Primary Care Provider] - Diet: Heart Healthy Diet Texture: Pureed (blended smooth) Addtl Attending Provider Instructions: Orthopaedic Instructions after Hip Fracture Surgery: Please keep your wound clean and dry. Do not remove any of the therese. Therese were removed at your follow-up appointment with orthopedic surgery. Please continue daily dressing changes until your follow-up appointment. If there is no drainage onto the dressing for total of 24 hours, you may shower after 5 days from surgery. Allow soap and water to run over the incision, no scrubbing, and pat dry. Do not submerse (sitting in bathtub, hot tub, jacuzzi, pool, etc) the wound for at least 3 weeks. You may bear weight on your lower extremities as tolerated. Please use the walker or as instructed by physical therapy. For pain control please use Tylenol as needed. You may also have a stronger pain medication prescribed to you at discharge. You can also apply ice to the surgical site. Orthopedic clinic follow-up should be in 2-3 weeks after surgery for repeat x- ray. Therese can be removed at the orthopedic follow-up. If necessary, therese can be removed by a nurse at home or at a nursing facility upon our order. Please contact the clinic. Addtl Hose Tender Provider Instructions: Follow-up with your primary care physician Dr. Camarillo in 1 week upon discharge from rehab facility Follow-up with your orthopedic surgeon in 2 weeks with repeat x-ray as recommended by your orthopedic surgeon --Continue apixaban 10 mg 2 times a day until 03/11/2023. Then take apixaban 5 mg 2 times a day starting 03/12/2023. Duration of anticoagulation with apixaban to be determined by your primary care physician. Seek immediate medical attention if your symptoms reoccur or worsen Please take all medications as instructed on discharge list below. Please call if you have any questions or problems. You can reach a [facility] hospitalist on duty at [facility] 24 hours a day by calling [phone] Pending Studies at Discharge: No Stand-Alone Forms: My [facility] Skilled Items Patient informed of condition?: Yes DNR: Yes Discharge Level of Care: Skilled Communicable Disease: No Discharge Prognosis: Stable Lines: None Urinary Catheter: No Medications and DC Order Prescriptions: New polyethylene glycol 3350 [Miralax] 17 gram Powder In Packet 17 g PO DAILY PRN (Reason: constipation) Qty: 30 0RF docusate sodium [Colace] 100 mg capsule 100 mg PO BID PRN (Reason: constipation) Qty: 30 0RF Eliquis 5 mg tablet 5 mg PO UD Qty: 60 1RF Rx Instructions: Continue apixaban 10 mg 2 times a day until 03/11/2023. Then take apixaban 5 mg 2 times a day starting 03/12/2023. tamsulosin 0.4 mg Capsule 0.4 mg PO QAM Qty: 7 0RF Continued levalbuterol HCl 0.63 mg/3 mL solution for nebulization 0.63 mg NEB Q6H PRN (Reason: shortness of breath or wheezing) 30 Days Qty: 480 3RF Rx Instructions: Use 2 vials at hs. mix with ipratropium q 6 hours PRN ipratropium bromide 42 mcg (0.06 %) spray,non-aerosol 2 spray intranasal TID Qty: 15 5RF Rx Instructions: administer into each nostril ipratropium bromide 0.02 % solution 0.5 mg inhalation Q6H PRN (Reason: shortness of breath or wheezing) 30 Days Qty: 300 3RF Rx Instructions: mix with levalbuterol q 6 hours while awake pseudoephedrine HCl [Sudafed 12 Hour] 120 mg tablet extended release 120 mg PO Q12H PRN (Reason: Congestion) multivitamin Tablet 1 tab PO DAILY azithromycin 250 mg tablet 250 mg PO .COMPLEX Qty: 36 2RF Rx Instructions: 250 mg PO 1 tab p.o. on Fvydkf-Usdwyobld-Tnrenn; amlodipine 10 mg tablet 10 mg PO DAILY Rx Instructions: bp goal 140/90 enalapril maleate 10 mg tablet 10 mg PO DAILY epinephrine [EpiPen] 0.3 mg/0.3 mL auto-injector 0.3 mg IM UD PRN (Reason: Allergic Reaction) simvastatin 20 mg tablet 20 mg PO QPM aspirin 81 mg tablet,delayed release (DR/EC) 81 mg PO DAILY furosemide 40 mg Tablet 40 mg PO QAM cholecalciferol (vitamin D3) [Vitamin D3] 50 mcg (2,000 unit) Tablet 50 mcg PO QAM fluticasone propionate 50 mcg/actuation spray,suspension 2 spray intranasal BID Rx Instructions: administer into each nostril arformoterol [Brovana] 15 mcg/2 mL solution for nebulization 2 ml inhalation [facility] Yupelri 175 mcg/3 mL solution for nebulization 175 mcg inhalation QAM ipratropium-albuterol 0.5 mg-3 mg(2.5 mg base)/3 mL solution for nebulization 3 ml inhalation Q8H PRN (Reason: SOB,wheezing or dyspnea) budesonide 0.25 mg/2 mL suspension for nebulization 0.25 mg inhalation [facility] sennosides-docusate sodium 8.6-50 mg Tablet 1 tab-cap PO QAM Discharge Orders: Discharge Order (Routine); Ordered 03/08/23 Ordered By: David Cisse/Other Patient Handouts: Apixaban Oral Tablet Admission Data Admit Date/Time: 02/28/23 04:38 Attending Provider: David Lyn Admit Provider: Gregorio Cantu Primary Care Provider: Sy Camarillo Other Providers: Kristin Thacker [facility] ; [place] Other Interventions: Discharge Summary Assessment (RN) Last Done: 03/08/23 10:16
== END 2023-03-08 10:56 | DRG 521 ==
LOC: ED 02:44 → SUATTDRO 04:38 → EDINP 04:38 → 2N 05:58 → 3E 03-01 16:46 → 2S 03-02 06:58 → 3W 03-06 15:23